=== PATIENT | male | born 1950 | race Caucasian/White ===

== ENCOUNTER 2017-01-17 18:50 | Inpatient (IN) | payer OTHER ==
[~2017-01-17 18:50] MED LIST: AMIO200 PO; ASPI325T PO; LIVA2TAB PO; METO50CR PO; RAMI10CA35 PO; TICA90 PO
[2017-01-17 18:55] VITALS: BP 189/103; PULSE 68; RESP 20; O2SAT 98
[2017-01-17] MEDS ORDERED: BRIL90TA PO (19:10)
[2017-01-17] MEDS ORDERED: METO100T PO (19:10)
[2017-01-17] MEDS ORDERED: RAMI10CA PO (19:10)
[2017-01-17] MEDS ORDERED: LIVA2TAB PO (19:10)
[2017-01-17 19:29] LABS: AUTOMATED NEUTROPHIL # 4.1 TH/MM3 (1.8-7.7); BASOPHIL % 0.5 % (0.0-2.0); EOSINOPHIL # 0.1 TH/MM3 (0-0.4); EOSINOPHIL % 1.9 % (0.0-4.0); HEMATOCRIT 42.4 % (39.0-51.0); HEMO FLAGS DIFF FINAL; LYMPH % 23.9 % (9.0-44.0); LYMPHOCYTE # 1.5 TH/MM3 (1.0-4.8); MEAN CELL VOLUME 81.1 FL (80.0-100.0); MEAN CORPUSCULAR HGB CONC 33.2 % (32.0-36.0); MONO % 8.2 % (0.0-8.0); NEUT % 65.5 % (16.0-70.0); PLATELET COUNT 165 TH/MM3 (150-450); RED BLOOD COUNT 5.23 MIL/MM3 (4.50-5.90); RED CELL DISTRIBUTION WIDTH 13.5 % (11.6-17.2); WHITE BLOOD COUNT 6.2 TH/MM3 (4.0-11.0)
[2017-01-17] MEDS ORDERED: ASPIRIN 81 MG CHEW TAB PO ONE (19:30)
[2017-01-17] MEDS ORDERED: SODIUM CHLORIDE 0.9% FLUSH 10 ML FLUSH IVF PRN (19:30)
[2017-01-17 19:37] LABS: CHLORIDE 107 MEQ/L (98-107); POTASSIUM 3.7 MEQ/L (3.5-5.1); SODIUM (NA) 142 MEQ/L (136-145)
[2017-01-17 19:40] LABS: ANION GAP 10 MEQ/L (5-15); BICARBONATE 25.4 MEQ/L (21.0-32.0)
[2017-01-17 19:41] LABS: BLOOD UREA NITROGEN 19 MG/DL (7-18); MAGNESIUM 2.3 MG/DL (1.5-2.5)
[2017-01-17 19:42] LABS: APTT (PATIENT) 28.9 SEC (24.3-30.1); INTERNATIONAL NORMALIZED RATIO 0.9 RATIO; PROTHROMBIN TIME - PATIENT 10.2 SEC (9.8-11.6)
[2017-01-17 19:44] LABS: ALT (GPT) 40 U/L (12-78); AST (GOT) 20 U/L (15-37); GLOMERULAR FILTRATION RATE 56 ML/MIN (>89)
[2017-01-17 19:45] LABS: TOTAL BILIRUBIN ADULT 0.3 MG/DL (0.2-1.0)
[2017-01-17 19:46] LABS: ALKALINE PHOSPHATASE 65 U/L (45-117)
--- NOTE | 2017-01-17 19:47 | RADHPO ---
EXAM DATE/TIME: 01/17/2017 19:27 [place] COMPARISON: CHEST SINGLE AP, February 22, 2016, 11:11. INDICATIONS : Chest pressure and pain since yesterday. MEDICAL HISTORY : Hypertension. SURGICAL HISTORY : CABG. Coronary artery stent. ENCOUNTER: Initial ACUITY: 2 days PAIN SCORE: 3/10 LOCATION: Left chest FINDINGS: The lungs are symmetrically aerated. There is a 2.5 cm peripherally calcified lesion in the upper la teral right lung which was present on prior chest x-ray in February 2016. The heart is normal in size. M ild tortuosity descending thoracic aorta. Evidence of prior median sternotomy. No evidence of pleur al effusion. CONCLUSION: No infiltrate seen. Stable peripherally calcified 2.5 cm lesion in the upper lateral right lung. Marcello Trujillo MD on January 17, 2017 at 19:44 Board Certified Radiologist. This report was verified electronically.
[2017-01-17 19:52] LABS: CREATINE KINASE 89 U/L (39-308)
[2017-01-17] MEDS ORDERED: NITROGLYCERIN 0.4 MG SL 25 TABS/BTL SL SCH (20:00)
[2017-01-17] MEDS ORDERED: HEPARIN SODIUM - IV 10,000 UNITS/10 ML VIAL IV ONE (20:30)
[2017-01-17] MEDS ORDERED: HEPARIN-D5W INJ 250 ML IV SCH (20:30)
[2017-01-17] MEDS ORDERED: MORPHINE SULFATE 4 MG/ML INJ IV PUSH PRN (21:00)
[2017-01-17] MEDS ORDERED: SODIUM CHLOR 0.9% 1000 ML INJ 1,000 ML IV SCH (21:00)
[2017-01-17] MEDS ORDERED: ONDANSETRON HCL 4 MG/2 ML VIAL IV PUSH PRN (21:00)
--- NOTE | 2017-01-17 21:20 | PD ---
HPI Chief Complaint: Chest Pain Time Seen by Provider: 19:16 Travel History International Travel<30 days: No Contact w/Intl Traveler<30days: No Traveled to known affect area: No History of Present Illness HPI Patient 66-year-old male with an extensive coronary artery disease history presents emergency Department with chest tightness on and off today last chest tightness was approximately 4:00 in the afternoon. Patient has a history of CABG in 2005 with extensive grafting to it appears to be the left coronary artery system. Patient is also been seen by Dr. Hankins in February 2016 and had coronary angiography for a NSTEMI at that time which showed significant disease in the distal right coronary artery posterior lateral branch as well as the mid right coronary artery and had stenting at that time to the distal right coronary artery. 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 Ivan in his home town. Today patient states he was having some chest tightness and sometimes just rating the left shoulder and bilateral neck which lasted for several minutes and then resolved when he relaxed. He states that he had this type of symptom in the past and decided he wanted to come in to check on make sure wasn't anything serious because he does not want to have CABG again. He does endorse some mild shortness of breath denies any nausea vomiting. Was on Xarelto in the past but is not taking that anymore and was on that for paroxysmal atrial fibrillation. He does take Brilinta every day. PFSH Past Medical History Hx Anticoagulant Therapy: Yes (XARELTO) Atrial Fibrillation: Yes Cardiovascular Problems: Yes High Cholesterol: Yes Coronary Artery Disease: Yes Diminished Hearing: No Deep Vein Thrombosis: Yes (CLOT POST KNEE SURGERY) Hypertension: Yes Myocardial Infarction: Yes Tetanus Vaccination: < 5 Years Influenza Vaccination: No ?: Not Past Surgical History Cardiac Surgery: Yes (CABG X 3) Other Surgery: Yes (INGUINAL HERANIA REPAIR RIGHT) Social History Alcohol Use: No Tobacco Use: Yes (QUIT CIGARS JUL 2016) Substance Use: No Allergies-Medications (Allergen,Severity, Reaction): Coded Allergies: Sulfa (Verified Allergy, Severe, HIVES,ITCHING, 02/22/16) Reported Meds & Prescriptions Reported Meds & Active Scripts Active Cordarone 200 Mg Tab (Amiodarone HCl) 200 Mg Tab 200 Mg PO DAILY 30 Days Brilinta 90 Mg Tab (Ticagrelor) 90 Mg Tab 90 Mg PO BID 30 Days Metoprolol Succinate ER 50 mg (Metoprolol Succinate) 50 Mg Tab 100 Mg PO HS 30 Days Reported Metoprolol Tartrate 100 Mg Tab 100 Mg PO BID Livalo (Pitavastatin) 2 Mg Tab 2 Mg PO DAILY Ramipril 10 Mg Cap 10 Mg PO DAILY Brilinta (Ticagrelor) 90 Mg Tab 90 Mg PO BID Livalo (Pitavastatin) 2 Mg Tab 2 Mg PO HS Aspirin 325 mg (Aspirin) 325 Mg Tab 325 Mg PO DAILY Ramipril 10 mg (Ramipril) 10 Mg Cap 1 Cap PO DAILY Review of Systems Except as stated in HPI: all other systems reviewed are Neg Physical Exam Narrative GENERAL: Well-developed well-nourished, appears quite comfortable in no apparent distress. SKIN: Focused skin assessment warm/dry. HEAD: Atraumatic. Normocephalic. EYES: Pupils equal and round. No scleral icterus. No injection or drainage. ENT: No nasal bleeding or discharge. Mucous membranes pink and moist. NECK: Trachea midline. No JVD. CARDIOVASCULAR: Regular rate and rhythm. No murmur appreciated. 2+ bilaterally equal pulses in all 4 extremity's. Well-healed midline sternotomy scar. RESPIRATORY: No accessory muscle use. Clear to auscultation. Breath sounds equal bilaterally. GASTROINTESTINAL: Abdomen soft, non-tender, nondistended. Hepatic and splenic margins not palpable. MUSCULOSKELETAL: No obvious deformities. No clubbing. No cyanosis. No edema. NEUROLOGICAL: Awake and alert. No obvious cranial nerve deficits. Motor grossly within normal limits. Normal speech. PSYCHIATRIC: Appropriate mood and affect; insight and judgment normal. Data Data Last Documented VS Vital Signs Date Time Temp Pulse Resp B/P Pulse Ox O2 Delivery O2 Flow Rate FiO2 01/17/17 19:10 20 01/17/17 18:55 68 189/103 98 Orders Ckmb (Isoenzyme) Profile (01/17/17 19:16) Complete Blood Count With Diff (01/17/17 19:16) Comprehensive Metabolic Panel (01/17/17 19:16) Magnesium (Mg) (01/17/17 19:16) Prothrombin Time / Inr (Pt) (01/17/17 19:16) Act Partial Throm Time (Ptt) (01/17/17 19:16) Troponin I (01/17/17 19:16) Chest, Single Ap (01/17/17 19:16) Ecg Monitoring (01/17/17 19:16) Bilateral Bp Monitoring (01/17/17 19:16) Iv Access Insert/Monitor (01/17/17 19:16) Oximetry (01/17/17 19:16) Oxygen Administration (01/17/17 19:16) Aspirin Chew (Aspirin Chew) (01/17/17 19:30) Sodium Chloride 0.9% Flush (Ns Flush) (01/17/17 19:30) Electrocardiogram (01/17/17 18:51) Nitroglycerin Sl (Nitrostat Sl) (01/17/17 20:00) Heparin Infusion FAY.Q1H (01/17/17 20:19) Heparin Inj (Heparin Inj) (01/17/17 20:30) Heparin Inj (Heparin Inj) (01/18/17 02:30) Heparin Inj (Heparin Inj) (01/18/17 02:30) Heparin-D5w Inj (Heparin-D5w Inj) (01/17/17 20:30) Cbc No Diff, Includes Plts (01/20/17 06:00) Act Partial Throm Time (Ptt) (01/18/17 03:19) Occult Blood (Hemoccult) Stool (01/17/17 20:19) Admit Order (Ed Use Only) (01/17/17 ) Labs Laboratory Tests Test 01/17/17 19:00 White Blood Count 6.2 TH/MM3 Red Blood Count 5.23 MIL/MM3 Hemoglobin 14.1 GM/DL Hematocrit 42.4 % Mean Corpuscular Volume 81.1 FL Mean Corpuscular Hemoglobin 27.0 PG Mean Corpuscular Hemoglobin 33.2 % Concent Red Cell Distribution Width 13.5 % Platelet Count 165 TH/MM3 Mean Platelet Volume 9.3 FL Neutrophils (%) (Auto) 65.5 % Lymphocytes (%) (Auto) 23.9 % Monocytes (%) (Auto) 8.2 % Eosinophils (%) (Auto) 1.9 % Basophils (%) (Auto) 0.5 % Neutrophils # (Auto) 4.1 TH/MM3 Lymphocytes # (Auto) 1.5 TH/MM3 Monocytes # (Auto) 0.5 TH/MM3 Eosinophils # (Auto) 0.1 TH/MM3 Basophils # (Auto) 0.0 TH/MM3 CBC Comment DIFF FINAL Differential Comment Prothrombin Time 10.2 SEC Prothromb Time International 0.9 RATIO Ratio Activated Partial 28.9 SEC Thromboplast Time Sodium Level 142 MEQ/L Potassium Level 3.7 MEQ/L Chloride Level 107 MEQ/L Carbon Dioxide Level 25.4 MEQ/L Anion Gap 10 MEQ/L Blood Urea Nitrogen 19 MG/DL Creatinine 1.30 MG/DL Estimat Glomerular Filtration 56 ML/MIN Rate Random Glucose 91 MG/DL Calcium Level 8.5 MG/DL Magnesium Level 2.3 MG/DL Total Bilirubin 0.3 MG/DL Aspartate Amino Transf 20 U/L (AST/SGOT) Alanine Aminotransferase 40 U/L (ALT/SGPT) Alkaline Phosphatase 65 U/L Total Creatine Kinase 89 U/L Troponin I 0.62 NG/ML Total Protein 7.7 GM/DL Albumin 3.6 GM/DL [facility] Medical Decision Making Medical Screen Exam Complete: Yes Emergency Medical Condition: Yes Interpretation(s) EKG shows normal sinus rhythm left axis deviation, incomplete left bundle branch block with poor R-wave progression. No concerning ST-T changes. Intervals otherwise within normal limits. Is a borderline EKG. Comparison of shows no change. Differential Diagnosis ACS, [place], CAD, NSTEMI, Narrative Course Patient roomed in emergency department, on arrival he is chest pain and chest tightness free. Mildly hypertensive. Without intervention his blood pressure has come down. He was given nitro paste aspirin as well as heparin after his troponin returned positive at 0.6. Patient was discussed with Dr. Estrella who is on -call for Dr. Botello's. Like the patient transferred to the main hospital for possible intervention tomorrow. Patient was discussed with Dr. Ritchie and he is willing to admit the patient. Patient is stable for transportation at this time. Last 24 hours Impressions Chest X-Ray 01/17/171915 Signed Impressions: Service Date/Time: Tuesday, January 17, 2017 19:27 - CONCLUSION: No infiltrate seen. Stable peripherally calcified 2.5 cm lesion in the upper lateral right lung. Marcello Trujillo MD Diagnosis Primary Impression: NSTEMI (non-ST elevated myocardial infarction) Admitting Information Admitting Physician Requests: Admit Condition: Stable Mack Zacarias MD Jan 17, 2017 21:20
[2017-01-17 21:30] VITALS: BP 169/97; PULSE 63; O2SAT 97
[2017-01-17 21:54] VITALS: O2SAT 95
[2017-01-17] MEDS ORDERED: NITROGLYCERIN 2% OINT 1 GM PACKET TOPICAL ONE (22:00)
[2017-01-17 22:41] VITALS: BP 148/82; PULSE 56; O2SAT 94
[2017-01-17 23:51] VITALS: BP 160/92; PULSE 59; RESP 18; TEMP 98; O2SAT 92
[2017-01-18] VITALS (15 sets, daily range): BP systolic 138–178; BP diastolic 80–106; PULSE 51–66; RESP 16–18; TEMP 97.4–98.6; O2SAT 93–99
--- NOTE | 2017-01-18 01:47 | HHI.HP ---
[facility] Service [facility] Primary Care Physician Mariia Chawla MD Admission Diagnosis NSTEMI Diagnoses: (1) NSTEMI (non-ST elevated myocardial infarction) Diagnosis: Principal Chief Complaint: chest tightness Travel History International Travel<30 Days: No Contact w/Intl Traveler <30 Da: No Traveled to Known Affected Are: No History of Present Illness patient is a 66 y/o male with history of CAD- s/p stent placement presented to ER with chest tightness. he says that he started to have chest pain a couple of days ago. pain was described as tightness with some radiation to both jaws. pain was not associated with nausea, vomiting, sob or diaphoresis. there was no specific aggravating or alleviating factors. he was pain free at the time of my evaluation. Review of Systems Constitutional: DENIES: Fever, Weight loss, Chills, Night Sweats Eyes: DENIES: Blurred vision, Diplopia, Vision loss, Double Vision Ears, nose, mouth, throat: DENIES: Tinnitus, Vertigo, Throat pain, Epistaxis Respiratory: DENIES: Apneas, Cough, Snoring, Wheezing, Hemoptysis, Sputum production, Shortness of breath Cardiovascular: COMPLAINS OF: Chest pain, DENIES: Palpitations, Syncope, Dyspnea on Exertion, PND, Lower Extremity Edema, Orthopnea, Claudication Gastrointestinal: DENIES: Abdominal pain, Black stools, Bloody stools, Constipation, Diarrhea, Nausea, Vomiting, Difficulty Swallowing, Anorexia Genitourinary: DENIES: Urinary frequency, Urgency, Hematuria, Dysuria Musculoskeletal: DENIES: Joint pain, Muscle aches, Stiffness, Joint Swelling Integumentary: DENIES: Rash Neurologic: DENIES: Abnormal gait, Headache, Localized weakness, Paresthesias, Seizures, Speech Problems, Tremor, Poor Balance Psychiatric: DENIES: Anxiety, Confusion, Mood changes, Depression, Hallucinations, Agitation, Suicidal Ideation, Homicidal Ideation, Delusions Past Family Social History Past Medical History CAD hypertension dyslipidemia Past Surgical History knee/ shoulder surgery hernia repair Reported Medications Metoprolol Tartrate 100 Mg Tab 100 Mg PO BID Livalo (Pitavastatin) 2 Mg Tab 2 Mg PO DAILY Ramipril 10 Mg Cap 10 Mg PO DAILY Brilinta (Ticagrelor) 90 Mg Tab 90 Mg PO BID Livalo (Pitavastatin) 2 Mg Tab 2 Mg PO HS Aspirin 325 mg (Aspirin) 325 Mg Tab 325 Mg PO DAILY Ramipril 10 mg (Ramipril) 10 Mg Cap 1 Cap PO DAILY Allergies: Coded Allergies: Sulfa (Verified Allergy, Severe, HIVES,ITCHING, 02/22/16) Active Ordered Medications Current Medications Aspirin (Aspirin Chew) 324 mg ONCE ONCE PO Last administered on 01/17/17 19:22 ; Start 01/17/17 at 19:30; Stop 01/17/17 at 19:31; Status DC Sodium Chloride (NS Flush) 2 ml UNSCH PRN IVF FLUSH AFTER USING IV ACCESS; Start 01/17/17 at 19:30 Nitroglycerin (Nitrostat Sl) 0.4 mg Q5M SL ; Start 01/17/17 at 20:00; Stop at 20:11; Status DC Heparin Sodium (Porcine) (Heparin Inj) 5,000 units ONCE ONCE IV Last administered on 01/17/17 20:51; Start 01/17/17 at 20:30; Stop 01/17/17 at 20:41; Status DC Heparin Sodium (Porcine) (Heparin Inj) 5,000 units UNSCH PRN IV APTT LESS THAN 25; Start 01/18/17 at 02:30 Heparin Sodium (Porcine) 2500 units 2,500 units UNSCH PRN IV APTT 25 TO 39; Start 01/18/17 at 02:30 Heparin Sodium/ Dextrose (Heparin-D5W Inj) 250 ml @ 0 mls/hr TITRATE IV Last administered on 01/17/17 20:54; Start 01/17/17 at 20:30 Morphine Sulfate (Morphine Inj) 2 mg Q4HR PRN IV PUSH PAIN SCALE 1 TO 10; Start 01/17/17 at 21:00 Ondansetron HCl 4 mg 4 mg Q8HR PRN IV PUSH NAUSEA; Start 01/17/17 at 21:00 Sodium Chloride (NS 1000 ml Inj) 1,000 ml @ 100 mls/hr Q10H IV Last administered on 01/17/17 21:39; Start 01/17/17 at 21:00 Nitroglycerin (Nitroglycerin 2% Oint) 0.5 inch ONCE ONCE TOPICAL Last administered on 01/17/17t 22:04; Start 01/17/17 at 22:00; Stop 01/17/17 at 22:01; Status DC Family History stroke in father. Social History no smoking or drinking. Physical Exam Vital Signs Vital Signs Date Time Temp Pulse Resp B/P Pulse Ox O2 Delivery O2 Flow Rate FiO2 01/17/17 23:51 98.0 59 18 160/92 92 01/17/17 22:41 56 148/82 94 01/17/17 21:54 95 01/17/17 21:30 63 169/97 97 01/17/17 19:10 20 01/17/17 18:55 68 20 189/103 98 Physical Exam GENERAL: This is a well-nourished, well-developed patient, in no apparent distress. SKIN: No rashes, ecchymoses or lesions. Cool and dry. HEAD: Atraumatic. Normocephalic. No temporal or scalp tenderness. EYES: Pupils equal round and reactive. Extraocular motions intact. No scleral icterus. No injection or drainage. ENT: Nose without bleeding, purulent drainage or septal hematoma. Throat without erythema, tonsillar hypertrophy or exudate. Uvula midline. Airway patent. NECK: Trachea midline. No JVD or lymphadenopathy. Supple, nontender, no meningeal signs. CARDIOVASCULAR: Regular rate and rhythm without murmurs, gallops, or rubs. RESPIRATORY: Clear to auscultation. Breath sounds equal bilaterally. No wheezes , rales, or rhonchi. GASTROINTESTINAL: Abdomen soft, non-tender, nondistended. No hepato-splenomegaly , or palpable masses. No guarding. MUSCULOSKELETAL: Extremities without clubbing, cyanosis, or edema. No joint tenderness, effusion, or edema noted. No calf tenderness. Negative Homans sign bilaterally. NEUROLOGICAL: Awake and alert. Cranial nerves II through XII intact. Motor and sensory grossly within normal limits. Five out of 5 muscle strength in all muscle groups. Normal speech. Laboratory Laboratory Tests Test 01/17/17 19:00 White Blood Count 6.2 Red Blood Count 5.23 Hemoglobin 14.1 Hematocrit 42.4 Mean Corpuscular Volume 81.1 Mean Corpuscular Hemoglobin 27.0 Mean Corpuscular Hemoglobin 33.2 Concent Red Cell Distribution Width 13.5 Platelet Count 165 Mean Platelet Volume 9.3 Neutrophils (%) (Auto) 65.5 Lymphocytes (%) (Auto) 23.9 Monocytes (%) (Auto) 8.2 Eosinophils (%) (Auto) 1.9 Basophils (%) (Auto) 0.5 Neutrophils # (Auto) 4.1 Lymphocytes # (Auto) 1.5 Monocytes # (Auto) 0.5 Eosinophils # (Auto) 0.1 Basophils # (Auto) 0.0 CBC Comment DIFF FINAL Differential Comment Prothrombin Time 10.2 Prothromb Time International 0.9 Ratio Activated Partial 28.9 Thromboplast Time Sodium Level 142 Potassium Level 3.7 Chloride Level 107 Carbon Dioxide Level 25.4 Anion Gap 10 Blood Urea Nitrogen 19 Creatinine 1.30 Estimat Glomerular Filtration 56 Rate Random Glucose 91 Calcium Level 8.5 Magnesium Level 2.3 Total Bilirubin 0.3 Aspartate Amino Transf 20 (AST/SGOT) Alanine Aminotransferase 40 (ALT/SGPT) Alkaline Phosphatase 65 Total Creatine Kinase 89 Troponin I 0.62 Total Protein 7.7 Albumin 3.6 Result Diagram: 01/17/17189901/17/171899 Imaging Last Impressions Chest X-Ray 01/17/171915 Signed Impressions: Service Date/Time: Tuesday, January 17, 2017 19:27 - CONCLUSION: No infiltrate seen. Stable peripherally calcified 2.5 cm lesion in the upper lateral right lung. Marcello Trujillo MD EKG; sinus rhythm with no acute St-T changes Assessment and Plan Assessment and Plan A/P - NSTEMI with history of CAD/ stent placement received Aspirin in ER and started on heparin drip- resume BB- will trend the cardiac enzymes- cardiology consulted. -hypertension/ dyslipidemia; will resume the home meds -DVT prophylaxis; on heparin drip Discussed Condition With ER physician and the patient. Physician Certification 2 Midnight Certification Type: Admission for Inpatient Services Order for Inpatient Services The services are ordered in accordance with Medicare regulations or non- Medicare payer requirements, as applicable. In the case of services not specified as inpatient-only, they are appropriately provided as inpatient services in accordance with the 2-midnight benchmark. Estimated LOS (days): 2 days is the estimated time the patient will need to remain in the hospital, assuming treatment plan goals are met and no additional complications. Post-Hospital Plan: Home Esther Cortez MD Jan 18, 2017 01:47
[2017-01-18] MEDS ORDERED: HEPARIN SODIUM - IV 10,000 UNITS/10 ML VIAL IV PRN ×2 (02:30)
[2017-01-18 05:01] LABS: APTT (PATIENT) 57.8 SEC (24.3-30.1)
--- NOTE | 2017-01-18 08:06 | HHI.PR ---
Addendum to Inpatient Note Addendum Reason: Additional Documentation Additional Information Pt presented w NSTEMI I evaluated the patient and currently he is chest pain free at this time. Hoping to go home soon. Saw Dr. 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 States that he didn't have any chest pain but was experiencing chest tightness on and off and decided to come in to get checked. at this time, no nausea or vomiting, or any diaphoresis or lightheadedness. on Exam CVS RRR w no murmurs, lungs are clear to auscultation, abdomen soft, NT no guarding or rebound. Moves all extremities. Plan: - NSTEMI with history of CAD/ stent placement received Aspirin in ER and started on heparin drip- on BB, continue ASA, supplemental oxygen, nitroglycerin - trop 0.62-->0.55--> pending- cardiology consulted. -hypertension/ dyslipidemia; home meds resumed. monitor and adjust BP meds -DVT prophylaxis; on heparin ip Debora Alexandra MD Jan 18, 2017 08:06
[2017-01-18] MEDS ORDERED: NITROGLYCERIN 2% OINT 1 GM PACKET TOPICAL PRN (08:15)
[2017-01-18 08:20] LABS: HDL CHOLESTEROL 59.6 MG/DL (40.0-60.0)
[2017-01-18] MEDS ORDERED: LIVALO 2 MG PO SCH (09:00)
[2017-01-18] MEDS ORDERED: ASPIRIN 325 MG TAB PO SCH ×2 (09:00→10:30)
--- NOTE | 2017-01-18 09:50 | EKG ---
Date Performed: 01/17/2017 Time Performed: 18:51:06 PTAGE: 66 years EKG: Sinus rhythm . PREVIOUS TRACING : 02/26/2016 08.35 DOCTOR: Claus Wetzel Interpretating Date/Time 01/18/2017 09:49:31
[2017-01-18] MEDS: RAMIPRIL 5 MG CAP PO SCH (10:20)
[2017-01-18] MEDS: METOPROLOL TARTRATE 100 MG TAB PO SCH ×2 (10:20→20:51)
[2017-01-18] MEDS ORDERED: SODIUM CHLOR 0.9% 1000 ML INJ 1,000 ML IV SCH (10:23)
[2017-01-18] MEDS ORDERED: DIAZEPAM 10 MG TAB PO SCH (10:30)
[2017-01-18] MEDS ORDERED: diphenhydrAMINE HCL 50 MG CAP PO SCH (10:30)
--- NOTE | 2017-01-18 11:07 | MB ---
cc: YUNIOR LOPEZ DATE OF CONSULTATION 01/18/2017 DATE OF 1950 REASON FOR CONSULTATION Abnormal cardiac enzymes, unstable angina. HISTORY OF PRESENT ILLNESS The patient is a 66-year-old white male with a history of coronary artery disease, hypertension, hyperlipidemia, paroxysmal atrial fibrillation, mild ischemic cardiomyopathy who was doing well up until a few days ago when he began to experience intermittent episodes of brief substernal chest tightness occasionally associated with shortness of breath. Two nights ago, he experienced the discomfort while lying in bed. Yesterday he had multiple episodes of chest discomfort, so he finally decided to come to the emergency room for further evaluation. He states none of the episodes of chest discomfort lasted more than a few minutes. The symptoms are similar to his previous angina. He denies pleurisy, dizziness, syncope, near-syncope, palpitations, pedal edema, paroxysmal nocturnal dyspnea. He reports compliance with his medications and exercise activities. Cardiac enzymes were checked here in the hospital and found to be slightly abnormal. PAST MEDICAL HISTORY 1. Paroxysmal atrial fibrillation. 2. Mild ischemic cardiomyopathy with ejection fraction of 40-45% by echo 06/22/2016. 3. Hypertension 4. Hyperlipidemia 5. Coronary artery disease status post bypass surgery 2005, status post myocardial infarction and percutaneous coronary intervention in 2010. His last heart catheterization was 02/23/2016 showing minimal left main disease, totally occluded proximal LAD, totally occluded obtuse marginal, 60-70% proximal and 95% mid right coronary artery stenoses, patent distal right coronary stent, 95% distal right coronary lesion, 80% ostial posterior descending artery (small caliber), patent Y-graft to the diagonal and obtuse marginal, patent left internal mammary artery to the LAD. At that time, he underwent stenting of the distal right coronary with a 3.0-mm Resolute and stent of the proximal to mid right coronary with a 3.5 x 34 Resolute. His posterior descending artery ostium was also angioplastied, but was jailed with deployment of the distal right coronary stent. CARDIAC MEDICATIONS AT HOME 1. Amiodarone 200 mg daily 2. Aspirin 81 mg daily 3. Brilinta 90 mg b.i.d. 4. Livalo 2 mg q.h.s. 5. Metoprolol succinate 100 mg daily 6. Ramipril 10 mg daily ALLERGIES SULFA FAMILY HISTORY Noncontributory SOCIAL HISTORY The patient is a former smoker. He denies alcohol abuse. REVIEW OF SYSTEMS As in the history of present illness, otherwise negative or noncontributory. He also denies headache, abdominal pain, melena, dyspepsia, bright red blood per rectum, fevers. PHYSICAL EXAM On physical examination, his blood pressure is 153/83 with a pulse of 59, respirations 18. GENERAL: In general, he is a well-developed, well-nourished white male in no acute distress. HEENT: On examination, jugular venous pressure is normal. Carotid pulses are 2+ bilaterally and without bruits. CHEST: Examination of the chest reveals clear lung riddle. CARDIAC: On cardiac examination, he has a regular rhythm and rate without S3, S4 or murmur. ABDOMEN: On abdominal examination, he has a soft, nontender abdomen. Bowel sounds are present. There is no definite hepatosplenomegaly. EXTREMITIES: Examination of extremities reveals no clubbing, cyanosis or edema. Peripheral pulses are normal throughout. LABORATORY DATA Includes normal CBC, potassium 3.7, BUN 19, creatinine 1.30, troponin 0.62, CK 89, total cholesterol 131, LDL 52, HDL 60, triglycerides 98. IMAGING Chest x-ray shows no acute disease. EKG Shows sinus rhythm, poor R-wave progression, nonspecific T-wave abnormalities. IMPRESSION Unstable angina in this 66-year-old white male with a history of coronary disease, hypertension, hyperlipidemia, paroxysmal atrial fibrillation, ejection fraction 40-45%. The patient's symptoms over the last few days are most consistent with recurrent angina in an overall unstable pattern. He has had episodes of angina at rest. Troponin levels are slightly abnormal. A CK level is negative for myocardial infarction. EKG shows no definite acute diagnostic ST-segment or T-wave changes. I suspect he has restenosed his distal right coronary artery stent. Because of the instability of his symptoms, I have recommended he undergo cardiac catheterization with possible repeat percutaneous coronary intervention the risks of which have been explained to him including, but not limited to , myocardial infarction, stroke, arrhythmia, bleeding, infection, renal failure. He agrees to proceed. RECOMMENDATIONS 1. Cardiac catheterization today. 2. Continue his usual home cardiac medications MandoMD ADRIANNA Perez/MAYTE /10:17 AM /10:46 AM KATHLEEN
[2017-01-18 11:15] LABS: APTT (PATIENT) 43.9 SEC (24.3-30.1)
[2017-01-18] MEDS ORDERED: MIDAZOLAM HCL 2 MG/2 ML VIAL ONE (16:03)
[2017-01-18] MEDS ORDERED: HEPARIN-NS/PF INJ 500 ML ONE (16:03)
[2017-01-18] MEDS ORDERED: TIROFIBAN INFUSION INJ 250 ML IV ONE (16:23)
[2017-01-18] MEDS: TIROFIBAN INFUSION INJ 250 ML IV SCH (16:26)
[2017-01-18] MEDS ORDERED: HEPARIN SODIUM - IV 10,000 UNITS/10 ML VIAL ONE (16:27)
[2017-01-18] MEDS ORDERED: TICAGRELOR 90 MG TAB PO ONE (16:51)
[2017-01-18] MEDS ORDERED: MISC INFORMATION XX ONE (17:15)
[2017-01-18] MEDS ORDERED: SODIUM CHLORIDE 0.9% FLUSH 5 ML FLUSH IVF PRN (17:15)
[2017-01-18] MEDS ORDERED: TEMAZEPAM 15 MG CAP PO PRN (17:15)
[2017-01-18] MEDS: AMIODARONE 200 MG TAB PO SCH ×2 (18:12→18:35)
[2017-01-18] MEDS: SODIUM CHLOR 0.9% 1000 ML INJ 1,000 ML IV SCH (18:13)
[2017-01-18] MEDS ORDERED: hydrALAZINE HCL 10 MG TAB PO PRN (18:30)
[2017-01-18] MEDS ORDERED: ENALAPRILAT 1.25 MG/ML VIAL IV PUSH PRN (18:30)
--- NOTE | 2017-01-18 19:34 | MA ---
cc: KIRK LOPEZ M.D. DATE 01/18/2017 Cc: PROCEDURE Left heart catheterization, selective coronary and graft angiography, left ventriculography, primary stenting of the proximal right coronary artery. PROCEDURE NOTE The patient was brought to the cardiac catheterization laboratory in fasting state after having signed informed consent. The right groin was prepped and draped as per policy and anesthetized with 1% lidocaine. Arterial access was obtained via the right femoral artery and a 6-[place] sheath placed. Coronary arteriography was performed using 6-[place] Maria M left 4.0 and right progressive catheters. The left internal mammary artery graft was engaged with the progress right catheter. The vein graft was engaged with a left coronary bypass catheter. Left ventriculography was done using a standard 6-[place] pigtail. Percutaneous coronary intervention was done as described below. There were no apparent immediate complications. HEMODYNAMIC RESULTS Left ventricle 149 with an end-diastolic pressure of 15. Aorta 143/68 with a mean of 98. There was no significant transvalvular aortic gradient on pullback of the pigtail catheter. CORONARY ARTERIOGRAPHY The left main is a large-caliber vessel with no definite disease. The left anterior descending is diffusely diseased proximally with a 50% lesion followed by total occlusion. The LAD gives rise to a tiny diagonal which has 70% ostial stenosis. The left circumflex is a fairly small vessel giving rise to a small first obtuse marginal which is free of disease. There is likely a totally occluded obtuse marginal arising from the proximal left circumflex. The right coronary artery demonstrates a stent encompassing the proximal to midportion and what appears to be two stents distally. At the most proximal edge of the proximal stent there is 75-80% restenosis. The lesion does appear to extend beyond the edge of the stent. The rest of the stent and the other two stents distally are widely patent. A very small caliber posterior descending artery has diffuse ostial to proximal disease resulting in up to 25% stenosis. The very proximal right coronary has diffuse disease up to 30% stenosis. GRAFT ANGIOGRAPHY The left internal mammary artery to the LAD is widely patent to a relatively small vessel. The Y-graft to the diagonal and obtuse marginal is widely patent. The limb to the obtuse marginal may have 50% at its origin. LEFT VENTRICULOGRAPHY Contrast injection of the left ventricle reveals no definite segmental wall motion abnormalities. Ejection fraction is estimated at 50%. PERCUTANEOUS CORONARY INTERVENTION DESCRIPTION Aggrastat was given as per protocol. Adequate heparin was given during the procedure to achieve an ACT greater than 300 seconds. Using a 6-[place] progressive right guiding catheter the ostium of the right coronary artery was re-engaged. Using a 0.014 [place] guidewire the stenosis in the proximal vessel was crossed without difficulty and the tip of the wire positioned distally. Primary stenting was done using a 3.5 x 12-mm Resolute stent which was deployed at approximately 15 atmospheres for 40 seconds. Final angiography shows overall good results with reduction of the lesion to roughly 0% residual with no definite evidence for dissection or distal embolization. The patient tolerated the procedure well. He was sedated throughout the case. CONCLUSION 1. Severe three-vessel [place] coronary artery disease. 2. Patent left internal mammary artery to the LAD and patent Y-graft to the diagonal and obtuse marginal. 3. Low normal left ventricular systolic function with estimated ejection fraction of 50%. 4. Status post primary stenting of the [place] proximal right coronary artery. MD ADRIANNA Schreiber/KK /4:57 PM /7:11 PM KATHLEEN
[2017-01-18] MEDS: TICAGRELOR 90 MG TAB PO SCH (20:50)
[2017-01-18] MEDS: SODIUM CHLORIDE 0.9% FLUSH 5 ML FLUSH IVF SCH (21:00)
[2017-01-19] VITALS (14 sets, daily range): BP systolic 135–149; BP diastolic 80–91; PULSE 52–70; RESP 16–17; TEMP 98.1–98.7; O2SAT 94–96
[2017-01-19] MEDS: TIROFIBAN INFUSION INJ 250 ML IV SCH (05:16)
[2017-01-19] MEDS: SODIUM CHLOR 0.9% 1000 ML INJ 1,000 ML IV SCH (05:16)
[2017-01-19 06:04] LABS: BASOPHIL # 0.1 TH/MM3 (0-0.2); BASOPHIL % 0.8 % (0.0-2.0); EOSINOPHIL # 0.2 TH/MM3 (0-0.4); EOSINOPHIL % 2.2 % (0.0-4.0); HEMATOCRIT 39.2 % (39.0-51.0); HEMO FLAGS DIFF FINAL; LYMPH % 17.1 % (9.0-44.0); LYMPHOCYTE # 1.2 TH/MM3 (1.0-4.8); MEAN CELL VOLUME 80.4 FL (80.0-100.0); MEAN CORPUSCULAR HEMOGLOBIN 26.6 PG (27.0-34.0); MEAN CORPUSCULAR HGB CONC 33.1 % (32.0-36.0); MONO % 6.6 % (0.0-8.0); NEUT % 73.3 % (16.0-70.0); PLATELET COUNT 130 TH/MM3 (150-450); RED BLOOD COUNT 4.88 MIL/MM3 (4.50-5.90); RED CELL DISTRIBUTION WIDTH 14.1 % (11.6-17.2); WHITE BLOOD COUNT 6.9 TH/MM3 (4.0-11.0)
[2017-01-19 06:16] LABS: APTT (PATIENT) 28.6 SEC (24.3-30.1)
[2017-01-19 07:52] LABS: BICARBONATE 25.3 MEQ/L (21.0-32.0); POTASSIUM 3.8 MEQ/L (3.5-5.1)
[2017-01-19 08:00] LABS: HDL CHOLESTEROL 60.5 MG/DL (40.0-60.0)
--- NOTE | 2017-01-19 08:19 | PD.CARD.PN ---
Subjective Subjective Remarks Denies CP, groin pain, SOB, dizziness. Objective Medications Item Value Date Time Tirofiban/Sodium 250 ml @ 15.48 mls/hr 02/22/16 1300 Chloride CONTINUOUS WT BASED/IV 02/23/16 0539 Aspirin 81 mg 01/19/17 0900 (Aspirin Chew) DAILY/PO Ticagrelor 90 mg 01/18/17 2100 (Brilinta) BID/PO Amiodarone HCl 200 mg 01/18/17 1800 (Cordarone) DAILY@18/PO Tirofiban/Sodium 250 ml @ 15.66 mls/hr 01/18/17 1701 Chloride [id number] 01/19/17 0516 Metoprolol 100 mg 01/18/17 0900 Tartrate BID/PO 01/18/17 2051 (Lopressor) Ramipril 10 mg 01/18/17 0900 (Altace) DAILY/PO 01/18/17 1020 Vital Signs / I&O Vital Signs Date Time Temp Pulse Resp B/P Pulse Ox O2 Delivery O2 Flow Rate FiO2 01/19/17 06:00 52 01/19/17 05:00 54 01/19/17 04:00 56 01/19/17 03:00 58 01/19/17 03:00 98.7 57 16 135/91 96 01/19/17 02:00 52 01/19/17 01:00 60 01/19/17 00:00 52 01/18/17 23:00 58 01/18/17 23:00 98.5 56 16 149/87 97 01/18/17 22:42 97 01/18/17 22:00 66 01/18/17 21:00 62 01/18/17 20:00 62 01/18/17 20:00 64 150/91 01/18/17 19:30 58 150/92 01/18/17 19:00 62 162/80 01/18/17 19:00 62 01/18/17 19:00 98.5 62 16 162/90 97 01/18/17 18:30 178/106 01/18/17 17:10 53 01/18/17 17:08 54 17 158/94 99 01/18/17 15:10 158/94 01/18/17 13:43 51 01/18/17 11:02 97.9 51 17 148/88 96 I/O 01/18/17 01/18/17 01/18/17 01/19/17 01/19/17 01/19/17 07:00 15:00 23:00 07:00 15:00 23:00 Intake Total 1601 ml Output Total 250 ml 1550 ml Balance -250 ml 51 ml Intake Oral 480 ml IV Total 1121 ml Output Urine Total 250 ml 1550 ml Physical Exam GENERAL: Well developed, well nourished. No acute distress. HEENT: Jugular venous pressure is normal. CHEST: Lungs clear to auscultation bilaterally. Unlabored respiratory effort. CARDIAC: Regular rate and rhythm without S3, S4, or murmur. ABDOMEN: Soft, nontender, no hepatosplenomegaly. Bowel sounds present. EXTREMITIES: No clubbing, cyanosis, or edema. Right groin nontender, no hematoma. Laboratory Laboratory Tests Test 01/18/17 01/19/17 10:33 05:50 Activated Partial 43.9 SEC 28.6 SEC Thromboplast Time White Blood Count 6.9 TH/MM3 Red Blood Count 4.88 MIL/MM3 Hemoglobin 13.0 GM/DL Hematocrit 39.2 % Mean Corpuscular Volume 80.4 FL Mean Corpuscular Hemoglobin 26.6 PG Mean Corpuscular Hemoglobin 33.1 % Concent Red Cell Distribution Width 14.1 % Platelet Count 130 TH/MM3 Mean Platelet Volume 8.9 FL Neutrophils (%) (Auto) 73.3 % Lymphocytes (%) (Auto) 17.1 % Monocytes (%) (Auto) 6.6 % Eosinophils (%) (Auto) 2.2 % Basophils (%) (Auto) 0.8 % Neutrophils # (Auto) 5.0 TH/MM3 Lymphocytes # (Auto) 1.2 TH/MM3 Monocytes # (Auto) 0.5 TH/MM3 Eosinophils # (Auto) 0.2 TH/MM3 Basophils # (Auto) 0.1 TH/MM3 CBC Comment DIFF FINAL Differential Comment Sodium Level 141 MEQ/L Potassium Level 3.8 MEQ/L Chloride Level 107 MEQ/L Carbon Dioxide Level 25.3 MEQ/L Anion Gap 9 MEQ/L Blood Urea Nitrogen 14 MG/DL Creatinine 1.12 MG/DL Estimat Glomerular Filtration 66 ML/MIN Rate Random Glucose 79 MG/DL Calcium Level 8.2 MG/DL Total Creatine Kinase 84 U/L Triglycerides Level 97 MG/DL Cholesterol Level 137 MG/DL LDL Cholesterol 57 MG/DL HDL Cholesterol 60.5 MG/DL Cholesterol/HDL Ratio 2.26 RATIO Assessment and Plan Problem List: (1) Coronary artery disease Assessment and Plan: Stable overnight s/p repeat PCI of proximal RCA. Groin stable. OK to discharge today, same home medications, 4 week f/u with me. (2) Hyperlipidemia Assessment and Plan: Good lipid profile here in the hospital. Continue Livalo. (3) Hypertension Assessment and Plan: Elevated BP's in the hospital, usually normal on office f/ u's. Will continue to monitor as outpatient. Also will maintain increased dose of Toprol (he was only on 100 mg qd at home). (4) Paroxysmal atrial fibrillation Assessment and Plan: Stable. No evidence for recurrent significant atrial fib. Thromboembolic risk is low. Rec continue daily aspirin, beta rick. Code Status full code Discussed Condition With patient Problem Qualifiers (1) Coronary artery disease: Qualified Code: I25.110 - Coronary artery disease involving [place] coronary artery of [place] heart with unstable angina pectoris (2) Hyperlipidemia: Qualified Code: E78.2 - Mixed hyperlipidemia (3) Hypertension: Qualified Code: I10 - Essential hypertension Mando Wright MD Jan 19, 2017 08:19
[2017-01-19] MEDS ORDERED: ASPIRIN 81 MG CHEW TAB PO SCH (09:00)
[2017-01-19] MEDS: SODIUM CHLORIDE 0.9% FLUSH 5 ML FLUSH IVF SCH (09:00)
[2017-01-19] MEDS ORDERED: PITAVASTATIN 1 MG PO SCH (09:00)
[2017-01-19] MEDS: METOPROLOL TARTRATE 100 MG TAB PO SCH (09:14)
[2017-01-19] MEDS: RAMIPRIL 5 MG CAP PO SCH (09:14)
[2017-01-19] MEDS: TICAGRELOR 90 MG TAB PO SCH (09:15)
[2017-01-19] MEDS ORDERED: BRIL90TA PO (10:39)
--- NOTE | 2017-01-19 10:39 | HHI.DCPOC ---
Discharge Care Plan Diagnosis: (1) NSTEMI (non-ST elevated myocardial infarction) Goals to Promote Your Health * To prevent worsening of your condition and complications * To maintain your health at the optimal level Directions to Meet Your Goals Take your medications as prescribed Follow your dietary instruction Follow activity as directed Keep your appointments as scheduled Take your immunizations and boosters as scheduled If your symptoms worsen call your PCP, if no PCP go to Urgent Care Center or Emergency Room Smoking is Dangerous to Your Health. Avoid second hand smoke Call the 24-hour hour crisis hotline for domestic abuse at Debora Alexandra MD Jan 19, 2017 10:39
[2017-01-19] MEDS ORDERED: METO100T PO (10:48)
--- NOTE | 2017-01-19 10:52 | HHI.PR ---
Subjective Remarks Pt feels well. denies any CP/SOB/N/V Ready to go home today. Objective Vitals Vital Signs Date Time Temp Pulse Resp B/P Pulse Ox O2 Delivery O2 Flow Rate FiO2 01/19/17 09:42 94 21 01/19/17 07:15 98.1 55 17 149/80 95 01/19/17 06:00 52 01/19/17 05:00 54 01/19/17 04:00 56 01/19/17 03:00 58 01/19/17 03:00 98.7 57 16 135/91 96 01/19/17 02:00 52 01/19/17 01:00 60 01/19/17 00:00 52 01/18/17 23:00 58 01/18/17 23:00 98.5 56 16 149/87 97 01/18/17 22:42 97 01/18/17 22:00 66 01/18/17 21:00 62 01/18/17 20:00 62 01/18/17 20:00 64 150/91 01/18/17 19:30 58 150/92 01/18/17 19:00 62 162/80 01/18/17 19:00 62 01/18/17 19:00 98.5 62 16 162/90 97 01/18/17 18:30 178/106 01/18/17 17:10 53 01/18/17 17:08 54 17 158/94 99 01/18/17 15:10 158/94 01/18/17 13:43 51 01/18/17 11:02 97.9 51 17 148/88 96 I/O 01/18/17 01/18/17 01/18/17 01/19/17 01/19/17 01/19/17 07:00 15:00 23:00 07:00 15:00 23:00 Intake Total 1601 ml Output Total 250 ml 1550 ml Balance -250 ml 51 ml Intake Oral 480 ml IV Total 1121 ml Output Urine Total 250 ml 1550 ml Result Diagram: 01/19/17 0550 01/19/17 0550 Imaging Last Impressions Chest X-Ray 01/17/171915 Signed Impressions: Service Date/Time: Tuesday, January 17, 2017 19:27 - CONCLUSION: No infiltrate seen. Stable peripherally calcified 2.5 cm lesion in the upper lateral right lung. Marcello Trujillo MD Objective Remarks GENERAL: This is a well-nourished, well-developed patient, in no apparent distress. CARDIOVASCULAR: Regular rate and rhythm without murmurs RESPIRATORY: Clear to auscultation. Breath sounds equal bilaterally. No wheezes GASTROINTESTINAL: Abdomen soft, non-tender, nondistended. No guarding. MUSCULOSKELETAL: moves extremities well. NEUROLOGICAL: Awake and alert. Cranial nerves II through XII intact. Normal speech. A/P Problem List: (1) NSTEMI (non-ST elevated myocardial infarction) ICD Code: I21.4 Status: Resolved Plan: Plan: - NSTEMI with history of CAD/ stent placement doing well. s/p repeat PCI of proximal RCA. dose of metoprolol increased to 100mg BID. continue brilinta, home dose of ASA. f/u w cards in 4 weeks. -hypertension/ dyslipidemia; continue home med. Monitor BP as an outpatient. -Hx of atrial fib: ASA and metoprolol Assessment and Plan d/c home today f/u w cards in 4 weeks script in chart activity ad aleyda heart healthy diet Debora Alexandra MD Jan 19, 2017 10:52 Debora Alexandra MD Jan 19, 2017 10:52
[2017-01-19] MEDS ORDERED: IOHEXOL 350 MG/ML 100 ML BTL (for Cath Lab) OTHER ONE (16:18)
== END 2017-01-19 11:47 | disposition home or self-care (01) | DRG 247 ==
LOC: PHED 18:50 → PHEDA 20:58 → NEPHCDU 23:43 → HCIN 01-18 17:15
PROVIDERS: ADMIT Hospitalist; ATTEND Hospitalist
PROC: 4A023N7 Measurement of Cardiac Sampling and Pressure, Left Heart, Percutaneous Approach (ICD-10-PCS; 2017-01-18)
PROC: B2111ZZ Fluoroscopy of Multiple Coronary Arteries using Low Osmolar Contrast (ICD-10-PCS; 2017-01-18)
PROC: B2181ZZ Fluoroscopy of Left Internal Mammary Bypass Graft using Low Osmolar Contrast (ICD-10-PCS; 2017-01-18)
PROC: B2151ZZ Fluoroscopy of Left Heart using Low Osmolar Contrast (ICD-10-PCS; 2017-01-18)
PROC: B2121ZZ Fluoroscopy of Single Coronary Artery Bypass Graft using Low Osmolar Contrast (ICD-10-PCS; 2017-01-18)
PROC: 027034Z Dilation of Coronary Artery, One Artery with Drug-eluting Intraluminal Device, Percutaneous Approach (ICD-10-PCS; principal; 2017-01-18 13:45)
DX: I21.4 Non-ST elevation (NSTEMI) myocardial infarction (principal); T82.855A Stenosis of coronary artery stent, initial encounter; I25.82 Chronic total occlusion of coronary artery; I48.0 Paroxysmal atrial fibrillation; I25.2 Old myocardial infarction; I25.110 Atherosclerotic heart disease of native coronary artery with unstable angina pectoris; I25.5 Ischemic cardiomyopathy; Z87.891 Personal history of nicotine dependence; E78.2 Mixed hyperlipidemia; I10 Essential (primary) hypertension; Y83.1 Surgical operation with implant of artificial internal device as the cause of abnormal reaction of the patient, or of later complication, without mention of misadventure at the time of the procedure
CPT/HCPCS: 71010; 80048; 80053; 80061; 82550; 83735; 84484; 85002; 85025; 85610; 85730; 92928; 93005; 93459; 96374; 96375; C1760; C1769; C1874; C1887; C1893; G0269; J1644; J2250; J3010; J3246; J7030; Q9967

== ENCOUNTER 2017-04-03 03:52 | Inpatient (IN) | payer OTHER ==
[~2017-04-03] VITALS: Ht 177.8 cm; Wt 88.0 kg
[2017-04-03] VITALS (17 sets, daily range): BP systolic 138–194; BP diastolic 77–111; PULSE 46–65; RESP 16–40; TEMP 97.7–98.7; O2SAT 96–100
[~2017-04-03 03:52] MED LIST changes: -AMIO200 PO; +BRIL90TA PO; +METO100T PO; +RAMI10CA PO
[2017-04-03] MEDS ORDERED: SODIUM CHLOR 0.9% 1000 ML INJ 1,000 ML IV SCH (04:00)
[2017-04-03] MEDS ORDERED: SODIUM CHLORIDE 0.9% FLUSH 10 ML FLUSH IVF PRN ×2 (04:00→05:15)
[2017-04-03] MEDS ORDERED: ASPIRIN 81 MG CHEW TAB PO ONE (04:00)
[2017-04-03] MEDS: NITROGLYCERIN 0.4 MG SL 25 TABS/BTL SL SCH ×3 (04:06→04:26)
[2017-04-03 04:19] LABS: CHLORIDE 110 MEQ/L (98-107); POTASSIUM 4.1 MEQ/L (3.5-5.1); SODIUM (NA) 143 MEQ/L (136-145)
--- NOTE | 2017-04-03 04:19 | PD ---
HPI Chief Complaint: Chest Pain Time Seen by Provider: 03:57 Travel History International Travel<30 days: No Contact w/Intl Traveler<30days: No Traveled to known affect area: No History of Present Illness HPI 66-year-old male with history of CAD hypertension and previous CA with CABG October 2005 and subsequent cardiac catheterization as recently as February 2016 and most recently January 2017 presents with retrosternal chest pain radiating into the neck and jaw described as a dull discomfort currently 2/10 in intensity and at worst 5/10 in intensity since 11 PM Monday evening. Patient states one week ago he had similar symptoms but duration was less and intensity was last period throughout Monday he had on-and-off discomfort and then has had steady discomfort since 11 PM. Patient denies any associated sweats nausea vomiting or shortness of breath. Patient is under the care of Dr. Esteban Ivan in [place] and last 2 cardiac catheterization procedures were done by Dr. Wright here at [facility]. Patient did not take as temperature prior to arrival to the emergency department but did take a dose of Brilinta approximately 2 hours prior to arrival to the emergency department. PFSH Past Medical History Hx Anticoagulant Therapy: Yes (XARELTO) Arthritis: Yes (bilateral knees, bilateral shoulders ) Atrial Fibrillation: Yes Blood Disorders: No Heart Rhythm Problems: Yes (controlled A-fib ) Cancer: No Cardiovascular Problems: Yes (CA, CABG x 3, stents x 4, DVT post knee surgery. ) High Cholesterol: Yes Chest Pain: Yes Coronary Artery Disease: Yes Diabetes: No Diminished Hearing: No Deep Vein Thrombosis: Yes (CLOT POST KNEE SURGERY) Endocrine: No Genitourinary: No Hypertension: Yes Immune Disorder: No Musculoskeletal: Yes (bilateral knee repair, right rotator cuff surgery. ) Neurologic: No Psychiatric: No Reproductive: No Respiratory: No Myocardial Infarction: Yes Thyroid Disease: No Past Surgical History Abdominal Surgery: Yes (Hernia repair) Cardiac Surgery: Yes (CABG X 3) Other Surgery: Yes (INGUINAL HERANIA REPAIR RIGHT) Social History Alcohol Use: No Tobacco Use: Yes (QUIT CIGARS JUL 2016) Substance Use: No Allergies-Medications (Allergen,Severity, Reaction): Coded Allergies: Sulfa (Verified Allergy, Severe, HIVES,ITCHING, 04/03/17) Reported Meds & Prescriptions Reported Meds & Active Scripts Active Metoprolol Tartrate 100 Mg Tab 100 Mg PO BID Reported Biotin 1,000 Mcg Tab 1,000 Mg PO DAILY Vitamin C (Ascorbic Acid) 1,000 Mg Tablet.er 2,000 Mg PO DAILY Vitamin B Complex (B-Complex Vitamins) 1 Tab 1 Tab PO DAILY Lead-3 Fish Oil/Vitamin (Fish Oil-Cholecalciferol) 1,000-1,000 Mg Cap 4 Cap PO DAILY Aspirin 325 Mg Tab 325 Mg PO DAILY Livalo (Pitavastatin) 2 Mg Tab 2 Mg PO DAILY Ramipril 10 Mg Cap 10 Mg PO DAILY Brilinta (Ticagrelor) 90 Mg Tab 90 Mg PO BID Physical Exam Narrative GENERAL: Well-developed well-nourished male in no acute distress no respiratory distress SKIN: Warm and dry. HEAD: Normocephalic. EYES: No scleral icterus. No injection or drainage. NECK: Supple, trachea midline. No JVD or lymphadenopathy. CARDIOVASCULAR: Regular rate and rhythm without murmurs, gallops, or rubs. RESPIRATORY: Breath sounds equal bilaterally. No accessory muscle use. GASTROINTESTINAL: Abdomen soft, non-tender, nondistended. MUSCULOSKELETAL: No cyanosis, or edema. Radial and dorsalis pedis pulses 2+ to palpation BACK: Nontender without obvious deformity. No CVA tenderness. Data Data Last Documented VS Vital Signs Date Time Temp Pulse Resp B/P Pulse Ox O2 Delivery O2 Flow Rate FiO2 04/03/17 04:59 99 Nasal Cannula 2.00 04/03/17 04:59 50 16 146/81 04/03/17 03:53 97.8 Orders Electrocardiogram (04/03/17 03:57) Basic Metabolic Panel (Bmp) (04/03/17 03:57) Ckmb (Isoenzyme) Profile (04/03/17 03:57) Complete Blood Count With Diff (04/03/17 03:57) Magnesium (Mg) (04/03/17 03:57) Prothrombin Time / Inr (Pt) (04/03/17 03:57) Act Partial Throm Time (Ptt) (04/03/17 03:57) Troponin I (04/03/17 03:57) Chest, Single Ap (04/03/17 03:57) Ecg Monitoring (04/03/17 03:57) Bilateral Bp Monitoring (04/03/17 03:57) Iv Access Insert/Monitor (04/03/17 03:57) Oximetry (04/03/17 03:57) Oxygen Administration (04/03/17 03:57) Aspirin Chew (Aspirin Chew) (04/03/17 04:00) Sodium Chloride 0.9% Flush (Ns Flush) (04/03/17 04:00) Nitroglycerin Sl (Nitrostat Sl) (04/03/17 04:00) Sodium Chlor 0.9% 1000 Ml Inj (Ns 1000 M (04/03/17 04:00) CKMB (04/03/17 03:58) CKMB% (04/03/17 03:58) Heparin Infusion FAY.Q1H (04/03/17 04:58) Heparin Inj (Heparin Inj) (04/03/17 05:00) Heparin Inj (Heparin Inj) (04/03/17 11:00) Heparin Inj (Heparin Inj) (04/03/17 11:00) Heparin-D5w Inj (Heparin-D5w Inj) (04/03/17 05:00) Cbc No Diff, Includes Plts (04/06/17 06:00) Act Partial Throm Time (Ptt) (04/03/17 11:58) Occult Blood (Hemoccult) Stool (04/03/17 04:58) Nitroglycerin 2% Oint (Nitroglycerin 2% (04/03/17 05:00) Admit Order (Ed Use Only) (04/03/17 ) ^ Saline Lock (04/03/17 05:06) Resp Oxygen Nii C Titrat 1-4 L (04/03/17 ) Notify Dr: Other (04/03/17 05:06) Sodium Chloride 0.9% Flush (Ns Flush) (04/03/17 09:00) Sodium Chloride 0.9% Flush (Ns Flush) (04/03/17 05:15) Consult Cardiology (04/03/17 05:06) Admit To Inpatient (04/03/17 ) Vital Signs (Adult) Q4H (04/03/17 05:05) Activity Oob Ad April (04/03/17 05:05) Dog Warden / Telemetry .CONTINUOUS (04/03/17 05:05) Intake + Output FAY.QSHIFT (04/03/17 05:05) Diet Heart Healthy (04/03/17 Breakfast) Sodium Chlor 0.9% 1000 Ml Inj (Ns 1000 M (04/03/17 05:05) Sodium Chloride 0.9% Flush (Ns Flush) (04/03/17 05:15) Sodium Chloride 0.9% Flush (Ns Flush) (04/03/17 09:00) Ondansetron Inj (Zofran Inj) (04/03/17 05:15) Comprehensive Metabolic Panel (04/04/17 06:00) Complete Blood Count With Diff (04/04/17 06:00) Troponin I (04/03/17 10:00) Troponin I (04/03/17 16:00) Acetaminophen (Tylenol) (04/03/17 05:15) Acetamin-Hydrocod 325-5 Mg ([place] 5-325 (04/03/17 05:15) Morphine Inj (Morphine Inj) (04/03/17 05:15) Docusate Sodium-Senna (Roseann-Colace) (04/03/17 09:00) Magnesium Hydroxide Liq (Milk Of Magnesi (04/03/17 05:15) Sennosides (Senokot) (04/03/17 05:15) Bisacodyl Supp (Dulcolax Supp) (04/03/17 05:15) Lactulose Liq (Lactulose Liq) (04/03/17 05:15) Inpatient Certification (04/03/17 ) Aspirin (Aspirin) (04/03/17 09:00) Metoprolol Tartrate (Lopressor) (04/03/17 09:00) Pravastatin (Pravachol) (04/03/17 09:00) Ramipril (Altace) (04/03/17 09:00) Metoprolol Tartrate (Lopressor) (04/03/17 09:00) Labs Laboratory Tests Test 04/03/17 03:58 White Blood Count 6.8 TH/MM3 Red Blood Count 4.61 MIL/MM3 Hemoglobin 12.8 GM/DL Hematocrit 37.6 % Mean Corpuscular Volume 81.5 FL Mean Corpuscular Hemoglobin 27.8 PG Mean Corpuscular Hemoglobin 34.2 % Concent Red Cell Distribution Width 14.2 % Platelet Count 141 TH/MM3 Mean Platelet Volume 9.3 FL Neutrophils (%) (Auto) 63.7 % Lymphocytes (%) (Auto) 24.6 % Monocytes (%) (Auto) 5.9 % Eosinophils (%) (Auto) 5.3 % Basophils (%) (Auto) 0.5 % Neutrophils # (Auto) 4.3 TH/MM3 Lymphocytes # (Auto) 1.7 TH/MM3 Monocytes # (Auto) 0.4 TH/MM3 Eosinophils # (Auto) 0.4 TH/MM3 Basophils # (Auto) 0.0 TH/MM3 CBC Comment DIFF FINAL Differential Comment Prothrombin Time 9.9 SEC Prothromb Time International 0.9 RATIO Ratio Activated Partial 23.1 SEC Thromboplast Time Sodium Level 143 MEQ/L Potassium Level 4.1 MEQ/L Chloride Level 110 MEQ/L Carbon Dioxide Level 24.5 MEQ/L Anion Gap 9 MEQ/L Blood Urea Nitrogen 18 MG/DL Creatinine 1.30 MG/DL Estimat Glomerular Filtration 56 ML/MIN Rate Random Glucose 96 MG/DL Calcium Level 8.7 MG/DL Magnesium Level 2.4 MG/DL Total Creatine Kinase 107 U/L Creatine Kinase MB 1.4 NG/ML Troponin I 0.60 NG/ML MDM Medical Decision Making Medical Screen Exam Complete: Yes Emergency Medical Condition: Yes Medical Record Reviewed: Yes Interpretation(s) EKG sinus bradycardia rate 58 first-degree AV block no acute ST elevation or acute injury pattern change noted age-indeterminate anterior infarct troponin I: 0.6, elevated CBC & BMP Diagram 04/03/17 03:58 Vital Signs Date Time Temp Pulse Resp B/P Pulse Ox O2 Delivery O2 Flow Rate FiO2 04/03/17 04:59 50 16 146/81 99 Nasal Cannula 2 04/03/17 04:56 99 Nasal Cannula 04/03/17 04:13 54 148/80 140/81 04/03/17 04:05 65 194/103 Nasal Cannula 2 181/111 04/03/17 04:05 55 181/111 99 Nasal Cannula 2 04/03/17 03:55 63 18 192/107 98 Nasal Cannula 2 Differential Diagnosis Chest pain, ACS, myocardial infarction, aortic dissection, PE, esophageal spasm Narrative Course Patient placed on school lunch monitor EKG performed showing sinus bradycardia rate of 58 with first-degree AV block no acute ST elevation or injury pattern noted however age-indeterminate anterior infarct changes and noted; patient administered aspirin 162 mg by mouth and sublingual nitroglycerin ordered; specimens collected and sent for resulting. After one sublingual nitroglycerin 0.4 mg patient is pain-free 0/10 intensity discomfort Review of medical records indicates patient underwent left heart cardiac catheterization which identified severe 3 vessel [place] coronary artery disease patent left internal mammary artery to the LAD and patent right graft to the diagonal and obtuse marginal low normal left ventricular systolic function with EF of 50% and primary stenting of [place] proximal right coronary artery after receipt of Aggrastat heparinization a 3.5 x 12 mm resolute stent was deployed with a prolonged good results and reduction of lesion to roughly 0 % residual (which had been 75-80% restenosis) without evidence of dissection or distal embolization. After SL NTG 0.4mg x 1 BP decreased to 152/88; pain 0/10. Patient remains chest pain-free at 5 AM however first troponin I is elevated at 0.6 concerning for high-risk CA versus non-STEMI patient will be started on heparin infusion, Nitropaste 1 inch to the chest wall, call placed to Dr. Wright or coverage Patient's case discussed with on-call lap machine tender Dr. Moss who agrees patient needs to be transferred from [facility] to [facility] admitted to [facility] to have his service with cardiology consult this morning agrees with heparin infusion and ongoing nitroglycerin and recommends patient be continued on his metoprolol. Critical Care Narrative Aggregate critical care time was 35 minutes. Time to perform other separately billable procedures was not included in the critical care time. My time did not include minutes spent treating any other patients simultaneously or on activities that did not directly contribute to the patient's treatment. The services I provided to this patient were to treat and/or prevent clinically significant deterioration that could result in: Arrhythmia, cardiogenic shock, I provided critical care services requiring my management, as noted below: Chart data review, documentation time, medication orders and management, vital sign assessments/reviewing monitor data, ordering and reviewing lab tests, ordering and interpreting/reviewing x-rays and diagnostic studies, care of the patient and discussion of the patient with the admitting physicians. Physician Communication Physician Communication discussed with Dr Moss; discussed with [facility] Diagnosis Primary Impression: NSTEMI (non-ST elevated myocardial infarction) Additional Impression: Chest pain Qualified Code: R07.2 - Precordial pain Admitting Information Admitting Physician Requests: Admit Vicky Killian MD Apr 03, 2017 04:18
[2017-04-03 04:22] LABS: ANION GAP 9 MEQ/L (5-15); BICARBONATE 24.5 MEQ/L (21.0-32.0); BLOOD UREA NITROGEN 18 MG/DL (7-18); MAGNESIUM 2.4 MG/DL (1.5-2.5)
[2017-04-03 04:23] LABS: APTT (PATIENT) 23.1 SEC (24.3-30.1); INTERNATIONAL NORMALIZED RATIO 0.9 RATIO; PROTHROMBIN TIME - PATIENT 9.9 SEC (9.8-11.6)
[2017-04-03] MEDS ORDERED: ASPI325T PO (04:23)
[2017-04-03 04:26] LABS: GLOMERULAR FILTRATION RATE 56 ML/MIN (>89)
[2017-04-03] MEDS ORDERED: OMEGCAP PO (04:26)
[2017-04-03] MEDS ORDERED: VITATAB11 PO (04:26)
[2017-04-03] MEDS ORDERED: ASCO100016 PO (04:26)
[2017-04-03] MEDS ORDERED: BIOT1000 PO (04:26)
[2017-04-03 04:29] LABS: CREATINE KINASE 107 U/L (39-308)
[2017-04-03 04:34] LABS: AUTOMATED NEUTROPHIL # 4.3 TH/MM3 (1.8-7.7); BASOPHIL % 0.5 % (0.0-2.0); EOSINOPHIL # 0.4 TH/MM3 (0-0.4); EOSINOPHIL % 5.3 % (0.0-4.0); HEMATOCRIT 37.6 % (39.0-51.0); HEMO FLAGS DIFF FINAL; LYMPH % 24.6 % (9.0-44.0); LYMPHOCYTE # 1.7 TH/MM3 (1.0-4.8); MEAN CELL VOLUME 81.5 FL (80.0-100.0); MEAN CORPUSCULAR HEMOGLOBIN 27.8 PG (27.0-34.0); MEAN CORPUSCULAR HGB CONC 34.2 % (32.0-36.0); MONO % 5.9 % (0.0-8.0); NEUT % 63.7 % (16.0-70.0); PLATELET COUNT 141 TH/MM3 (150-450); RED BLOOD COUNT 4.61 MIL/MM3 (4.50-5.90); RED CELL DISTRIBUTION WIDTH 14.2 % (11.6-17.2); WHITE BLOOD COUNT 6.8 TH/MM3 (4.0-11.0)
[2017-04-03 04:41] LABS: CKMB 1.4 NG/ML (0.5-3.6)
[2017-04-03] MEDS ORDERED: NITROGLYCERIN 2% OINT 1 GM PACKET TOPICAL ONE (05:00)
[2017-04-03] MEDS ORDERED: HEPARIN SODIUM - IV 10,000 UNITS/10 ML VIAL IV ONE (05:00)
[2017-04-03] MEDS: SODIUM CHLOR 0.9% 1000 ML INJ 1,000 ML IV SCH ×2 (05:05→19:49)
--- NOTE | 2017-04-03 05:12 | RADHPO ---
EXAM DATE/TIME: 04/03/2017 04:12 [facility] COMPARISON: CHEST SINGLE AP, February 22, 2016, 11:11. CHEST SINGLE AP, January 17, 2017, 19:27. INDICATIONS : Chest pressure and pain since yesterday. MEDICAL HISTORY : Hypertension. SURGICAL HISTORY : CABG. Coronary artery stent. ENCOUNTER: Initial ACUITY: 1 day PAIN SCORE: 2/10 LOCATION: Bilateral chest FINDINGS: A single view of the chest demonstrates the lungs to be symmetrically aerated without evidence of mas s, infiltrate or effusion. The cardiomediastinal contours are unremarkable. Osseous structures are intact. Median sternotomy changes are again noted. Chronic pleural calcification again seen laterally on the right. CONCLUSION: No evidence of acute cardiopulmonary disease. Ari Gonzales MD on April 03, 2017 at 5:10 Board Certified Radiologist. This report was verified electronically.
[2017-04-03] MEDS ORDERED: SENNOSIDES 8.6 MG TAB PO PRN (05:15)
[2017-04-03] MEDS ORDERED: SODIUM CHLORIDE 0.9% FLUSH 10 ML FLUSH IV FLUSH PRN (05:15)
[2017-04-03] MEDS ORDERED: MORPHINE SULFATE 4 MG/ML INJ IV PRN (05:15)
[2017-04-03] MEDS ORDERED: MAGNESIUM HYDROXIDE SUSP 30 ML CUP PO PRN (05:15)
[2017-04-03] MEDS ORDERED: ACETAMINOPHEN/HYDROcodone 325 MG/5 MG TAB PO PRN (05:15)
[2017-04-03] MEDS ORDERED: LACTULOSE SYRUP 20 GM/30 ML CUP PO PRN (05:15)
[2017-04-03] MEDS ORDERED: ACETAMINOPHEN 325 MG TAB PO PRN (05:15)
[2017-04-03] MEDS ORDERED: ONDANSETRON HCL 4 MG/2 ML VIAL IVP PRN (05:15)
[2017-04-03] MEDS ORDERED: BISACODYL 10 MG SUPP RECTAL PRN (05:15)
[2017-04-03] MEDS: HEPARIN-D5W INJ 250 ML IV SCH ×2 (05:25→19:50)
--- NOTE | 2017-04-03 08:35 | HHI.HP ---
[facility] Primary Care Physician Mariia Chawla MD Admission Diagnosis chest pain, nstemi Diagnoses: (1) Chest pain Diagnosis: Principal Chief Complaint: chest pain Travel History International Travel<30 Days: No Contact w/Intl Traveler <30 Da: No Traveled to Known Affected Are: No History of Present Illness patient is a 66 y/o male with history of CAD- s/p CABG and stent, presented to ER with chest pain. it was described as chest ' pressure' with some radiation to the jaws. pain started last night when he was going to bed. pain was not associated with nausea, vomiting, sob or diaphoresis. he was pain free at the time of my evaluation. his last cardiac cath was two months ago. Review of Systems Constitutional: DENIES: Fever, Weight loss, Chills, Night Sweats Eyes: DENIES: Blurred vision, Diplopia, Vision loss, Double Vision Ears, nose, mouth, throat: DENIES: Tinnitus, Vertigo, Throat pain, Epistaxis Respiratory: DENIES: Apneas, Cough, Snoring, Wheezing, Hemoptysis, Sputum production, Shortness of breath Cardiovascular: COMPLAINS OF: Chest pain, DENIES: Palpitations, Syncope, Dyspnea on Exertion, PND, Lower Extremity Edema, Orthopnea, Claudication Gastrointestinal: DENIES: Abdominal pain, Black stools, Bloody stools, Constipation, Diarrhea, Nausea, Vomiting, Difficulty Swallowing, Anorexia Genitourinary: DENIES: Urinary frequency, Urgency, Hematuria, Dysuria Musculoskeletal: DENIES: Joint pain, Muscle aches, Stiffness, Joint Swelling Integumentary: DENIES: Rash Neurologic: DENIES: Abnormal gait, Headache, Localized weakness, Paresthesias, Seizures, Speech Problems, Tremor, Poor Balance Psychiatric: DENIES: Anxiety, Confusion, Mood changes, Depression, Hallucinations, Agitation, Suicidal Ideation, Homicidal Ideation, Delusions Past Family Social History Past Medical History CAD hypertension Past Surgical History CABG cardiac stent placement Reported Medications Biotin 1,000 Mcg Tab 1,000 Mg PO DAILY Vitamin C (Ascorbic Acid) 1,000 Mg Tablet.er 2,000 Mg PO DAILY Vitamin B Complex (B-Complex Vitamins) 1 Tab 1 Tab PO DAILY [place]-3 Fish Oil/Vitamin (Fish Oil-Cholecalciferol) 1,000-1,000 Mg Cap 4 Cap PO DAILY Aspirin 325 Mg Tab 325 Mg PO DAILY Livalo (Pitavastatin) 2 Mg Tab 2 Mg PO DAILY Ramipril 10 Mg Cap 10 Mg PO DAILY Brilinta (Ticagrelor) 90 Mg Tab 90 Mg PO BID Allergies: Coded Allergies: Sulfa (Verified Allergy, Severe, HIVES,ITCHING, 04/03/17) Active Ordered Medications Current Medications Aspirin (Aspirin Chew) 162 mg ONCE ONCE PO Last administered on 04/03/17 04: 04; Start 04/03/17 at 04:00; Stop 04/03/17 at 04:01; Status DC Sodium Chloride (NS Flush) 2 ml UNSCH PRN IVF FLUSH AFTER USING IV ACCESS; Start 04/03/17 at 04:00; Stop 04/03/17 at 05:27; Status DC Nitroglycerin 0.4 mg 0.4 mg Q5M SL Last administered on 04/03/17 04:06; Start 04/03/17 at 04:00; Stop 04/03/17 at 04:11; Status DC Sodium Chloride (NS 1000 ml Inj) 1,000 ml @ 100 mls/hr Q10H IV Last administered on 04/03/17 04:06; Start 04/03/17 at 04:00; Stop 04/03/17 at 05:28 ; Status DC Heparin Sodium (Porcine) (Heparin Inj) 4,000 units ONCE ONCE IV Last administered on 04/03/17 05:26; Start 04/03/17 at 05:00; Stop 04/03/17 at 05:03 ; Status DC Heparin Sodium (Porcine) (Heparin Inj) 5,000 units UNSCH PRN IV APTT LESS THAN 25; Start 04/03/17 at 11:00 Heparin Sodium (Porcine) 2500 units 2,500 units UNSCH PRN IV APTT 25 TO 39; Start 04/03/17 at 11:00 Heparin Sodium/ Dextrose (Heparin-D5W Inj) 250 ml @ 0 mls/hr TITRATE IV Last administered on 04/03/17 05:25; Start 04/03/17 at 05:00 Nitroglycerin (Nitroglycerin 2% Oint) 1 inch ONCE ONCE TOPICAL Last administered on 04/03/17t 05:27; Start 04/03/17 at 05:00; Stop 04/03/17 at 05:03 ; Status DC Sodium Chloride (NS Flush) 2 ml BID IV FLUSH ; Start 04/03/17 at 09:00; Stop at 09:00; Status DC Sodium Chloride 2 ml 2 ml UNSCH PRN IVF FLUSH AFTER USING IV ACCESS; Start at 05:15; Stop 04/03/17 at 05:27; Status DC Sodium Chloride (NS 1000 ml Inj) 1,000 ml @ 100 mls/hr Q10H IV ; Start at 05:05 Sodium Chloride (NS Flush) 2 ml UNSCH PRN IV FLUSH FLUSH AFTER USING IV ACCESS ; Start 04/03/17 at 05:15; Stop 04/03/17 at 05:27; Status DC Sodium Chloride (NS Flush) 2 ml BID IV FLUSH ; Start 04/03/17 at 09:00 Ondansetron HCl (Zofran Inj) 4 mg Q6H PRN IVP NAUSEA OR VOMITING; Start at 05:15 Acetaminophen (Tylenol) 650 mg Q6H PRN PO FEVER/PAIN SCALE 1 TO 2; Start at 05:15 Acetaminophen/ Hydrocodone Bitart ([place] 5-325 Mg) 1 tab Q4H PRN PO PAIN SCALE 3 TO 5; Start 04/03/17 at 05:15 Morphine Sulfate (Morphine Inj) 2 mg Q3H PRN IV Pain 6-10; Start 04/03/17 at 05 :15 Senna/Docusate Sodium (Roseann-Colace) 1 tab BID PO ; Start 04/03/17 at 09:00 Magnesium Hydroxide (Milk Of Magnesia Liq) 30 ml Q12H PRN PO MILD - MODERATE CONSTIPATION; Start 04/03/17 at 05:15 Sennosides (Senokot) 17.2 mg Q12H PRN PO MODERATE - SEVERE CONSTIPATION; Start 04/03/17 at 05:15 Bisacodyl (Dulcolax Supp) 10 mg DAILY PRN RECTAL SEVERE CONSITIPATION; Start at 05:15 Lactulose (Lactulose Liq) 30 ml DAILY PRN PO SEVERE CONSITIPATION; Start at 05:15 Aspirin (Aspirin) 325 mg DAILY PO ; Start 04/03/17 at 09:00; Stop 04/03/17 at 09 :00; Status DC Metoprolol Tartrate (Lopressor) 100 mg BID PO ; Start 04/03/17 at 09:00; Stop at 09:00; Status DC Pravastatin Sodium (Pravachol) 40 mg DAILY PO ; Start 04/03/17 at 09:00 Ramipril (Altace) 10 mg DAILY PO ; Start 04/03/17 at 09:00 Metoprolol Tartrate (Lopressor) 50 mg BID PO ; Start 04/03/17 at 09:00 Family History not significant for CAD. Social History no smoking or drinking. Physical Exam Vital Signs Vital Signs Date Time Temp Pulse Resp B/P Pulse Ox O2 Delivery O2 Flow Rate FiO2 04/03/17 06:15 46 152/81 98 Nasal Cannula 2 04/03/17 05:45 46 16 138/84 98 Nasal Cannula 2 04/03/17 04:59 99 Nasal Cannula 2.00 04/03/17 04:59 50 16 146/81 99 Nasal Cannula 2 04/03/17 04:56 99 Nasal Cannula 04/03/17 04:13 54 148/80 140/81 04/03/17 04:05 65 194/103 Nasal Cannula 2 181/111 04/03/17 04:05 55 181/111 99 Nasal Cannula 2 04/03/17 03:55 63 18 192/107 98 Nasal Cannula 2 04/03/17 03:53 97.8 Physical Exam GENERAL: This is a well-nourished, well-developed patient, in no apparent distress. SKIN: No rashes, ecchymoses or lesions. Cool and dry. HEAD: Atraumatic. Normocephalic. No temporal or scalp tenderness. EYES: Pupils equal round and reactive. Extraocular motions intact. No scleral icterus. No injection or drainage. ENT: Nose without bleeding, purulent drainage or septal hematoma. Throat without erythema, tonsillar hypertrophy or exudate. Uvula midline. Airway patent. NECK: Trachea midline. No JVD or lymphadenopathy. Supple, nontender, no meningeal signs. CARDIOVASCULAR: Regular rate and rhythm without murmurs, gallops, or rubs. RESPIRATORY: Clear to auscultation. Breath sounds equal bilaterally. No wheezes , rales, or rhonchi. GASTROINTESTINAL: Abdomen soft, non-tender, nondistended. No hepato-splenomegaly , or palpable masses. No guarding. MUSCULOSKELETAL: Extremities without clubbing, cyanosis, or edema. No joint tenderness, effusion, or edema noted. No calf tenderness. Negative Homans sign bilaterally. NEUROLOGICAL: Awake and alert. Cranial nerves II through XII intact. Motor and sensory grossly within normal limits. Five out of 5 muscle strength in all muscle groups. Normal speech. Laboratory Laboratory Tests Test 04/03/17 03:58 White Blood Count 6.8 Red Blood Count 4.61 Hemoglobin 12.8 Hematocrit 37.6 Mean Corpuscular Volume 81.5 Mean Corpuscular Hemoglobin 27.8 Mean Corpuscular Hemoglobin 34.2 Concent Red Cell Distribution Width 14.2 Platelet Count 141 Mean Platelet Volume 9.3 Neutrophils (%) (Auto) 63.7 Lymphocytes (%) (Auto) 24.6 Monocytes (%) (Auto) 5.9 Eosinophils (%) (Auto) 5.3 Basophils (%) (Auto) 0.5 Neutrophils # (Auto) 4.3 Lymphocytes # (Auto) 1.7 Monocytes # (Auto) 0.4 Eosinophils # (Auto) 0.4 Basophils # (Auto) 0.0 CBC Comment DIFF FINAL Differential Comment Prothrombin Time 9.9 Prothromb Time International 0.9 Ratio Activated Partial 23.1 Thromboplast Time Sodium Level 143 Potassium Level 4.1 Chloride Level 110 Carbon Dioxide Level 24.5 Anion Gap 9 Blood Urea Nitrogen 18 Creatinine 1.30 Estimat Glomerular Filtration 56 Rate Random Glucose 96 Calcium Level 8.7 Magnesium Level 2.4 Total Creatine Kinase 107 Creatine Kinase MB 1.4 Troponin I 0.60 Result Diagram: 04/03/1735704/03/17357 Imaging Last Impressions Chest X-Ray 04/03/17356 Signed Impressions: Service Date/Time: Monday, April 03, 2017 04:12 - CONCLUSION: No evidence of acute cardiopulmonary disease. Ari Gonzales MD EKG; sinus bradycardia with first-degree AV block. Assessment and Plan Assessment and Plan A/P - chest pain with history of CAD- s/p CABG and stent placement started on heparin drip and received a dose of aspirin earlier- continue with BB and statin- will trend the cardiac enzymes and awaiting cardiology evaluation. -hypertension; on ramipril and metoprolol- will monitor and adjust the regimen as needed. -DVT prophylaxis ; on heparin drip Discussed Condition With the patient and RN. Physician Certification 2 Midnight Certification Type: Admission for Inpatient Services Order for Inpatient Services The services are ordered in accordance with Medicare regulations or non- Medicare payer requirements, as applicable. In the case of services not specified as inpatient-only, they are appropriately provided as inpatient services in accordance with the 2-midnight benchmark. Estimated LOS (days): 2 days is the estimated time the patient will need to remain in the hospital, assuming treatment plan goals are met and no additional complications. Post-Hospital Plan: Home Problem Qualifiers (1) Chest pain: Qualified Code: R07.2 - Precordial pain Esther Cortez MD Apr 03, 2017 08:35
[2017-04-03] MEDS: METOPROLOL TARTRATE 50 MG TAB PO SCH ×2 (09:00→19:48)
[2017-04-03] MEDS: SODIUM CHLORIDE 0.9% FLUSH 10 ML FLUSH IV FLUSH SCH ×2 (09:00→19:48)
[2017-04-03] MEDS: RAMIPRIL 5 MG CAP PO SCH (09:00)
[2017-04-03] MEDS ORDERED: SODIUM CHLORIDE 0.9% FLUSH 10 ML FLUSH IV FLUSH SCH (09:00)
[2017-04-03] MEDS ORDERED: METOPROLOL TARTRATE 100 MG TAB PO SCH (09:00)
[2017-04-03] MEDS: DOCUSATE SODIUM 50 MG/SENNA 8.6 MG TAB PO SCH ×3 (09:00→19:54)
[2017-04-03] MEDS ORDERED: ASPIRIN 325 MG TAB PO SCH (09:00)
[2017-04-03] MEDS: PRAVASTATIN SOD 40 MG TAB PO SCH (09:00)
[2017-04-03] MEDS ORDERED: HEPARIN SODIUM - IV 10,000 UNITS/10 ML VIAL IV PRN ×2 (11:00)
[2017-04-03 12:58] LABS: APTT (PATIENT) 49.7 SEC (24.3-30.1)
[2017-04-03] MEDS ORDERED: DIAZEPAM 10 MG TAB PO SCH (15:15)
--- NOTE | 2017-04-03 15:25 | MB ---
cc: KIRK LOPEZ M.D. DATE OF CONSULTATION: 04/03/2017 REASON FOR CONSULTATION Chest pain, abnormal troponin levels. HISTORY OF PRESENT ILLNESS The patient is a 66-year-old white male with a history of coronary artery disease, hypertension, hyperlipidemia, paroxysmal atrial fibrillation, ischemic cardiomyopathy, who was doing fairly well up until about a week ago when he began to experience intermittent episodes of bilateral neck discomfort associated with slight substernal chest pressure. When it started a week ago he was walking at work and it lasted a few minutes without associated shortness of breath, nausea or diaphoresis. Last night he awoke in the middle of the night and upon returning to his bed he once again experienced the bilateral neck discomfort as well as substernal chest pressure, again lasting a few minutes. He denies pleurisy, dizziness, syncope, near-syncope, palpitations, pedal edema, leg pain. The patient gets "heartburn" on a daily basis for which he takes Tums with prompt relief. PAST MEDICAL HISTORY 1. Coronary artery disease status post bypass surgery 2005, myocardial infarction and percutaneous coronary intervention 2010, stent of the distal right coronary artery with a 3.0 mm Resolute and stent of the proximal to mid right coronary artery with a 3.5 mm Resolute, angioplasty of the posterior descending artery 02/23/2016. His last heart catheterization was 01/18/2017 showing patent Y-graft to the diagonal and obtuse marginal, patent left internal mammary artery to the LAD, 80% re-stenosis of the proximal edge of the proximal right coronary stent, which was re-stented with a 3.5 mm Resolute. 2. Hypertension. 3. Hyperlipidemia. 4. Paroxysmal atrial fibrillation. 5. Ischemic cardiomyopathy with ejection fraction of 35-40% by echo 02/24/2016, although his ejection fraction had improved to 50% by his cardiac catheterization 01/18/2017. MEDICATIONS Cardiac medications: 1. Aspirin 325 mg q. daily. 2. Livalo 2 mg q. daily. 3. Brilinta 90 mg b.i.d. 4. Ramipril 10 mg q. daily. 5. Metoprolol 100 mg b.i.d. ALLERGIES SULFA. FAMILY HISTORY Noncontributory. SOCIAL HISTORY The patient quit smoking in 2015. He denies alcohol abuse. REVIEW OF SYSTEMS As in the history of present illness, otherwise negative or noncontributory. He also denies headache, abdominal pain, melena, bright red blood per rectum, fevers, cough, pleurisy, hemoptysis. PHYSICAL EXAMINATION VITAL SIGNS: On physical examination his blood pressure is 145/77 with a pulse of 53, respirations 20. GENERAL: In general he is a well-developed, well-nourished white male in no acute distress. HEENT/NECK: Jugular venous pressure is normal. Carotid pulses are 2+ bilaterally and without bruits. CHEST: Examination of the chest reveals clear lung riddle. CARDIAC: On cardiac examination he has a regular rhythm and rate without S3, S4, or murmur. ABDOMEN: On abdominal examination he has a soft, nontender abdomen. Bowel sounds are present. There is no definite hepatosplenomegaly. EXTREMITIES: Examination of the extremities reveals no clubbing, cyanosis or edema. Peripheral pulses are normal throughout. LABORATORY DATA Laboratory data includes potassium 4.1, BUN 18, creatinine 1.30, troponin 0.63, hemoglobin 12.8, WBC 6.8, platelets 141. IMAGING DATA Chest x-ray shows no acute disease. EKG DATA EKG shows sinus rhythm, possible inferior infarct age undetermined, borderline poor R-wave progression, nonspecific ST abnormalities. IMPRESSION Abnormal troponin levels, possible recurrent angina in this 66-year-old white male with a history of coronary artery disease status post bypass surgery in 2005, status post a number of percutaneous coronary interventions on the right coronary artery, the last time about 2 months ago, history of paroxysmal atrial fibrillation, hypertension, hyperlipidemia, mild ischemic cardiomyopathy. No definite acute ST-segment or T-wave changes are seen on EKG. His CK level is negative for myocardial infarction. Overall it would be unlikely that he has restenosed his most recently placed right coronary stent. The patient reports compliance with his medications. Clinically there is no definite evidence for pulmonary embolism or congestive heart failure. RECOMMENDATIONS 1. In light of his abnormal troponin levels and his recent symptomatology, I have overall recommended repeat cardiac catheterization tomorrow. 2. Continue his usual home cardiac medications. MD ADRIANNA Schreiber/TUSHAR /3:04 PM /3:21 PM [facility]ENTER[facility]
--- NOTE | 2017-04-03 15:56 | EKG ---
Date Performed: 04/03/2017 Time Performed: 03:58:11 PTAGE: 66 years EKG: SINUS BRADYCARDIA WITH FIRST DEGREE AV BLOCK POSSIBLE ANTERIOR MYOCARDIAL INFARCTION When c ompared to previous tracing, sinus rate is slower. ABNORMAL ECG PREVIOUS TRACING : 01/17/2017 18.51 DOCTOR: Ramakrishna Norman Interpretating Date/Time 04/03/2017 15:55:16
[2017-04-03] MEDS ORDERED: diphenhydrAMINE HCL 50 MG CAP PO SCH (16:00)
[2017-04-03] MEDS ORDERED: CHLORHEXIDINE GLUCONATE 2 % 1 PACK (2 CLOTHS)(extra cloths) TOPICAL PRN (18:15)
[2017-04-03] MEDS ORDERED: CALCIUM CARBONATE 500 MG CHEWABLE TAB CHEW PRN (22:00)
[2017-04-04] VITALS (24 sets, daily range): BP systolic 115–190; BP diastolic 57–100; PULSE 49–68; RESP 18–41; TEMP 97.5–98.4; O2SAT 92–98
[2017-04-04] MEDS: SODIUM CHLOR 0.9% 1000 ML INJ 1,000 ML IV SCH ×2 (01:05→01:06)
[2017-04-04] MEDS: CHLORHEXIDINE GLUCONATE 2 % 1 PACK (2 CLOTHS)(taper/protocol) TOPICAL SCH (04:00)
[2017-04-04 05:43] LABS: AUTOMATED NEUTROPHIL # 4.1 TH/MM3 (1.8-7.7); BASOPHIL % 0.4 % (0.0-2.0); EOSINOPHIL # 0.3 TH/MM3 (0-0.4); EOSINOPHIL % 4.7 % (0.0-4.0); HEMATOCRIT 36.2 % (39.0-51.0); HEMO FLAGS DIFF FINAL; LYMPH % 25.7 % (9.0-44.0); LYMPHOCYTE # 1.7 TH/MM3 (1.0-4.8); MEAN CORPUSCULAR HEMOGLOBIN 26.7 PG (27.0-34.0); MEAN CORPUSCULAR HGB CONC 32.5 % (32.0-36.0); MONO % 6.9 % (0.0-8.0); NEUT % 62.3 % (16.0-70.0); PLATELET COUNT 123 TH/MM3 (150-450); RED BLOOD COUNT 4.42 MIL/MM3 (4.50-5.90); RED CELL DISTRIBUTION WIDTH 14.9 % (11.6-17.2); WHITE BLOOD COUNT 6.6 TH/MM3 (4.0-11.0)
[2017-04-04 06:09] LABS: ALT (GPT) 27 U/L (12-78); ANION GAP 8 MEQ/L (5-15); AST (GOT) 20 U/L (15-37); BLOOD UREA NITROGEN 14 MG/DL (7-18); CHLORIDE 111 MEQ/L (98-107); GLOMERULAR FILTRATION RATE 70 ML/MIN (>89); SODIUM (NA) 145 MEQ/L (136-145)
[2017-04-04 06:11] LABS: ALKALINE PHOSPHATASE 53 U/L (45-117); TOTAL BILIRUBIN ADULT 0.4 MG/DL (0.2-1.0)
[2017-04-04 07:57] LABS: APTT (PATIENT) 53.7 SEC (24.3-30.1)
--- NOTE | 2017-04-04 08:16 | HHI.PR ---
Subjective Remarks resting comfortably with no distress. no chest pain or sob. no new complaints over night. Objective Vitals Vital Signs Date Time Temp Pulse Resp B/P Pulse Ox O2 Delivery O2 Flow Rate FiO2 04/04/17 06:00 67 04/04/17 04:00 98.1 55 20 170/91 96 04/04/17 04:00 68 04/04/17 02:00 49 04/04/17 00:00 97.9 53 18 145/69 98 04/04/17 00:00 53 04/03/17 22:00 56 04/03/17 20:00 97.7 58 34 98 04/03/17 20:00 55 04/03/17 19:08 98 Nasal Cannula 2.00 04/03/17 10:01 53 21 145/77 99 04/03/17 10:00 51 21 100 04/03/17 09:30 53 25 166/77 99 04/03/17 09:01 49 40 144/82 98 04/03/17 09:00 49 33 96 04/03/17 08:30 98.7 52 35 154/86 99 I/O 04/03/17 04/03/17 04/03/17 04/04/17 04/04/17 04/04/17 07:00 15:00 23:00 07:00 15:00 23:00 Intake Total 1200 ml 2136 ml 829 ml Output Total 150 ml 700 ml 700 ml 1100 ml Balance -150 ml 500 ml 1436 ml -271 ml Intake Oral 750 ml 720 ml IV Total 1416 ml 829 ml TPN/PPN 450 ml Output Urine Total 150 ml 700 ml 700 ml 1100 ml # Voids 1 3 # Bowel Movements 1 1 Result Diagram: 04/04/17 0512 04/04/17 0512 Imaging Last Impressions Chest X-Ray 04/03/17 0357 Signed Impressions: Service Date/Time: Monday, April 03, 2017 04:12 - CONCLUSION: No evidence of acute cardiopulmonary disease. Ari Gonzales MD Objective Remarks GENERAL: This is a well-nourished, well-developed patient, in no apparent distress. CARDIOVASCULAR: Regular rate and regular rhythm without murmurs, gallops, or rubs. RESPIRATORY: Clear to auscultation. Breath sounds equal bilaterally. No wheezes , rales, or rhonchi. GASTROINTESTINAL: Abdomen soft, non-tender, nondistended. Normal, active bowel sounds MUSCULOSKELETAL: Extremities without clubbing, cyanosis, or edema. NEURO: Alert & Oriented x4 to person, place, time, situation. Moves all ext x4 Medications and IVs Current Medications Aspirin (Aspirin Chew) 162 mg ONCE ONCE PO Last administered on 04/03/17 04: 04; Start 04/03/17 at 04:00; Stop 04/03/17 at 04:01; Status DC Sodium Chloride (NS Flush) 2 ml UNSCH PRN IVF FLUSH AFTER USING IV ACCESS; Start 04/03/17 at 04:00; Stop 04/03/17 at 05:27; Status DC Nitroglycerin 0.4 mg 0.4 mg Q5M SL Last administered on 04/03/17 04:06; Start 04/03/17 at 04:00; Stop 04/03/17 at 04:11; Status DC Sodium Chloride (NS 1000 ml Inj) 1,000 ml @ 100 mls/hr Q10H IV Last administered on 04/03/17 04:06; Start 04/03/17 at 04:00; Stop 04/03/17 at 05:28 ; Status DC Heparin Sodium (Porcine) (Heparin Inj) 4,000 units ONCE ONCE IV Last administered on 04/03/17 05:26; Start 04/03/17 at 05:00; Stop 04/03/17 at 05:03 ; Status DC Heparin Sodium (Porcine) (Heparin Inj) 5,000 units UNSCH PRN IV APTT LESS THAN 25; Start 04/03/17 at 11:00 Heparin Sodium (Porcine) 2500 units 2,500 units UNSCH PRN IV APTT 25 TO 39; Start 04/03/17 at 11:00 Heparin Sodium/ Dextrose (Heparin-D5W Inj) 250 ml @ 0 mls/hr TITRATE IV Last administered on 04/03/17 19:50; Start 04/03/17 at 05:00 Nitroglycerin (Nitroglycerin 2% Oint) 1 inch ONCE ONCE TOPICAL Last administered on 04/03/17 05:27; Start 04/03/17 at 05:00; Stop 04/03/17 at 05:03 ; Status DC Sodium Chloride (NS Flush) 2 ml BID IV FLUSH ; Start 04/03/17 at 09:00; Stop at 09:00; Status DC Sodium Chloride 2 ml 2 ml UNSCH PRN IVF FLUSH AFTER USING IV ACCESS; Start at 05:15; Stop 04/03/17 at 05:27; Status DC Sodium Chloride (NS 1000 ml Inj) 1,000 ml @ 100 mls/hr Q10H IV ; Start at 05:05 Sodium Chloride (NS Flush) 2 ml UNSCH PRN IV FLUSH FLUSH AFTER USING IV ACCESS ; Start 04/03/17 at 05:15; Stop 04/03/17 at 05:27; Status DC Sodium Chloride (NS Flush) 2 ml BID IV FLUSH Last administered on 04/03/17 19: 48; Start 04/03/17 at 09:00 Ondansetron HCl (Zofran Inj) 4 mg Q6H PRN IVP NAUSEA OR VOMITING; Start at 05:15 Acetaminophen (Tylenol) 650 mg Q6H PRN PO FEVER/PAIN SCALE 1 TO 2 Last administered on 04/03/17 22:48; Start 04/03/17 at 05:15 Acetaminophen/ Hydrocodone Bitart ([place] 5-325 Mg) 1 tab Q4H PRN PO PAIN SCALE 3 TO 5; Start 04/03/17 at 05:15 Morphine Sulfate (Morphine Inj) 2 mg Q3H PRN IV Pain 6-10; Start 04/03/17 at 05 :15 Senna/Docusate Sodium ([place]ann-Colace) 1 tab BID PO ; Start 04/03/17 at 09:00 Magnesium Hydroxide (Milk Of Magnesia Liq) 30 ml Q12H PRN PO MILD - MODERATE CONSTIPATION; Start 04/03/17 at 05:15 Sennosides (Senokot) 17.2 mg Q12H PRN PO MODERATE - SEVERE CONSTIPATION; Start 04/03/17 at 05:15 Bisacodyl (Dulcolax Supp) 10 mg DAILY PRN RECTAL SEVERE CONSITIPATION; Start at 05:15 Lactulose (Lactulose Liq) 30 ml DAILY PRN PO SEVERE CONSITIPATION; Start at 05:15 Aspirin (Aspirin) 325 mg DAILY PO ; Start 04/03/17 at 09:00; Stop 04/03/17 at 09 :00; Status DC Metoprolol Tartrate (Lopressor) 100 mg BID PO ; Start 04/03/17 at 09:00; Stop at 09:00; Status DC Pravastatin Sodium (Pravachol) 40 mg DAILY PO ; Start 04/03/17 at 09:00 Ramipril (Altace) 10 mg DAILY PO ; Start 04/03/17 at 09:00 Metoprolol Tartrate 50 mg 50 mg BID PO Last administered on 04/03/17 19:48; Start 04/03/17 at 09:00 Sodium Chloride (NS 1000 ml Inj) 1,000 ml @ 100 mls/hr Q10H IV Last administered on 04/04/17 01:06; Start 04/03/17 at 15:06; Stop 04/08/17 at 15:05 Diphenhydramine HCl (Benadryl) 50 mg APPLICATION ARCHITECT MANAGER PO ; Start 04/03/17 at 16:00; Stop 04/07/17 at 15:59 Diazepam (Valium) 10 mg APPLICATION ARCHITECT MANAGER PO ; Start 04/03/17 at 15:15; Stop 04/07/17 at 15:14 Miscellaneous Information Patient in critical care unit? Ass... [id number] .[id number] ; Start 04/03/17 at 18:15 Chlorhexidine Gluconate (Chlorhexidine 2% Cloth) 3 pack DAILY@04 TOPICAL Last administered on 04/04/17 04:00; Start 04/04/17 at 04:00; Stop 04/08/17 at 04:01 Chlorhexidine Gluconate (Chlorhexidine 2% Cloth) 3 pack UNSCH PRN TOPICAL HYGIENIC CARE; Start 04/03/17 at 18:15; Stop 04/08/17 at 18:02 Calcium Carbonate (Tums Chew) 1,000 mg Q4H PRN CHEW HEARTBURN Last administered on 04/03/17 22:47; Start 04/03/17 at 22:00 A/P Assessment and Plan A/P - chest pain with history of CAD- s/p CABG and stent placement; possible recurrent angina started on heparin drip - continue with BB and statin- w cardiology evaluation appreciated and plan for cardiac cath later today. -hypertension; on ramipril and metoprolol- will monitor and adjust the regimen as needed. -DVT prophylaxis ; on heparin drip Discharge Planning when cleared by cardiology. Esther Cortez MD Apr 04, 2017 08:16
[2017-04-04] MEDS: DOCUSATE SODIUM 50 MG/SENNA 8.6 MG TAB PO SCH ×2 (09:00→20:27)
[2017-04-04] MEDS: SODIUM CHLORIDE 0.9% FLUSH 10 ML FLUSH IV FLUSH SCH ×2 (09:00→20:28)
[2017-04-04] MEDS: PRAVASTATIN SOD 40 MG TAB PO SCH (09:00)
[2017-04-04] MEDS: METOPROLOL TARTRATE 50 MG TAB PO SCH (09:00)
[2017-04-04] MEDS: RAMIPRIL 5 MG CAP PO SCH (09:00)
[2017-04-04 15:04] LABS: APTT (PATIENT) 46.9 SEC (24.3-30.1)
[2017-04-04] MEDS ORDERED: IOHEXOL 350 MG/ML 100 ML BTL (for Cath Lab) OTHER ONE (15:06)
[2017-04-04] MEDS ORDERED: HEPARIN-NS/PF INJ 500 ML ONE (15:07)
[2017-04-04] MEDS ORDERED: MIDAZOLAM HCL 5 MG/5 ML VIAL ONE (15:07)
[2017-04-04] MEDS ORDERED: HEPARIN SODIUM - IV 10,000 UNITS/10 ML VIAL ONE (15:48)
[2017-04-04] MEDS ORDERED: ADENOSINE STRESS TEST INJ 90 MG/30 ML VIAL ONE (15:50)
[2017-04-04] MEDS ORDERED: SODIUM CHLOR 0.9% 1000 ML INJ 1,000 ML IV SCH (16:30)
[2017-04-04] MEDS ORDERED: MISC INFORMATION XX ONE (16:30)
[2017-04-04] MEDS ORDERED: ATROPINE SULFATE 1 MG/ML VIAL IV PRN (16:30)
[2017-04-04] MEDS ORDERED: SODIUM CHLOR 0.9% 250 ML INJ 250 ML IV PRN (16:30)
--- NOTE | 2017-04-04 16:34 | CATHPROC ---
[employer] HIS Report Study Information Study Number Admission Scheduled Start Study Start [id number] Apr 03 2017 5:26AM 04/04/2017 Apr 04 2017 3:03PM [place] [facility] Cardiac Catheterization Admit Source Facility Department Other [facility] - [facility] Physician and Clinical Staff Initial Mando Ocampo Abrasive Mixer Helper Jojo Montes De Oca,KERMIT Recorder Jayson Andrea RCIS(BS) Scrub Teri Doyle RCIS TECH2 Procedures Performed Procedure Location (Site) Vessel Name Angiogram LV LV Ventricle Coronary Angiograms LCA Left Coronary Coronary Angiograms RCA Right Coronary Coronary Angiograms SVG-OM CIRC L Heart Cath Wire insertion Fem Art (right) Femoral Art Equipment Time Wood Science Professor Description Size Mfg Part Number Used/Scraped [id number] 16:06 [employer] WIRE, ASACircuitLab PROWATER 180CM 180CM Used *[id number] TRANSDUCER, TRUWAVE [id number] 15:33 Wellbe LEUNG * Used W/STOCKCOCK *[id number] 16:18 [employer] MEDICAL VASCADE, FR6 CLOSURE SYSTEM FR 6\7 Used *[id number] [id number] *[id number] *[id number] 534-620T *[id number] 534-672T *[id number] 534-650S *[id number] 15:33 [employer] INDUSTRIES PACK, CCL CUSTOM * Used *[id number] 15:33 [employer] PACER PEN, SKIN DUAL W/ RULER * Used *[id number] 16:20 Telisma 30 MICAH INDEFLATOR Used *[id number] 15:33 [employer]isma SHEATH, FR6.5 PRELUDE 11CM FR 6.5 038ACT Used *[id number] 15:33 [employer]isma WIRE, 3MMJ .035 180CM 180CM Used *[id number] 15:33 NAMIC MANIFOLD, 4 PORT * Used *[id number] 15:33 [employer]COMED OMNIPAQUE, 350 MG, 150ML 150ML [id number] Used [id number] 15:33 dianboom MEDICAL BLANKET,WARM AIR CCL * Used *[id number] 15:53 [employer] PRIME WIRE, VERRATA 185CM 185CM [id number] *[id number] Used Equipment Model, Serial, Lot Number and Expiration Data Description Model Number Serial Number Lot Number Expiration Date GIANNA LEAL [id number] 02-13-2020 History: Current Medications Medication Dosage/Unit Route Frequency Last Date/Time Taken Beta Sharon Statins (any) History: Allergies Allergy Reaction Sulfa HIVES,ITCHING History: Risk Factors Family History of Hypertension Dyslipidemia Previous AR Previous Heart Failure Premature CAD Yes Yes No Yes No Prior Valve Prior PCI Prior PCIDate Prior CABG Prior CABGDate Surgery No Yes 10/16/2010 Yes 10/16/2005 Cerebrovascular Peripheral Artery Chronic Lung On Dialysis Diabetes Disease Disease Disease No No No No No History: Symptoms/Diagnosis Selection Items Chest pain History: Stress Tests Stress or Imaging Studies Performed No History: Other Current Smoker Method Quit Packs a Day Years Used Pack Years Yes Cigars 1 Years Ago 3 10 30 Labs Hgb (g/dl) Hct (%) WBC (l/cumm) Platelets (thousands) 12.00-18.00 37.00-55.00 4.80-10.80 140.00-450.00 11.8 36.2 6.6 123 Glucose (mg/dl) BUN (mg/dl) Creatinine (mg/dl) BUN:Creatinine (1:x) 60.00-110.00 8.00-20.00 0.10-9.00 10.00-20.00 81 14 1.0 14 Na (meq/l) K (meq/l) 138.00-146.00 3.80-5.10 145 4 INR (PTT:PT) 0.50-2.00 0.9 Troponin I (ng/ml) CPK-MB (ng/ML) 0.40-2.30 0.00-7.00 0.68 Not Drawn Medication Medication Total Dose (Bolus/Oral) Medication Total Dosage/Unit 1% XYLOCAINE 20 mL HEPARIN 5400 units VERSED 1 mg Medications (Bolus/Oral) Medication Time Given Dosage/Unit Administered By Reason 1% XYLOCAINE 04/04/2017 3:39:00 PM 20 mL Mando Wright 20 mL 1% XYLOCAINE given in lab by Mando Wright in Right Groin via Subcutaneous. Ordered by Prince Wrightn. VERSED 04/04/2017 3:39:29 PM 1 mg Jojo Montes De Oca 1 mg VERSED given in lab by Jojo Montes De Oca RN in Right Antecubital via Peripheral IV. Ordered by Mando Dunham. HEPARIN 04/04/2017 3:51:27 PM 5400 units Jojo Montes De Oca 5400 units HEPARIN given in lab by Jojo Montes De Oca, KERMIT in Right Antecubital via Peripheral IV. Ordere d by Mando Wright. Medication (Drip) Medication Time Given Dosage/Unit Concentration/Unit Diluent (ml) Solution ADENOSINE DRIP 04/04/2017 4:09:00 PM 140 mcg/kg/min 90 mg 90 NaCl .9 140 mcg/kg/min ADENOSINE DRIP given in lab by Jojo Montes De Oca, KERMIT in Right Antecubital via Peripheral IV. Pump/Drip Flow = 743.4 ml/hr using NaCl .9 with a concentration of 90 mg in 90 ml. Ordered by Madno Wright. ADENOSINE DRIP 04/04/2017 4:13:13 PM 0 units/hr 0 STOPPED 0 units/hr ADENOSINE DRIP STOPPED given in lab by Jojo Montes De Oca RN. Pump/Drip Flow = 0 ml/hr using [Solution Name]. Ordered by Mando Wright. IV Solutions 04/04/2017 3:08:25 PM 0 mL (IV) 500 NaCl .9 Patient arrived on IV Solutions in Right Antecubital via Peripheral IV. Pump/Drip Flow = 20 ml/hr usi ng NaCl .9. Ordered by Mando Wright. Initial Case Assessment Cardiovascular HR Rhythm NIBP Chest Pain 54 AFIB 162/88 0 Edema Present Skin color Skin None Normal Warm Dry Circulatory - Right Pulses Dorsalis Pedis Femoral 3 2 Scale (0,1,2,3,4,d) Circulatory - Left Pulses Dorsalis Pedis Femoral 3 3 Scale (0,1,2,3,4,d) Circulatory - Lower Extremities Color Lower Right Color Lower Left Normal Normal Neurological State Oriented to time-place- Alert Moves all extremities person Respiration - General Respiration Rate SpO2 (%) (B/min) 20 96 Final Case Assessment Cardiovascular HR Rhythm NIBP Chest Pain 54 AFIB 162/88 0 Edema Present Skin color Skin None Normal Warm Dry Circulatory - Right Pulses Dorsalis Pedis Femoral 3 2 Scale (0,1,2,3,4,d) Circulatory - Left Pulses Dorsalis Pedis Femoral 3 3 Scale (0,1,2,3,4,d) Circulatory - Lower Extremities Color Lower Right Color Lower Left Normal Normal Neurological State Oriented to time-place- Alert Moves all extremities person Respiration - General Respiration Rate SpO2 (%) (B/min) 20 96 Chronological Log Time Study Chronological Log 15:06:30 Patient arrived via Bed. 15:06:31 Patient Name, D.O.B, / Armband Verified By R.N. 15:06:32 Consent signed by the physician and the patient and verified by the [facility] staff. 15:06:34 Pre-op and post- op instructions given; patient acknowledges understanding of instructions. 15:06:35 Verbal Stimulation=2 Physical Stimulation=2 Airway=2 Respiration=2 TOTAL=8. (0=absent, 1=li mited, 2=present) 15:08:18 Patient has been NPO for Less than 6Hrs. 15:08:20 Skin Breakdown- 15:08:21 Patient Warmer Placed on the Table. 15:08:24 A # 20 IV was noted in the Antecubital (right). Grade = 0 Patient arrived on IV Solutions in Right Antecubital via Peripheral IV. Pump/Drip Flow = 20 ml/ hr using NaCl .9. Ordered 15:08:25 by Mando Wright. 15:08:25 History and physical on the chart or being dictated. Assessment: Initial Case, HR=54 BPM, Rhythm=AFIB, BGZZ=626/88 mmhg, Chest Pain=0, Edema=None, Color=Normal, Skin = Warm, Dry Right Pulses: Jesse Ped=3, Femoral=2 Left Pulses: Jesse Ped=3, Femoral=3 15:08:26 Lower Right Extremities: Color=Normal Lower Left Extremities: Color=Normal Neurological: State=Alert, Ox3, SANDRA Respiration: Resp=20 B/min, SpO2=96 % Vitals capture started with the following parameters, Patient=Adult, Interval=5 min, Initial Pr akewps=195 mmHg, 15:13:42 Deflation Rate=5 mmHg 15:14:10 HR=59 bpm, QXMX=646/80 mmhg, SpO2=95.0 %, Resp=19 B/min, Pain=0, Yohan=10, Jeffery=2 15:20:18 HR=67 bpm, SGHC=141/103 mmhg, SpO2=97.0 %, Resp=20 B/min, Pain=0, Yohan=10, Jeffery=2 15:20:45 Pressure channel 1 zeroed. 15:24:26 HR=61 bpm, BBDM=731/91 mmhg, SpO2=98.0 %, Resp=20 B/min, Pain=0, Yohan=10, Jeffery=2 15:26:00 Bilateral groins prepped with 2% chlorhexidine, and with a 3 min. waiting time. 15:29:29 HR=57 bpm, OSGS=351/88 mmhg, SpO2=99.0 %, Resp=20 B/min, Pain=0, Yohan=10, Jeffery=2 15:31:52 Reference ECG taken 15:31:57 MD paged 15:33:00 MD arrived. 15:34:55 HR=99 bpm, ZKYL=895/99 mmhg, SpO2=96.0 %, Resp=26 B/min, Pain=0, Yohan=10, Jeffery=2 Time Out. Correct patient, correct procedure,correct physician, power injector loaded with cont rast with surgical team 15:36:36 present. Time Out Concurred by MD, individual staff and in procedure 15:39:00 20 mL 1% XYLOCAINE given in lab by Mando Wright in Right Groin via Subcutaneous. Ordered by Mando Wright. 15:39:06 Case Start 15:39:29 1 mg VERSED given in lab by Jojo Montes De Oca, KERMIT in Right Antecubital via Peripheral IV. Ord ered by Mando Wright. 15:39:55 Access site was Right Femoral Artery. 15:39:59 A SHEATH, FR6.5 PRELUDE 11CM FR 6.5 was advanced into the Fem Art (right) using the Percuta neous technique. 15:40:06 HR=59 bpm, SVHR=688/87 mmhg, SpO2=95.0 %, Resp=22 B/min, Pain=0, Yohan=10, Jeffery=2 Recorded Pressure: Ao, HR=59, Condition=Condition 1 15:40:47 (Aorta) Ao 168/81/114 A JL 4.0 INFINITI CATHETER FR 6 was advanced over a wire. OMNIPAQUE, 350 MG, 150ML 150ML was us ed for 15:41:13 injections. 15:41:28 The LCA was injected and visualized at various angles. OMNIPAQUE, 350 MG, 150ML 150ML used . After removing the current catheter a 3DRC INFINITI CATHETER FR 6 was advanced over a WIRE, 3MM J .035 180CM 15:43:00 180CM. 15:43:07 The RCA was injected and visualized at various angles. OMNIPAQUE, 350 MG, 150ML 150ML used . 15:43:45 The SVG-OM was injected and visualized at various angles. OMNIPAQUE, 350 MG, 150ML 150ML us ed. 15:44:26 HR=66 bpm, CESD=611/109 mmhg, SpO2=95.0 %, Resp=19 B/min, Pain=0, Yohan=10, Jeffery=2 After removing the current catheter a LCB INFINITI CATHETER FR 6 was advanced over a WIRE, 3MMJ .035 180CM 15:46:27 180CM. After removing the current catheter a AL 1 GUIDE CATHETER FR 6 was advanced over a WIRE, 3MMJ . 035 180CM 15:47:42 180CM. 15:49:30 HR=56 bpm, CDJG=831/86 mmhg, SpO2=96.0 %, Resp=19 B/min, Pain=0, Yohan=10, Jeffery=2 5400 units HEPARIN given in lab by Jojo Montes De Oca RN in Right Antecubital via Peripheral IV. Ordered by Kyle, 15:51:27 Mando. 15:55:06 HR=64 bpm, OFZM=837/94 mmhg, SpO2=97.0 %, Resp=19 B/min, Pain=0, Yohan=10, Jeffery=2 15:56:33 Pressure channel 1 zeroed. 15:57:00 Activated Clotting Time Drawn 15:57:48 A PRIME WIRE, VERRATA 185CM 185CM was inserted via Fem Art (right). 15:59:24 HR=56 bpm, TPWW=737/80 mmhg, SpO2=97.0 %, Resp=18 B/min, Pain=0, Yohan=10, Jeffery=2 15:59:47 Flow Wire was was placed in the SVG-OM. The FFR measures 0.99 percent. The IFR measures 1.0 3 Percent. 16:00:55 ACT (Normal Range 90-180) = 269 Recorded Pressure: Ao, HR=60, Condition=Condition 1 16:02:03 (Aorta) Ao 174/82/115 16:04:23 HR=58 bpm, RNHG=902/90 mmhg, SpO2=98.0 %, Resp=20 B/min, Pain=0, Yohan=10, Jeffery=2 140 mcg/kg/min ADENOSINE DRIP given in lab by Jojo Montes De Oca, RN in Right Antecubital via Roseann pheral IV. 16:09:00 Pump/Drip Flow = 743.4 ml/hr using NaCl .9 with a concentration of 90 mg in 90 ml. Ordered by Mando Yepez. 16:09:28 HR=66 bpm, UJQN=819/99 mmhg, SpO2=97.0 %, Resp=20 B/min, Pain=0, Yohan=10, Jeffery=2 0 units/hr ADENOSINE DRIP STOPPED given in lab by Jojo Montes De Oca, KERMIT. Pump/Drip Flow = 0 ml/hr using [Solution 16:13:13 Name]. Ordered by Mando Wright. 16:14:26 The PRIME WIRE, VERRATA 185CM 185CM was removed. 16:14:29 HR=83 bpm, GLEB=455/92 mmhg, SpO2=98.0 %, Resp=21 B/min, Pain=0, Yohan=10, Jeffery=2 16:14:37 Catheter was removed A PIGTAIL STR INFINITI CATHETER FR 6 was advanced over a wire. OMNIPAQUE, 350 MG, 150ML 150ML w as used for 16:14:46 injections. Recorded Pressure: LV, HR=71, Condition=Condition 1 16:14:51 (Left Ventricle) LV 169/13/24 16:16:08 The LV was injected at 12 cc/sec for a total of 42. OMNIPAQUE, 350 MG, 150ML 150ML used. Recorded Pressure: LV, Ao, HR=71, Condition=Condition 1 16:16:22 (Left Ventricle) LV 165/-8/23, (Aorta) Ao 171/78/117 16:16:50 Catheter was removed 16:17:06 An injection in the Fem Art (right) was made through the SHEATH, FR6.5 PRELUDE 11CM FR 6.5. 16:17:49 VASCADE, FR6 CLOSURE SYSTEM FR 6\7 placement in the Fem Art (right) 16:18:32 Case End Assessment: Final Case, HR=54 BPM, Rhythm=AFIB, DWQR=305/88 mmhg, Chest Pain=0, Edema=None, Color=Normal, Skin = Warm, Dry Right Pulses: Jesse Ped=3, Femoral=2 Left Pulses: Jesse Ped=3, Femoral=3 16:18:49 Lower Right Extremities: Color=Normal Lower Left Extremities: Color=Normal Neurological: State=Alert, Ox3, SANDRA Respiration: Resp=20 B/min, SpO2=96 % 16:20:11 HR=68 bpm, ZOYH=002/99 mmhg, SpO2=92.0 %, Resp=18 B/min, Pain=0, Yohan=10, Jeffery=2 16:20:35 Sterile dressing applied to site 16:20:36 No case complications noted. 16:20:37 Cine recording checked. 16:20:41 Bedside Report will be given. 16:20:43 Contrast Scanned 16:20:48 A Left Heart Cath was performed. 16:26:03 HR=71 bpm, PEUV=937/121 mmhg, Resp=18 B/min, Pain=0, Yohan=10, Jeffery=2 16:26:24 NIBP STAT measurement started. 16:27:17 HR=68 bpm, PPRJ=232/94 mmhg, Resp=20 B/min, Pain=0, Yohan=10, Jeffery=2 16:29:20 Vitals capture stopped. 16:31:20 [facility] Study - Contrast Media Used In Study Contrast Total Opened (mL) Total Used (mL) Total Wasted (mL) Omnipaque 100 100 0 End Study - Maximum Contrast Load Max Contrast Load (mL) 442.5 End Study - Radiation Exposure Fluoro Time (minutes) 10.3 End Study - Patient Disposition Complications Transferred To Telemetry Bed
[2017-04-04] MEDS ORDERED: cloNIDine HCL 0.1 MG TAB PO PRN (16:45)
--- NOTE | 2017-04-04 18:10 | MA ---
cc: KIRK LOPEZ M.D. Corrected Copy: 04/05/17 DATE: 04/04/2017 PROCEDURE Left heart catheterization, selective coronary and graft angiography, left ventriculography, instant flow reserve and fractional flow reserve measurement of the vein graft to the obtuse marginal. PROCEDURE NOTE The patient was brought to the cardiac catheterization laboratory in fasting state after having signed informed consent. The right groin was prepped and draped as per policy and anesthetized with 1% lidocaine. Arterial access was obtained via the right femoral artery and a 6-[place] sheath placed. Coronary arteriography was performed using 6-[place] Maria M left 4.0 and right progressive catheters. The Y-graft was engaged best with a left coronary bypass catheter as well as an Amplatz left 1.0 guiding catheter. Left ventriculography was done using a standard 6-[place] pigtail. IFR and FFR measurements were taken as described below. There were no apparent immediate complications. His arteriotomy site was closed with VASCADE with the achievement of good hemostasis. HEMODYNAMIC RESULTS Left ventricle 165 with an end-diastolic pressure of 23. Aorta 171/78 with a mean of 117. There was no significant transvalvular aortic gradient on pullback of the pigtail catheter. CORONARY ARTERIOGRAPHY The left main is a very large caliber vessel which has mild distal tapering resulting in up to 25% stenosis. The left anterior descending is totally occluded proximally. The left circumflex is a fairly small caliber vessel giving rise to a small first obtuse marginal and small second obtuse marginal. The second obtuse marginal may be totally occluded in its midportion. The left circumflex has diffuse luminal irregularities resulting in up to 10-20% stenosis proximally. The right coronary artery is a fairly large dominant vessel which is also diffusely diseased. There are a number of stents encompassing the proximal to distal right coronary. In the very proximal right coronary there is up to 40% stenosis. The most recently placed stent (2 months ago) in the proximal right coronary is widely patent. The rest of the stents appear to have minimal to mild diffuse luminal irregularities. The posterior descending artery is a small caliber vessel with overall mild diffuse disease, particularly proximally. GRAFT ANGIOGRAPHY The Y-graft to the diagonal and obtuse marginal appears to be widely patent. At the origin of the limb to the obtuse marginal there is eccentric 50-65% stenosis. The mid to distal diagonal has minimal luminal irregularities. The patient has a left internal mammary artery to the LAD which was shown to be patent on cardiac catheterization about 8 weeks ago and not engaged on the present study. LEFT VENTRICULOGRAPHY Contrast injection of the left ventricle reveals global hypokinesis. Ejection fraction is roughly estimated at 45%. IN STENT FLOW RESERVE AND FRACTIONAL FLOW RESERVE MEASUREMENT In light of the patient's recent symptoms and borderline nature of the stenosis in the limb of the Y-graft to the obtuse marginal, it was decided to perform additional hemodynamic measurements. Adequate heparin was given to achieve an ACT greater than 250 seconds. Using a 6-[place] Amplatz left 1.0 guiding catheter the ostium of the vein graft was re-engaged. A [employer] wire was introduced, normalized, and then positioned distal to the lesion. The IFR measurement was 1.03. Adenosine 140 mcg/kg per minute was infused over 3 minutes. The FFR measurement was 0.99. CONCLUSION 1. Severe two-vessel coronary artery disease. 2. Right dominant system. 3. Widely patent cahto right coronary artery stents encompassing the proximal to distal vessel. 4. Patent Y-graft to the diagonal and obtuse marginal. Known patent left internal mammary artery to the LAD. 5. Status post instant flow reserve and fractional flow reserve measurements of the vein graft to the obtuse marginal confirming the absence of hemodynamically significant disease in this vessel. 6. Mildly reduced left ventricular systolic function with ejection fraction estimated at 45% due to relatively global hypokinesis. MD ADRIANNA Schreiber/CATHY /4:29 PM /10:08 AM KATHLEEN
[2017-04-04] MEDS: METOPROLOL TARTRATE 100 MG TAB PO SCH (20:27)
[2017-04-05] VITALS (11 sets, daily range): BP systolic 126–137; BP diastolic 67–77; PULSE 46–62; RESP 17–20; TEMP 98.2–98.7; O2SAT 93–96
[2017-04-05] MEDS: CHLORHEXIDINE GLUCONATE 2 % 1 PACK (2 CLOTHS)(taper/protocol) TOPICAL SCH (03:48)
[2017-04-05 06:03] LABS: BICARBONATE 25.2 MEQ/L (21.0-32.0); POTASSIUM 3.9 MEQ/L (3.5-5.1)
--- NOTE | 2017-04-05 08:34 | PD.CARD.PN ---
Subjective Subjective Remarks No neck pain, CP, groin pain, dyspnea, dizziness. Objective Medications Item Value Date Time Aspirin 81 mg 01/19/17 0900 (Aspirin Chew) DAILY/PO Ticagrelor 90 mg 01/18/17 2100 (Brilinta) BID/PO Patient Own PT OWN MED: LIVALO 1 M... 01/19/17 0900 Medication DAILY/PO Metoprolol 100 mg 04/04/17 2100 Tartrate BID/PO 04/04/172026 (Lopressor) Amlodipine 10 mg 04/04/17 1630 Besylate DAILY/PO 04/04/171653 (Norvasc) Pravastatin Sodium 40 mg 04/03/17 0900 (Pravachol) DAILY/PO 04/04/17 0900 Ramipril 10 mg 04/03/17 0900 (Altace) DAILY/PO 04/04/17 0900 Vital Signs / I&O Vital Signs Date Time Temp Pulse Resp B/P Pulse Ox O2 Delivery O2 Flow Rate FiO2 04/05/17 07:15 98.7 51 17 137/77 93 04/05/17 07:15 51 04/05/17 05:00 56 04/05/17 04:00 52 04/05/17 03:15 98.2 52 20 126/67 96 04/05/17 03:00 47 04/05/17 02:00 52 04/05/17 01:00 46 04/05/17 00:00 52 04/04/17 23:15 98.2 52 21 115/57 95 04/04/17 23:00 51 04/04/17 22:00 56 04/04/17 21:00 56 04/04/17 20:02 98.2 57 21 130/72 95 04/04/17 20:00 56 04/04/17 19:00 49 04/04/17 18:00 55 04/04/17 17:00 56 04/04/17 16:40 97.5 59 21 177/100 92 04/04/17 13:01 61 26 167/90 94 04/04/17 13:00 62 29 94 04/04/17 12:01 56 31 190/95 94 04/04/17 12:00 67 04/04/17 12:00 98.4 60 26 94 04/04/17 11:00 53 20 162/85 96 04/04/17 10:00 65 04/04/17 10:00 54 28 153/89 96 04/04/17 09:01 56 33 159/85 97 04/04/17 09:00 52 24 96 I/O 04/04/17 04/04/17 04/04/17 04/05/17 04/05/17 04/05/17 07:00 15:00 23:00 07:00 15:00 23:00 Intake Total 829 ml 1400 ml 720 ml Output Total 1100 ml 1500 ml 550 ml 1100 ml Balance -271 ml -100 ml -550 ml -380 ml Intake Oral 0 ml 720 ml IV Total 829 ml 1400 ml Output Urine Total 1100 ml 1500 ml 550 ml 1100 ml # Bowel Movements 0 Physical Exam GENERAL: Well developed, well nourished. No acute distress. HEENT: Jugular venous pressure is normal. CHEST: Lungs clear to auscultation bilaterally. Unlabored respiratory effort. CARDIAC: Regular rate and rhythm without S3, S4. II/ MINERVA along left sternal border. ABDOMEN: Soft, nontender, no hepatosplenomegaly. Bowel sounds present. EXTREMITIES: No clubbing, cyanosis, or edema. Right groin nontender, no hematoma. Laboratory Laboratory Tests Test 04/04/17 04/05/17 14:29 05:02 Activated Partial 46.9 SEC Thromboplast Time Sodium Level 141 MEQ/L Potassium Level 3.9 MEQ/L Chloride Level 107 MEQ/L Carbon Dioxide Level 25.2 MEQ/L Anion Gap 9 MEQ/L Blood Urea Nitrogen 13 MG/DL Creatinine 1.07 MG/DL Estimat Glomerular Filtration 70 ML/MIN Rate Random Glucose 76 MG/DL Calcium Level 7.9 MG/DL Assessment and Plan Problem List: (1) Coronary artery disease Assessment and Plan: Stable overnight. No further neck pain. Favorable findings on cath yesterday. Etiology of slight troponin rise not entirely clear. Rec continue medical therapy. OK to discharge today on same home medications plus amlodipine 10 mg qd. Will electronically send script for amlodipine to his pharmacy today. (2) Paroxysmal atrial fibrillation Assessment and Plan: Stable. No recurrent atrial fib. Cont daily aspirin. CHADS VASc 1. (3) Hypertension Assessment and Plan: Normotensive on current regimen. Continue same. (4) Hyperlipidemia Assessment and Plan: Patient followed regularly as outpatient. Cont statin therapy. Code Status full code Discussed Condition With patient Problem Qualifiers (1) Coronary artery disease: Qualified Code: I25.110 - Coronary artery disease involving [place] coronary artery of [place] heart with unstable angina pectoris (2) Hypertension: Qualified Code: I10 - Essential hypertension (3) Hyperlipidemia: Qualified Code: E78.2 - Mixed hyperlipidemia Mando Wright MD Apr 05, 2017 08:34
[2017-04-05] MEDS: SODIUM CHLORIDE 0.9% FLUSH 10 ML FLUSH IV FLUSH SCH (09:00)
[2017-04-05] MEDS: RAMIPRIL 5 MG CAP PO SCH (09:01)
[2017-04-05] MEDS: DOCUSATE SODIUM 50 MG/SENNA 8.6 MG TAB PO SCH (09:01)
[2017-04-05] MEDS: PRAVASTATIN SOD 40 MG TAB PO SCH (09:01)
[2017-04-05] MEDS: METOPROLOL TARTRATE 100 MG TAB PO SCH (09:03)
--- NOTE | 2017-04-05 09:12 | HHI.DCPOC ---
Discharge Care Plan Diagnosis: (1) Coronary artery disease (2) Chest pain Your Health Problems Are: Chest Pain Goals to Promote Your Health * To prevent worsening of your condition and complications * To maintain your health at the optimal level Directions to Meet Your Goals Take your medications as prescribed Follow your dietary instruction Follow activity as directed Keep your appointments as scheduled Take your immunizations and boosters as scheduled If your symptoms worsen call your PCP, if no PCP go to Urgent Care Center or Emergency Room Smoking is Dangerous to Your Health. Avoid second hand smoke Call the 24-hour hour crisis hotline for domestic abuse at Esther Cortez MD Apr 05, 2017 09:12
--- NOTE | 2017-04-05 09:12 | HHI.PR ---
Subjective Remarks resting comfortably with no distress. no chest pain or sob. wants to go home today. Objective Vitals Vital Signs Date Time Temp Pulse Resp B/P Pulse Ox O2 Delivery O2 Flow Rate FiO2 04/05/17 07:15 98.7 51 17 137/77 93 04/05/17 07:15 51 04/05/17 05:00 56 04/05/17 04:00 52 04/05/17 03:15 98.2 52 20 126/67 96 04/05/17 03:00 47 04/05/17 02:00 52 04/05/17 01:00 46 04/05/17 00:00 52 04/04/17 23:15 98.2 52 21 115/57 95 04/04/17 23:00 51 04/04/17 22:00 56 04/04/17 21:00 56 04/04/17 20:02 98.2 57 21 130/72 95 04/04/17 20:00 56 04/04/17 19:00 49 04/04/17 18:00 55 04/04/17 17:00 56 04/04/17 16:40 97.5 59 21 177/100 92 04/04/17 13:01 61 26 167/90 94 04/04/17 13:00 62 29 94 04/04/17 12:01 56 31 190/95 94 04/04/17 12:00 67 04/04/17 12:00 98.4 60 26 94 04/04/17 11:00 53 20 162/85 96 04/04/17 10:00 65 04/04/17 10:00 54 28 153/89 96 I/O 04/04/17 04/04/17 04/04/17 04/05/17 04/05/17 04/05/17 07:00 15:00 23:00 07:00 15:00 23:00 Intake Total 829 ml 1400 ml 720 ml Output Total 1100 ml 1500 ml 550 ml 1100 ml Balance -271 ml -100 ml -550 ml -380 ml Intake Oral 0 ml 720 ml IV Total 829 ml 1400 ml Output Urine Total 1100 ml 1500 ml 550 ml 1100 ml # Bowel Movements 0 Result Diagram: 04/04/17 0504/05/17 050 Imaging Last Impressions Chest X-Ray 04/03/17 2193 Signed Impressions: Service Date/Time: Monday, April 03, 2017 04:12 - CONCLUSION: No evidence of acute cardiopulmonary disease. Ari Gonzales MD Objective Remarks GENERAL: This is a well-nourished, well-developed patient, in no apparent distress. CARDIOVASCULAR: Regular rate and regular rhythm without murmurs, gallops, or rubs. RESPIRATORY: Clear to auscultation. Breath sounds equal bilaterally. No wheezes , rales, or rhonchi. GASTROINTESTINAL: Abdomen soft, non-tender, nondistended. Normal, active bowel sounds MUSCULOSKELETAL: Extremities without clubbing, cyanosis, or edema. NEURO: Alert & Oriented x4 to person, place, time, situation. Moves all ext x4 Procedures cardiac cath. Medications and IVs Current Medications Aspirin (Aspirin Chew) 162 mg ONCE ONCE PO Last administered on 04/03/17 04: 04; Start 04/03/17 at 04:00; Stop 04/03/17 at 04:01; Status DC Sodium Chloride (NS Flush) 2 ml UNSCH PRN IVF FLUSH AFTER USING IV ACCESS; Start 04/03/17 at 04:00; Stop 04/03/17 at 05:27; Status DC Nitroglycerin 0.4 mg 0.4 mg Q5M SL Last administered on 04/03/17 04:06; Start 04/03/17 at 04:00; Stop 04/03/17 at 04:11; Status DC Sodium Chloride (NS 1000 ml Inj) 1,000 ml @ 100 mls/hr Q10H IV Last administered on 04/03/17 04:06; Start 04/03/17 at 04:00; Stop 04/03/17 at 05:28 ; Status DC Heparin Sodium (Porcine) (Heparin Inj) 4,000 units ONCE ONCE IV Last administered on 04/03/17 05:26; Start 04/03/17 at 05:00; Stop 04/03/17 at 05:03 ; Status DC Heparin Sodium (Porcine) (Heparin Inj) 5,000 units UNSCH PRN IV APTT LESS THAN 25; Start 04/03/17 at 11:00; Stop 04/04/17 at 16:41; Status DC Heparin Sodium (Porcine) 2500 units 2,500 units UNSCH PRN IV APTT 25 TO 39; Start 04/03/17 at 11:00; Stop 04/04/17 at 16:41; Status DC Heparin Sodium/ Dextrose (Heparin-D5W Inj) 250 ml @ 0 mls/hr TITRATE IV Last administered on 04/03/17 19:50; Start 04/03/17 at 05:00; Stop 04/04/17 at 16:41 ; Status DC Nitroglycerin (Nitroglycerin 2% Oint) 1 inch ONCE ONCE TOPICAL Last administered on 04/03/17 05:27; Start 04/03/17 at 05:00; Stop 04/03/17 at 05:03 ; Status DC Sodium Chloride (NS Flush) 2 ml BID IV FLUSH ; Start 04/03/17 at 09:00; Stop at 09:00; Status DC Sodium Chloride 2 ml 2 ml UNSCH PRN IVF FLUSH AFTER USING IV ACCESS; Start at 05:15; Stop 04/03/17 at 05:27; Status DC Sodium Chloride (NS 1000 ml Inj) 1,000 ml @ 100 mls/hr Q10H IV ; Start at 05:05; Stop 04/04/17 at 16:39; Status DC Sodium Chloride (NS Flush) 2 ml UNSCH PRN IV FLUSH FLUSH AFTER USING IV ACCESS ; Start 04/03/17 at 05:15; Stop 04/03/17 at 05:27; Status DC Sodium Chloride (NS Flush) 2 ml BID IV FLUSH Last administered on 04/05/17 09: 00; Start 04/03/17 at 09:00 Ondansetron HCl (Zofran Inj) 4 mg Q6H PRN IVP NAUSEA OR VOMITING; Start at 05:15 Acetaminophen (Tylenol) 650 mg Q6H PRN PO FEVER/PAIN SCALE 1 TO 2 Last administered on 04/03/17 22:48; Start 04/03/17 at 05:15 Acetaminophen/ Hydrocodone Bitart ([place] 5-325 Mg) 1 tab Q4H PRN PO PAIN SCALE 3 TO 5; Start 04/03/17 at 05:15 Morphine Sulfate (Morphine Inj) 2 mg Q3H PRN IV Pain 6-10; Start 04/03/17 at 05 :15 Senna/Docusate Sodium ([place]-Colace) 1 tab BID PO Last administered on 09:01; Start 04/03/17 at 09:00 Magnesium Hydroxide (Milk Of Magnesia Liq) 30 ml Q12H PRN PO MILD - MODERATE CONSTIPATION; Start 04/03/17 at 05:15 Sennosides (Senokot) 17.2 mg Q12H PRN PO MODERATE - SEVERE CONSTIPATION; Start 04/03/17 at 05:15 Bisacodyl (Dulcolax Supp) 10 mg DAILY PRN RECTAL SEVERE CONSITIPATION; Start at 05:15 Lactulose (Lactulose Liq) 30 ml DAILY PRN PO SEVERE CONSITIPATION; Start at 05:15 Aspirin (Aspirin) 325 mg DAILY PO ; Start 04/03/17 at 09:00; Stop 04/03/17 at 09 :00; Status DC Metoprolol Tartrate (Lopressor) 100 mg BID PO ; Start 04/03/17 at 09:00; Stop at 09:00; Status DC Pravastatin Sodium (Pravachol) 40 mg DAILY PO Last administered on 04/05/17 09 :01; Start 04/03/17 at 09:00 Ramipril (Altace) 10 mg DAILY PO Last administered on 04/05/17 09:01; Start at 09:00 Metoprolol Tartrate 50 mg 50 mg BID PO Last administered on 04/04/17 09:00; Start 04/03/17 at 09:00; Stop 04/04/17 at 16:32; Status DC Sodium Chloride (NS 1000 ml Inj) 1,000 ml @ 100 mls/hr Q10H IV Last administered on 04/04/17 01:06; Start 04/03/17 at 15:06; Stop 04/04/17 at 16:39 ; Status DC Diphenhydramine HCl (Benadryl) 50 mg CONSUMER LOAN UNDERWRITER PO Last administered on 14:11; Start 04/03/17 at 16:00; Stop 04/07/17 at 15:59 Diazepam (Valium) 10 mg CONSUMER LOAN UNDERWRITER PO Last administered on 04/04/17 14:11; Start 04/03/17 at 15:15; Stop 04/07/17 at 15:14 Miscellaneous Information Patient in critical care unit? Ass... [id number] .XX ; Start 04/03/17 at 18:15 Chlorhexidine Gluconate (Chlorhexidine 2% Cloth) 3 pack DAILY@04 TOPICAL Last administered on 04/04/17 04:00; Start 04/04/17 at 04:00; Stop 04/08/17 at 04:01 Chlorhexidine Gluconate (Chlorhexidine 2% Cloth) 3 pack UNSCH PRN TOPICAL HYGIENIC CARE; Start 04/03/17 at 18:15; Stop 04/08/17 at 18:02 Calcium Carbonate 1000 mg 1,000 mg Q4H PRN CHEW HEARTBURN Last administered on 04/03/17 22:47; Start 04/03/17 at 22:00 Heparin Sodium/ Sodium Chloride (Heparin-NS/Pf Inj) 500 ml @ As Directed STK- MED ONCE .ROUTE Last administered on 04/04/17 15:07; Start 04/04/17 at 15:07; Stop 04/04/17 at 15:08; Status DC Midazolam HCl (Versed Inj) 5 mg STK-MED ONCE .ROUTE Last administered on 15:39; Start 04/04/17 at 15:07; Stop 04/04/17 at 15:08; Status DC Heparin Sodium (Porcine) (Heparin Inj) 10,000 units STK-MED ONCE .ROUTE Last administered on 04/04/17 15:51; Start 04/04/17 at 15:48; Stop 04/04/17 at 15:49 ; Status DC Adenosine (Adenoscan Inj) 90 mg STK-MED ONCE .ROUTE Last administered on 16:09; Start 04/04/17 at 15:50; Stop 04/04/17 at 15:51; Status DC Metoprolol Tartrate 100 mg 100 mg BID PO Last administered on 04/05/17 09:03; Start 04/04/17 at 21:00 Sodium Chloride (NS 1000 ml Inj) 1,000 ml @ 125 mls/hr Q8H IV Last administered on 04/04/17 16:54; Start 04/04/17 at 16:30; Stop 04/04/17 at 22:29 ; Status DC Miscellaneous Information 1 ONCE ONCE XX ; Start 04/04/17 at 16:30; Stop at 16:41; Status DC Atropine Sulfate 0.5 mg 0.5 mg UNSCH PRN IV VAGAL REPONSE; Start 04/04/17 at 16 :30 Sodium Chloride (NS 250 ml Inj) 250 ml @ 0 mls/hr UNSCH X1 PRN IV VAGAL REPONSE ; Start 04/04/17 at 16:30; Stop 04/11/17 at 16:29 Amlodipine Besylate (Norvasc) 10 mg DAILY PO Last administered on 04/05/17 09: 01; Start 04/04/17 at 16:30 Clonidine (Catapres) 0.1 mg Q6H PRN PO SBP>160, DBP>90 Last administered on 16:54; Start 04/04/17 at 16:45 A/P Assessment and Plan A/P - chest pain with history of CAD- s/p CABG and stent placement; possible recurrent angina s/p cardiac cath with: 1. Severe two-vessel coronary artery disease. 2. Right dominant system. 3. Widely patent [place] right coronary artery stents encompassing the proximal to distal vessel. 4. Patent Y-graft to the LAD and obtuse marginal. 5. Status post instant flow reserve and fractional flow reserve measurements of the vein graft to the obtuse marginal confirming the absence of hemodynamically significant disease in this vessel. 6. Mildly reduced left ventricular systolic function with ejection fraction estimated at 45% due to relatively global hypokinesis. cleared by cardiology for discharge- amlodipine will be added to his regimen. f/u as outpatient. -hypertension; on ramipril and metoprolol-amlodipine will be added as noted above. Discharge Planning dc home with f/u by pcp and cardiology. see med list. d/w the patient. Esther Cortez MD Apr 05, 2017 09:12
--- NOTE | 2017-04-05 09:13 | HHI.DS ---
Discharge Summary Admission Date Apr 03, 2017 at 05:26 Discharge Date: Apr 05, 2017 Admitting Diagnosis chest pain, nstemi (1) Chest pain ICD Code: R07.9 Diagnosis: Principal Procedures cardiac cath. Brief History - From Admission patient is a 66 y/o male with history of CAD- s/p CABG and stent, presented to ER with chest pain. it was described as chest ' pressure' with some radiation to the jaws. pain started last night when he was going to bed. pain was not associated with nausea, vomiting, sob or diaphoresis. he was pain free at the time of my evaluation. his last cardiac cath was two months ago. CBC/BMP: 04/04/17 0512 04/05/17 0502 Significant Findings Laboratory Tests Test 04/03/17 04/03/17 04/03/17 04/04/17 03:58 12:33 21:05 05:12 Hemoglobin 12.8 GM/DL 11.8 GM/DL (13.0-17.0) (13.0-17.0) Hematocrit 37.6 % 36.2 % (39.0-51.0) (39.0-51.0) Platelet Count 141 TH/MM3 123 TH/MM3 (150-450) (150-450) Eosinophils (%) (Auto) 5.3 % (0.0-4.0) 4.7 % (0.0-4.0) Activated Partial 23.1 SEC 49.7 SEC 40.0 SEC Thromboplast Time (24.3-30.1) (24.3-30.1) (24.3-30.1) Chloride Level 110 MEQ/L 111 MEQ/L (98-107) (98-107) Estimat Glomerular Filtration 56 ML/MIN (>89) 70 ML/MIN (>89) Rate Troponin I 0.60 NG/ML 0.63 NG/ML 0.68 NG/ML (0.02-0.05) (0.02-0.05) (0.02-0.05) Red Blood Count 4.42 MIL/MM3 (4.50-5.90) Mean Corpuscular Hemoglobin 26.7 PG (27.0-34.0) Calcium Level 8.2 MG/DL (8.5-10.1) Albumin 2.9 GM/DL (3.4-5.0) Test 04/04/17 04/04/17 04/05/17 07:19 14:29 05:02 Activated Partial 53.7 SEC 46.9 SEC Thromboplast Time (24.3-30.1) (24.3-30.1) Estimat Glomerular Filtration 70 ML/MIN (>89) Rate Calcium Level 7.9 MG/DL (8.5-10.1) Imaging Last Impressions Chest X-Ray 04/03/17 5920 Signed Impressions: Service Date/Time: Monday, April 03, 2017 04:12 - CONCLUSION: No evidence of acute cardiopulmonary disease. Ari Gonzales MD PE at Discharge GENERAL: This is a well-nourished, well-developed patient, in no apparent distress. CARDIOVASCULAR: Regular rate and regular rhythm without murmurs, gallops, or rubs. RESPIRATORY: Clear to auscultation. Breath sounds equal bilaterally. No wheezes , rales, or rhonchi. GASTROINTESTINAL: Abdomen soft, non-tender, nondistended. Normal, active bowel sounds MUSCULOSKELETAL: Extremities without clubbing, cyanosis, or edema. NEURO: Alert & Oriented x4 to person, place, time, situation. Moves all ext x4 Hospital Course - chest pain with history of CAD- s/p CABG and stent placement; possible recurrent angina s/p cardiac cath with: 1. Severe two-vessel coronary artery disease. 2. Right dominant system. 3. Widely patent [place] right coronary artery stents encompassing the proximal to distal vessel. 4. Patent Y-graft to the LAD and obtuse marginal. 5. Status post instant flow reserve and fractional flow reserve measurements of the vein graft to the obtuse marginal confirming the absence of hemodynamically significant disease in this vessel. 6. Mildly reduced left ventricular systolic function with ejection fraction estimated at 45% due to relatively global hypokinesis. cleared by cardiology for discharge- amlodipine will be added to his regimen. f/u as outpatient. -hypertension; on ramipril and metoprolol-amlodipine will be added as noted above. Pt Condition on Discharge: Good Discharge Disposition: Discharge Home Discharge Time: <= 30 minutes Discharge Instructions DIET: Follow Instructions for: Heart Healthy Diet Activities you can perform: Regular-No Restrictions Follow up Referrals: Cardiology PCP Follow-up New Medications: Amlodipine (Norvasc) 10 Mg Tab 10 MG PO DAILY hypertension Days 30 Ref 0 TAB Continued Medications: Ascorbic Acid (Vitamin C) 1,000 Mg Tablet.er 2000 MG PO DAILY Aspirin (Aspirin) 325 Mg Tab 325 MG PO DAILY #30 Ref 0 TAB B-Complex Vitamins (Vitamin B Complex) 1 Tab 1 TAB PO DAILY Biotin (Biotin) 1,000 Mcg Tab 1000 MG PO DAILY #1 BOTTLE Fish Oil-Cholecalciferol (Bly-3 Fish Oil/Vitamin) 1,000-1,000 Mg Cap 4 CAP PO DAILY Nutritional Supplement Ref 0 CAP Metoprolol Tartrate (Metoprolol Tartrate) 100 Mg Tab 100 MG PO BID #60 Ref 0 TAB Pitavastatin (Livalo) 2 Mg Tab 2 MG PO DAILY Cholesterol Management #30 Ref 0 TAB Ramipril (Ramipril) 10 Mg Cap 10 MG PO DAILY #30 Ref 0 CAP Ticagrelor (Brilinta) 90 Mg Tab 90 MG PO BID Blood Clot Prevention #60 Ref 0 TAB Esther Cortez MD Apr 05, 2017 09:12
[2017-04-05] MEDS ORDERED: AMLO10 PO (09:14)
== END 2017-04-05 10:48 | disposition home or self-care (01) | DRG 287 ==
LOC: PHED 03:52 → PHEDA 05:26 → HIMN 07:35 → HCIS 04-04 16:33
PROVIDERS: ADMIT Internal Medicine; ATTEND Internal Medicine
PROC: B2111ZZ Fluoroscopy of Multiple Coronary Arteries using Low Osmolar Contrast (ICD-10-PCS; 2017-04-04)
PROC: B2151ZZ Fluoroscopy of Left Heart using Low Osmolar Contrast (ICD-10-PCS; 2017-04-04)
PROC: 4A033BC Measurement of Arterial Pressure, Coronary, Percutaneous Approach (ICD-10-PCS; 2017-04-04)
PROC: 4A023N7 Measurement of Cardiac Sampling and Pressure, Left Heart, Percutaneous Approach (ICD-10-PCS; principal; 2017-04-04 15:15)
DX: I25.110 Atherosclerotic heart disease of native coronary artery with unstable angina pectoris (principal); I10 Essential (primary) hypertension; I48.0 Paroxysmal atrial fibrillation; I25.2 Old myocardial infarction; M19.012 Primary osteoarthritis, left shoulder; M19.011 Primary osteoarthritis, right shoulder; M17.0 Bilateral primary osteoarthritis of knee; Z88.2 Allergy status to sulfonamides; I44.0 Atrioventricular block, first degree; I25.5 Ischemic cardiomyopathy; E78.2 Mixed hyperlipidemia; Z95.1 Presence of aortocoronary bypass graft; Z87.891 Personal history of nicotine dependence; Z86.718 Personal history of other venous thrombosis and embolism; Z95.5 Presence of coronary angioplasty implant and graft; Z79.02 Long term (current) use of antithrombotics/antiplatelets
CPT/HCPCS: 71010; 80048; 80053; 82550; 82552; 83735; 84484; 85002; 85025; 85610; 85730; 87641; 93005; 93459; 93571; C1760; C1769; C1887; C1893; G0269; J0153; J1644; J2250; J7030; Q0163; Q9967

== ENCOUNTER 2018-02-26 08:53 | Inpatient (IN) | payer MEDICARE, OTHER ==
[2018-02-26] VITALS (16 sets, daily range): BP systolic 115–178; BP diastolic 67–108; PULSE 64–142; RESP 12–18; TEMP 97.6–98.2; O2SAT 93–98
[~2018-02-26] VITALS: Ht 177.8 cm; Wt 83.1 kg
[~2018-02-26 08:53] MED LIST changes: +AMLO10 PO; +ASCO100029 PO; +ASPI-183 PO; -ASPI325T PO; +BIOT1000 PO; -METO50CR PO; +OMEGCAP PO; -RAMI10CA35 PO; -TICA90 PO; +VITATAB11 PO
[2018-02-26] MEDS ORDERED: METO100T PO (09:02)
[2018-02-26] MEDS ORDERED: SIMV5TAB3 PO (09:02)
[2018-02-26 09:08] LABS: AUTOMATED NEUTROPHIL # 4.7 TH/MM3 (1.8-7.7); BASOPHIL # 0.3 TH/MM3 (0-0.2); BASOPHIL % 4.4 % (0.0-2.0); EOSINOPHIL # 0.2 TH/MM3 (0-0.4); EOSINOPHIL % 3.4 % (0.0-4.0); HEMATOCRIT 44.1 % (39.0-51.0); HEMOGLOBIN 15.1 GM/DL (13.0-17.0); LYMPH % 18.8 % (9.0-44.0); LYMPHOCYTE # 1.3 TH/MM3 (1.0-4.8); MEAN CELL VOLUME 81.5 FL (80.0-100.0); MEAN CORPUSCULAR HGB CONC 34.4 % (32.0-36.0); MONO % 6.2 % (0.0-8.0); MONOCYTE # 0.4 TH/MM3 (0-0.9); NEUT % 67.2 % (16.0-70.0); PLATELET COUNT 155 TH/MM3 (150-450); WHITE BLOOD COUNT 6.9 TH/MM3 (4.0-11.0)
--- NOTE | 2018-02-26 09:15 | PD ---
HPI Chief Complaint: Chest Pain Time Seen by Provider: 09:06 Travel History International Travel<30 days: No Contact w/Intl Traveler<30days: No Traveled to known affect area: No History of Present Illness HPI 67yo M with PMH of CAD s/p CABG and cardiac stent, paroxysmal afib on aspirin, HTN, HLD presents to the ED with c/o chest discomfort for 1.5 weeks. Said it is midsternal, radiates up neck and bilateral proximal shoulders. Chest pain is dull, intermittent and mild in severity about 1-2 out of 10. Chest discomfort is worst with standing but not walking and better with sitting. Occasional sob. Denies any fever, diaphoresis, n/v, abdominal pain, focal weakness or numbness. Pt follows with Dr. Wright and said he has not had a stress test for a while but is due for 1 next month. Pt last had cardiac cath that showed severe 2 vessel disease with LV ejection 45% and global hypokinesis. Pt took his aspirin today. PFSH Past Medical History Hx Anticoagulant Therapy: Yes Arthritis: Yes (bilateral knees, bilateral shoulders ) Asthma: No Atrial Fibrillation: Yes (2013) Autoimmune Disease: No Blood Disorders: No Anxiety: No Depression: No Heart Rhythm Problems: Yes (controlled A-fib ) Cancer: No Cardiac Catheterization: Yes (X3 TOTAL (LAST ONE: JANUARY 22, 2017)) Cardiovascular Problems: Yes ([place], CABG x 3, stents x 4, DVT post knee surgery. ) High Cholesterol: Yes Chemotherapy: No Chest Pain: Yes COPD: No Coronary Artery Disease: Yes Diabetes: No Diminished Hearing: No Deep Vein Thrombosis: Yes (CLOT RIGHT KNEE POST-OP KNEE SURGERY) Endocrine: No GERD: Yes Genitourinary: No Hiatal Hernia: No Hypertension: Yes Immune Disorder: No Musculoskeletal: Yes (bilateral knee repair, right rotator cuff surgery. ) Neurologic: No Psychiatric: No Reproductive: No Respiratory: No Migraines: No Myocardial Infarction: Yes Radiation Therapy: No Seizures: No Sickle Cell Disease: No Sleep Apnea: No Thyroid Disease: No Ulcer: No Tetanus Vaccination: < 5 Years Influenza Vaccination: Yes Past Surgical History Abdominal Surgery: Yes (RIGHT INGUINAL Hernia repair: 2012) AICD: No Arteriovenous Shunt: No Cardiac Surgery: Yes (CABG X 3) Coronary Artery Bypass Graft: Yes (3 VESSEL: OCT 18, 2005) Coronary Stent: Yes (X4 TOTAL) Ear Surgery: No Endocrine Surgery: No Eye Surgery: No Genitourinary Surgery: No Insulin Pump: No Joint Replacement: Yes Oral Surgery: No Pacemaker: No Other Surgery: Yes (Right hernia repair, bilateral knee repair, right rotator cuff repair ) Social History Alcohol Use: No Tobacco Use: No Substance Use: No Allergies-Medications (Allergen,Severity, Reaction): Coded Allergies: Sulfa (Sulfonamide Antibiotics) (Verified Allergy, Intermediate, Hives, itching , 02/26/18) Reported Meds & Prescriptions Reported Meds & Active Scripts Active Reported Aspirin 325 Mg Tab 325 Mg PO DAILY Simvastatin 5 Mg Tab 5 Mg PO DAILY Metoprolol Tartrate 100 Mg Tab 100 Mg PO DAILY Ramipril 10 Mg Cap 10 Mg PO BID Brilinta (Ticagrelor) 90 Mg Tab 90 Mg PO BID Review of Systems Except as stated in HPI: all other systems reviewed are Neg Physical Exam Narrative GENERAL: 67yo M in mild distress. SKIN: Focused skin assessment warm/dry. HEAD: Atraumatic. Normocephalic. EYES: Pupils equal and round. No scleral icterus. No injection or drainage. ENT: No nasal bleeding or discharge. Mucous membranes pink and moist. NECK: Trachea midline. No JVD. CARDIOVASCULAR: Regular rate and rhythm. No murmur appreciated. RESPIRATORY: No accessory muscle use. Clear to auscultation. Breath sounds equal bilaterally. GASTROINTESTINAL: Abdomen soft, non-tender, nondistended. MUSCULOSKELETAL: No obvious deformities. No clubbing. No cyanosis. Trace bilateral lower edema. NEUROLOGICAL: Awake and alert. No obvious cranial nerve deficits. Motor grossly within normal limits. Normal speech. PSYCHIATRIC: Appropriate mood and affect; insight and judgment normal. Data Data Last Documented VS Vital Signs Date Time Temp Pulse Resp B/P (MAP) Pulse Ox O2 Delivery O2 Flow Rate FiO2 02/26/18 11:00 69 12 149/94 (112) 97 Room Air 02/26/18 09:00 97.8 Orders Orders Electrocardiogram (02/26/18 08:57) Complete Blood Count With Diff (02/26/18 08:57) Basic Metabolic Panel (Bmp) (02/26/18 08:57) Ckmb (Isoenzyme) Profile (02/26/18 08:57) Troponin I (02/26/18 08:57) Chest, Single Ap (02/26/18 08:57) Iv Access Insert/Monitor (02/26/18 08:57) Ecg Monitoring (02/26/18 08:57) Oxygen Administration (02/26/18 08:57) Oximetry (02/26/18 08:57) Prothrombin Time / Inr (Pt) (02/26/18 08:57) Act Partial Throm Time (Ptt) (02/26/18 08:57) Nitroglycerin Sl (Nitrostat Sl) (02/26/18 09:15) CKMB (02/26/18 09:00) CKMB% (02/26/18 09:00) Sodium Chloride 0.9% Flush (Ns Flush) (02/26/18 21:00) Sodium Chloride 0.9% Flush (Ns Flush) (02/26/18 10:30) Financial Service Professional / Telemetry FAY.Q8H (02/26/18 10:23) Heparin Inj (Heparin Inj) (02/26/18 16:30) Heparin Inj (Heparin Inj) (02/26/18 16:30) Heparin-D5w 25,000 U/250 Ml (Heparin-D5w (02/26/18 10:30) Cbc No Diff, Includes Plts (03/01/18 06:00) Act Partial Throm Time (Ptt) (02/26/18 17:00) Admit Order (Ed Use Only) (02/26/18 11:12) Consult Cardiology (02/26/18 ) Labs Laboratory Tests Test 02/26/18 09:00 White Blood Count 6.9 TH/MM3 Red Blood Count 5.40 MIL/MM3 Hemoglobin 15.1 GM/DL Hematocrit 44.1 % Mean Corpuscular Volume 81.5 FL Mean Corpuscular Hemoglobin 28.0 PG Mean Corpuscular Hemoglobin Concent 34.4 % Red Cell Distribution Width 14.0 % Platelet Count 155 TH/MM3 Mean Platelet Volume 9.0 FL Neutrophils (%) (Auto) 67.2 % Lymphocytes (%) (Auto) 18.8 % Monocytes (%) (Auto) 6.2 % Eosinophils (%) (Auto) 3.4 % Basophils (%) (Auto) 4.4 % Neutrophils # (Auto) 4.7 TH/MM3 Lymphocytes # (Auto) 1.3 TH/MM3 Monocytes # (Auto) 0.4 TH/MM3 Eosinophils # (Auto) 0.2 TH/MM3 Basophils # (Auto) 0.3 TH/MM3 CBC Comment DIFF FINAL Differential Comment Prothrombin Time 10.2 SEC Prothromb Time International Ratio 1.0 RATIO Activated Partial Thromboplast Time 28.5 SEC Blood Urea Nitrogen 21 MG/DL Creatinine 1.40 MG/DL Random Glucose 94 MG/DL Calcium Level 9.2 MG/DL Sodium Level 141 MEQ/L Potassium Level 4.1 MEQ/L Chloride Level 110 MEQ/L Carbon Dioxide Level 22.4 MEQ/L Anion Gap 9 MEQ/L Estimat Glomerular Filtration Rate 51 ML/MIN Total Creatine Kinase 131 U/L Creatine Kinase MB 3.3 NG/ML Creatine Kinase MB % 2.5 % Troponin I 2.13 NG/ML [facility] Medical Decision Making Medical Screen Exam Complete: Yes Emergency Medical Condition: Yes Differential Diagnosis EKG: Atrial flutter at 63bpm. LAD. 1mm ST elevation V2, V3. No reciprocal changes. Narrative Course 67yo M with significant cardiac history here with chest discomfort for 1.5 weeks. It is very mild and pt is also mildly hypertensive. Said he took his blood pressure medications. Pt already took aspirin so will give sublingual nitro. Will obtain cardiac enzymes and CXR. Labs reviewed, no leukocytosis. Troponin elevated at 2.13. Pt's chest pain improved after nitro but still feel about 1 out of 10 pain more radiating from upper chest to his neck. BP improve after nitro. Pt denies any blood in stool or black stool. Denies bleeding. Pt started on heparin drip for NSTEMI. I discussed case with pt's residential installer Dr. Wright and he agrees with plan and to transfer pt to [facility] for cardiac cath. Discussed with hospitalist Dr. Gunderson and accepted to her service. Critical Care Narrative Aggregate critical care was 50 minutes. Time to perform other separately billable procedures was not included in the critical care time. My time did not include minutes spent treating any other patients simultaneously or on activities that did not directly contribute to the patient's treatment. The services I provided to this patient were to treat and/or prevent clinically significant deterioration that could result in: Cardiovascular collapse or . I provided critical care services requiring my management, as noted below: Chart data review, documentation time, medication orders and management, vital sign assessments/reviewing monitor data, ordering and reviewing lab tests, ordering and interpreting/reviewing x- rays and diagnostic studies, care of the patient and discussion of the patient with the admitting physicians. Diagnosis Primary Impression: NSTEMI (non-ST elevated myocardial infarction) Admitting Information Admitting Physician Requests: Caitie Pascual DO February 26, 2018 09:15
[2018-02-26] MEDS: NITROGLYCERIN 0.4 MG SL 25 TABS/BTL SL PRN ×3 (09:21→10:10)
--- NOTE | 2018-02-26 09:25 | RADRPT ---
EXAM DATE/TIME: 02/26/2018 09:02 [facility] COMPARISON: CHEST SINGLE AP, February 22, 2016, 11:11. CHEST SINGLE AP, April 03, 2017, 4:12. INDICATIONS : Chest pain. MEDICAL HISTORY : Hypertension. SURGICAL HISTORY : CABG. Coronary artery stent. ENCOUNTER: Initial ACUITY: 1 week PAIN SCORE: 2/10 LOCATION: Bilateral chest FINDINGS: The heart is mildly enlarged. The patient is post median sternotomy. The mediastinal contours are wit hin normal limits. The pulmonary parenchyma demonstrates a partially calcified mass in the lateral ma rgin of the right upper lung field measuring 2.8 x 2.6 cm. This has been stable compared back to a pr evious chest x-ray dated 02/22/16. The left lung is clear. The visualized bony structures are intact. CONCLUSION: 1. 2.8 x 2.6 cm partially calcified mass in the lateral margin of the right lung stable compared to p revious dated 02/22/16. Randolph Mascorro MD on February 26, 2018 at 9:20 Board Certified Radiologist. This report was verified electronically.
[2018-02-26 09:56] LABS: CALCIUM 9.2 MG/DL (8.5-10.1)
[2018-02-26 09:57] LABS: BICARBONATE 22.4 MEQ/L (21.0-32.0)
[2018-02-26 10:00] LABS: CREATININE 1.4 MG/DL (0.60-1.30)
[2018-02-26 10:15] LABS: PROTHROMBIN TIME - PATIENT 10.2 SEC (9.8-11.6)
[2018-02-26 10:22] LABS: TROPONIN I 2.13 NG/ML (0.02-0.05)
[2018-02-26] MEDS ORDERED: SODIUM CHLORIDE 0.9% FLUSH 10 ML FLUSH IV FLUSH PRN ×2 (10:30→11:30)
[2018-02-26] MEDS: HEPARIN-D5W 25,000 U/250 ML 250 ML IV SCH (10:55)
[2018-02-26] MEDS ORDERED: NITROGLYCERIN 0.4 MG SL 25 TABS/BTL SL PRN (11:30)
[2018-02-26] MEDS ORDERED: MORPHINE SULFATE 4 MG/ML INJ IV PUSH PRN ×2 (11:30→18:00)
[2018-02-26] MEDS ORDERED: CLOPIDOGREL 75 MG TAB PO SCH (12:00)
[2018-02-26] MEDS ORDERED: CARVEDILOL 3.125 MG TAB PO SCH (12:00)
[2018-02-26] MEDS ORDERED: ASPI-183 PO (12:09)
[2018-02-26] MEDS ORDERED: hydrALAZINE HCL 20 MG/ML VIAL IV PUSH ONE (13:15)
--- NOTE | 2018-02-26 13:22 | HHI.HP ---
[facility] Leopoldo Jiménez MD Admission Diagnosis NSTEMI Diagnoses: Chief Complaint: Chest discomfort Travel History International Travel<30 Days: No Contact w/Intl Traveler <30 Da: No Traveled to Known Affected Are: No History of Present Illness This patient is a very pleasant 67-year-old gentleman who is still working daily and is quite active who comes in with 2 weeks of intermittent chest discomfort and tightness worse with cardiovascular exercise and improved with rest. Patient does have paroxysmal atrial fibrillation and noted increased palpitations. He has not had dizziness but notes that the chest discomfort radiates into the neck and into his shoulders. He described is mild and dull. He was quite concerned given his history of a cardiac bypass and atrial fibrillation. He came to the hospital and was found to have a elevation in the cardiac enzymes and his troponin is 2.13. On my review his EKG does show some minimal evidence of a flutter but no yossi ST elevation. He will admitted to the hospital for further evaluation of a non-ST elevation GA Review of Systems Constitutional: DENIES: Diaphoretic episodes, Fatigue, Fever, Weight gain, Weight loss, Chills, Dizziness, Change in appetite, Night Sweats Endocrine: DENIES: Heat/cold intolerance, Polydipsia, Polyuria, Polyphagia Eyes: DENIES: Blurred vision, Diplopia, Eye inflammation, Eye pain, Vision loss , Photosensitivity, Double Vision Ears, nose, mouth, throat: DENIES: Tinnitus, Hearing loss, Vertigo, Nasal discharge, Oral lesions, Throat pain, Hoarseness, Ear Pain, Running Nose, Epistaxis, Sinus Pain, Toothache, Odynophagia Respiratory: DENIES: Apneas, Cough, Snoring, Wheezing, Hemoptysis, Sputum production, Shortness of breath Cardiovascular: COMPLAINS OF: Chest pain, Palpitations, DENIES: Syncope, Dyspnea on Exertion, PND, Lower Extremity Edema, Orthopnea, Claudication Gastrointestinal: DENIES: Abdominal pain, Black stools, Bloody stools, Constipation, Diarrhea, Nausea, Vomiting, Difficulty Swallowing, Anorexia Genitourinary: DENIES: Sexual dysfunction, Urinary frequency, Urinary incontinence, Urgency, Hematuria, Dysuria, Nocturia, Penile Discharge, Testicular Pain, Testicular Swelling Musculoskeletal: DENIES: Joint pain, Muscle aches, Stiffness, Joint Swelling, Back pain, Neck pain Integumentary: DENIES: Abnormal pigmentation, Nail changes, Pruritus, Rash Immunologic/allergic: DENIES: Eczema, Urticaria Neurologic: DENIES: Abnormal gait, Headache, Localized weakness, Paresthesias, Seizures, Speech Problems, Tremor, Poor Balance Psychiatric: DENIES: Anxiety, Confusion, Mood changes, Depression, Hallucinations, Agitation, Suicidal Ideation, Homicidal Ideation, Delusions Except as stated in HPI: all other systems reviewed are Neg Past Family Social History Past Medical History Coronary artery disease Arthritis Past Surgical History Right knee, left knee, right rotator cuff Cardiac bypass, cardiac stenting Right hernial repair Reported Medications Reviewed in the EMR, nothing new Allergies: Coded Allergies: Sulfa (Sulfonamide Antibiotics) (Verified Allergy, Intermediate, Hives, itching , 02/26/18) Active Ordered Medications Reviewed in the EMR Family History Hypertension and coronary disease Social History No tobacco or alcohol dependency, works out daily, is working daily Physical Exam Vital Signs Vital Signs Date Time Temp Pulse Resp B/P (MAP) Pulse Ox O2 Delivery O2 Flow Rate FiO2 02/26/18 12:00 68 14 171/96 (121) 98 Room Air 02/26/18 11:00 69 12 149/94 (112) 97 Room Air 02/26/18 11:00 68 02/26/18 10:10 68 14 146/95 (112) 94 Room Air 02/26/18 09:45 68 14 144/94 (111) 95 Room Air 02/26/18 09:00 95 Room Air 02/26/18 09:00 82 02/26/18 09:00 95 Room Air 02/26/18 09:00 97.8 82 18 166/105 (125) 95 Physical Exam GENERAL: This is a well-nourished, well-developed patient, in no apparent distress. SKIN: No rashes, ecchymoses or lesions. Cool and dry. HEAD: Atraumatic. Normocephalic. No temporal or scalp tenderness. EYES: Pupils equal round and reactive. Extraocular motions intact. No scleral icterus. No injection or drainage. ENT: Nose without bleeding, purulent drainage or septal hematoma. Throat without erythema, tonsillar hypertrophy or exudate. Uvula midline. Airway patent. NECK: Trachea midline. No JVD or lymphadenopathy. Supple, nontender, no meningeal signs. CARDIOVASCULAR: Regular rate and rhythm without murmurs, gallops, or rubs. RESPIRATORY: Clear to auscultation. Breath sounds equal bilaterally. No wheezes , rales, or rhonchi. GASTROINTESTINAL: Abdomen soft, non-tender, nondistended. No hepato-splenomegaly , or palpable masses. No guarding. MUSCULOSKELETAL: Extremities without clubbing, cyanosis, or edema. No joint tenderness, effusion, or edema noted. No calf tenderness. Negative Homans sign bilaterally. NEUROLOGICAL: Awake and alert. Cranial nerves II through XII intact. Motor and sensory grossly within normal limits. Five out of 5 muscle strength in all muscle groups. Normal speech. Laboratory Laboratory Tests Test 02/26/18 09:00 White Blood Count 6.9 Red Blood Count 5.40 Hemoglobin 15.1 Hematocrit 44.1 Mean Corpuscular Volume 81.5 Mean Corpuscular Hemoglobin 28.0 Mean Corpuscular Hemoglobin Concent 34.4 Red Cell Distribution Width 14.0 Platelet Count 155 Mean Platelet Volume 9.0 Neutrophils (%) (Auto) 67.2 Lymphocytes (%) (Auto) 18.8 Monocytes (%) (Auto) 6.2 Eosinophils (%) (Auto) 3.4 Basophils (%) (Auto) 4.4 Neutrophils # (Auto) 4.7 Lymphocytes # (Auto) 1.3 Monocytes # (Auto) 0.4 Eosinophils # (Auto) 0.2 Basophils # (Auto) 0.3 CBC Comment DIFF FINAL Differential Comment Prothrombin Time 10.2 Prothromb Time International Ratio 1.0 Activated Partial Thromboplast Time 28.5 Blood Urea Nitrogen 21 Creatinine 1.40 Random Glucose 94 Calcium Level 9.2 Sodium Level 141 Potassium Level 4.1 Chloride Level 110 Carbon Dioxide Level 22.4 Anion Gap 9 Estimat Glomerular Filtration Rate 51 Total Creatine Kinase 131 Creatine Kinase MB 3.3 Creatine Kinase MB % 2.5 Troponin I 2.13 Result Diagram: 02/26/18 0900 02/26/18 09 Imaging Last Impressions Chest X-Ray 02/26/18 08 Signed Impressions: Service Date/Time: Monday, February 26, 2018 09:02 - CONCLUSION: 1. 2.8 x 2.6 cm partially calcified mass in the lateral margin of the right lung stable compared to previous dated 02/22/16. Randolph Mascorro MD Septic Shock Reassessment Septic shock perfusion: reassessment completed Caprini VTE Risk Assessment Caprini VTE Risk Assessment: Mod/High Risk (score >= 2) Caprini Risk Assessment Model Point Value = 1 Point Value = 2 Point Value = 3 Point Value = 5 Age 41-60 Minor surgery BMI > 25 kg/m2 Swollen legs Varicose veins or History of unexplained or recurrent spontaneous Oral contraceptives or hormone replacement Sepsis (< 1 month) Serious lung disease, including pneumonia (< 1 month) Abnormal pulmonary function Acute myocardial infarction Congestive heart failure (< 1 month) History of inflammatory bowel disease Medical patient at bed rest Age 61-74 Arthroscopic surgery Major open surgery (> 45 min) Laparoscopic surgery (> 45 min) Malignancy Confined to bed (> 72 hours) Immobilizing plaster cast Central venous access Age >= 75 History of VTE Family history of VTE Factor V Leiden Prothrombin [id number] Lupus anticoagulant Anticardiolipin antibodies Elevated serum homocysteine Heparin-induced thrombocytopenia Other congenital or acquired thrombophilia Stroke (< 1 month) Elective arthroplasty Hip, pelvis, or leg fracture Acute spinal cord injury (< 1 month) Prophylaxis Regimen Total Risk Factor Score Risk Level Prophylaxis Regimen 0-1 Low Early ambulation 2 Moderate Order ONE of the following: *Sequential Compression Device (SCD) *Heparin 5000 units SQ BID 3-4 Higher Order ONE of the following medications: *Heparin 5000 units SQ TID *Enoxaparin/Lovenox 40 mg SQ daily (WT < 150 kg, CrCl > 30 mL/min) *Enoxaparin/Lovenox 30 mg SQ daily (WT < 150 kg, CrCl > 10-29 mL/min) *Enoxaparin/Lovenox 30 mg SQ BID (WT < 150 kg, CrCl > 30 mL/min) AND/OR *Sequential Compression Device (SCD) 5 or more Highest Order ONE of the following medications: *Heparin 5000 units SQ TID (Preferred with Epidurals) *Enoxaparin/Lovenox 40 mg SQ daily (WT < 150 kg, CrCl > 30 mL/min) *Enoxaparin/Lovenox 30 mg SQ daily (WT < 150 kg, CrCl > 10-29 mL/min) *Enoxaparin/Lovenox 30 mg SQ BID (WT < 150 kg, CrCl > 30 mL/min) AND *Sequential Compression Device (SCD) Assessment and Plan Problem List: (1) Calcified nodule ICD Code: R22.9 - Localized swelling, mass and lump, unspecified Plan: \patient will be admitted Continue with medical management of morphine, oxygen, nitro, aspirin, Plavix Patient does take Brilinta, metoprolol, simvastatin and ramipril which we will continue as tolerated Blood pressure has been elevated and hydralazine IV has been added (2) NSTEMI (non-ST elevated myocardial infarction) ICD Code: I21.4 - Non-ST elevation (NSTEMI) myocardial infarction Status: Resolved Plan: This appears to coincide with the right sided scapular nodule the patient has had since the 1960s. Patient is aware of these findings and periodically has them on x-ray and it does not appear to be an acute pulmonary issue. Patient will continue to follow with his primary care provider Physician Certification 2 Midnight Certification Type: Admission for Inpatient Services Order for Inpatient Services The services are ordered in accordance with Medicare regulations or non- Medicare payer requirements, as applicable. In the case of services not specified as inpatient-only, they are appropriately provided as inpatient services in accordance with the 2-midnight benchmark. Estimated LOS (days): 3 3 days is the estimated time the patient will need to remain in the hospital, assuming treatment plan goals are met and no additional complications. Post-Hospital Plan: Home Karina Gunderson MD February 26, 2018 13:22
[2018-02-26] MEDS ORDERED: MIDAZOLAM HCL 2 MG/2 ML VIAL IV PUSH SCH (14:15)
[2018-02-26] MEDS ORDERED: DIAZEPAM 10 MG TAB PO SCH (14:15)
[2018-02-26] MEDS ORDERED: diphenhydrAMINE HCL 50 MG CAP PO SCH (14:15)
[2018-02-26] MEDS ORDERED: HEPARIN SODIUM - IV 10,000 UNITS/10 ML VIAL IV PUSH PRN ×2 (16:30)
[2018-02-26 16:38] LABS: TROPONIN I 2.29 NG/ML (0.02-0.05)
--- NOTE | 2018-02-26 18:31 | EKG ---
Date Performed: 02/26/2018 Time Performed: 09:00:00 PTAGE: 67 years EKG: ATRIAL FLUTTER/TACHYCARDIA BORDERLINE LEFT AXIS DEVIATION MODERATE INTRAVENTRICULAR CONDUCT ION DELAY PROLONGED QT INTERVAL ABNORMAL ECG Since the PREVIOUS TRACING , no significant change noted PREVIOUS TRACIN04/03/2017 03.58 DOCTOR: Alli Heard Interpretating Date/Time 02/26/2018 18:31:11
--- NOTE | 2018-02-26 18:43 | MB ---
cc: Mando Wright MD DATE: 02/26/2018 REASON FOR CONSULTATION: Abnormal cardiac enzymes, chest pain. HISTORY OF PRESENT ILLNESS: The patient is a 67-year-old white male with a history of coronary artery disease, hypertension, hyperlipidemia, mild ischemic cardiomyopathy, paroxysmal atrial fibrillation, who presented to the hospital in [place] with an approximately one week history of intermittent midline upper chest discomfort described as "pressure" often radiating to his neck bilaterally without associated shortness of breath, nausea or diaphoresis. Initially, the chest discomforts were mild and lasted only a few minutes. However, 3 days ago, he had chest discomfort most of the day in a constant fashion. This morning he awoke with the chest discomfort, so he finally came to the Emergency Department for further evaluation and treatment. At the present time, he is resting comfortably, denying any chest pain, shortness of breath, dizziness, syncope, near syncope, palpitations, pedal edema, paroxysmal nocturnal dyspnea. He reports compliance with his medications. PAST MEDICAL HISTORY: 1. Coronary artery disease status post bypass surgery in 2005, status post stent of the distal right coronary in 2010, status post stent of the distal right coronary with a 3.0 mm Resolute on 02/23/2016 at which time he also underwent stent of the proximal to mid right coronary with a 3.5 mm x 34 mm Resolute. On 01/18/2017, he had discrete restenosis of the proximal edge of the proximal right coronary stent and he underwent repeat stenting of this region with a 3.5 mm Resolute. His last heart catheterization was 04/04/2017 showing widely patent stent sites in the right coronary, patent Y-graft to the diagonal and obtuse marginal, patent left internal mammary artery to the LAD. At that time, he did undergo fractional flow reserve measurement of the vein graft to the obtuse marginal due to a 50-65% lesion near the origin of this graft, confirming the absence of hemodynamically significant disease in this vessel. 2. Hyperlipidemia. 3. Hypertension. 4. Mild ischemic cardiomyopathy with ejection fraction of approximately 45% by cardiac catheterization on 04/04/2017. 5. Paroxysmal atrial fibrillation. CARDIAC MEDICATIONS AT HOME: 1. Brilinta 90 mg b.i.d. 1. Ramipril 10 mg b.i.d. 2. Metoprolol tartrate 100 mg daily. 3. Simvastatin 5 mg at bedtime. ALLERGIES: SULFA. FAMILY HISTORY: Noncontributory. SOCIAL HISTORY: The patient is a former smoker. There is no history of alcohol abuse. REVIEW OF SYSTEMS: As in History Of Present Illness, otherwise negative or noncontributory. He also denies headache, abdominal pain, melena, bright red blood per rectum, flu symptoms. He does have occasional "heartburn" for which he uses antacids with prompt relief. PHYSICAL EXAMINATION: VITAL SIGNS: Blood pressure 124/67 with a pulse of 76, respirations 12. GENERAL: He is a well-developed, well-nourished white male, in no acute distress. HEENT/NECK: Jugular venous pressure is normal. Carotid pulses are 2+ bilaterally and without bruits. LUNGS: Examination of the chest reveals clear lung riddle. HEART: He has a regular rhythm and rate with a grade 1/6 systolic murmur heard at the left upper sternal border. There may also be a separate grade 1/6 systolic murmur heard at the apex. No gallop is audible. ABDOMEN: On abdominal examination, he has a soft, nontender abdomen. Bowel sounds are present. There is no definite hepatosplenomegaly. EXTREMITIES: Reveals no clubbing, cyanosis or edema. Peripheral pulses are normal throughout. EKG shows atrial fibrillation/flutter, nonspecific intraventricular conduction delay. LABORATORY DATA: Includes normal CBC. Potassium 4.1, BUN 21, creatinine 1.40. Troponin 2.29. CK 131. Chest x-ray shows no acute disease. IMPRESSION: Non-ST elevation myocardial infarction, unstable angina symptoms in this 67-year-old white male with a history of coronary artery disease, hyperlipidemia, hypertension, ejection fraction 45%, paroxysmal atrial fibrillation/flutter. At this time, he is angina-free. Troponin levels are suggestive of infarct, possibly sustained 3 days ago when he had prolonged chest discomfort lasting most of the day. EKGs show no acute ST segment or T-wave changes. There is no definite evidence for congestive heart failure. With respect to his atrial fibrillation/flutter, his thromboembolic risk is overall low. As I recall, he was in atrial fibrillation/flutter on his last office visit a few months ago. RECOMMENDATIONS: 1. Cardiac catheterization tomorrow. 2. Continue his usual home cardiac medications. 3. Agree with heparin drip. MD ADRIANNA Schreiber/CHRISTOPHER , 05:50 PM , 06:42 PM [facility]
[2018-02-26] MEDS: NITROGLYCERIN 2% OINT 1 GM PACKET TOPICAL SCH ×2 (19:38→23:29)
[2018-02-26] MEDS: TICAGRELOR 90 MG TAB PO SCH (20:57)
[2018-02-26] MEDS: RAMIPRIL 5 MG CAP PO SCH (20:57)
[2018-02-26] MEDS: SODIUM CHLORIDE 0.9% FLUSH 10 ML FLUSH IV FLUSH SCH (20:58)
[2018-02-26] MEDS ORDERED: SODIUM CHLORIDE 0.9% FLUSH 10 ML FLUSH IV FLUSH SCH (21:00)
[2018-02-26] MEDS ORDERED: CALCIUM CARBONATE 500 MG CHEWABLE TAB CHEW ONE (21:15)
[2018-02-27] VITALS (31 sets, daily range): BP systolic 108–163; BP diastolic 60–97; PULSE 72–154; RESP 18–26; TEMP 97.2–98.7; O2SAT 92–99
[2018-02-27 01:03] LABS: TROPONIN I 2.17 NG/ML (0.02-0.05)
[2018-02-27] MEDS ORDERED: METOPROLOL TARTRATE 5 MG/5 ML VIAL IV PUSH ONE ×2 (03:00→22:16)
[2018-02-27] MEDS: NITROGLYCERIN 2% OINT 1 GM PACKET TOPICAL SCH ×3 (07:07→18:43)
[2018-02-27] MEDS: SODIUM CHLORIDE 0.9% FLUSH 10 ML FLUSH IV FLUSH SCH ×2 (07:27→21:00)
[2018-02-27] MEDS: SODIUM CHLOR 0.9% 1000 ML INJ 1,000 ML IV SCH ×5 (07:27→23:53)
[2018-02-27] MEDS: RAMIPRIL 5 MG CAP PO SCH (08:53)
[2018-02-27] MEDS: TICAGRELOR 90 MG TAB PO SCH (08:54)
[2018-02-27] MEDS: HEPARIN-D5W 25,000 U/250 ML 250 ML IV SCH (08:59)
[2018-02-27] MEDS ORDERED: ASPIRIN EC 325 MG TABEC PO SCH (09:00)
[2018-02-27] MEDS ORDERED: METOPROLOL SUCCINATE 50 MG EXTENDED RELEASE TAB PO SCH (09:00)
[2018-02-27] MEDS ORDERED: ATORVASTATIN 40 MG TAB PO ONE (09:15)
--- NOTE | 2018-02-27 09:16 | HHI.PR ---
Subjective Remarks Nursing reports that the patient did have tachycardia beyond the 150s over 2 occasions since last night that responded to medication. Patient himself says his chest pain/discomfort is largely unchanged since admission. Objective Vital Signs Date Time Temp Pulse Resp B/P (MAP) Pulse Ox O2 Delivery O2 Flow Rate FiO2 02/27/18 07:35 97.9 129 18 119/75 (90) 92 02/27/18 06:00 72 02/27/18 05:00 100 02/27/18 04:00 88 02/27/18 03:30 94 108/67 (81) 02/27/18 03:25 122 124/76 (92) 02/27/18 03:20 133 131/61 (84) 02/27/18 03:15 98.4 133 18 127/66 (86) 96 02/27/18 03:00 98 02/27/18 02:00 126 116/60 (78) 02/27/18 02:00 150 02/27/18 01:00 83 02/27/18 00:00 75 02/26/18 23:30 98.2 74 16 115/67 (83) 93 02/26/18 23:00 116 02/26/18 22:00 80 02/26/18 21:00 108 02/26/18 20:00 142 02/26/18 20:00 97.6 91 16 146/77 (100) 96 02/26/18 19:00 82 02/26/18 17:30 98.0 75 18 157/84 (108) 97 02/26/18 16:15 02/26/18 16:00 76 12 124/67 (86) 96 Room Air 02/26/18 15:00 72 02/26/18 15:00 94 14 135/84 (101) 97 Room Air 02/26/18 14:00 74 12 148/81 (103) 97 Room Air 02/26/18 13:00 64 14 178/108 (131) 97 Room Air 02/26/18 13:00 68 02/26/18 12:00 68 14 171/96 (121) 98 Room Air 02/26/18 11:00 69 12 149/94 (112) 97 Room Air 02/26/18 11:00 68 02/26/18 10:10 68 14 146/95 (112) 94 Room Air 02/26/18 09:45 68 14 144/94 (111) 95 Room Air I/O 02/26/18 02/26/18 02/26/18 02/27/18 02/27/18 02/27/18 07:00 15:00 23:00 07:00 15:00 23:00 Intake Total 480 ml Output Total 350 ml 700 ml Balance -350 ml -220 ml Intake Oral 480 ml Output Urine Total 350 ml 700 ml # Bowel Movements 0 Result Diagram: 02/26/18 0902/26/18 0900 A/P Assessment and Plan NSTEMI (non-ST elevated myocardial infarction) -On heparin drip, aspirin, -continue home Brilinta,, metoprolol, ramipril.Will switch simvastatin to Lipitor -Blood pressure has been elevated and hydralazine IV has been added -Cath planned today per cards chronic afib/flutter - cards managing, on metoprolol and heparin drip JEREMIAS - IVFs, bmp repeat this AM pending chronic calcified nodule - This appears to coincide with the right sided scapular nodule the patient has had since the 1960s. Patient is aware of these findings and periodically has them on x-ray and it does not appear to be an acute pulmonary issue. Patient will continue to follow with his primary care provider Christofer Varghese MD February 27, 2018 09:16
--- NOTE | 2018-02-27 09:38 | EKG ---
Date Performed: 02/26/2018 Time Performed: 16:07:49 PTAGE: 67 years EKG: ECTOPIC ATRIAL RHYTHM WITH FREQUENT VENTRICULAR PREMATURE COMPLEXES POSSIBLE LEFT ATRIAL EN LARGEMENT BORDERLINE LEFT AXIS DEVIATION MODERATE T-WAVE ABNORMALITY, CONSIDER ANTERIOR ISCHEMIA ABNO RMAL ECG Since the PREVIOUS TRACING , no significant change noted PREVIOUS TRACING DOCTOR: Marian Moss Interpretating Date/Time 02/27/2018 09:37:51
[2018-02-27] MEDS ORDERED: PNEUMOCOCCAL POLYVALENT INJ 25 MCG/0.5 ML SYR IM ONE (10:00)
[2018-02-27 11:40] LABS: BICARBONATE 24.1 MEQ/L (21.0-32.0); CALCIUM 8.3 MG/DL (8.5-10.1); CREATININE 1.33 MG/DL (0.60-1.30)
[2018-02-27] MEDS ORDERED: HEPARIN-NS/PF FLUSH BAG 2,000 ML IV FLUSH ONE (12:52)
[2018-02-27] MEDS ORDERED: MIDAZOLAM HCL 2 MG/2 ML VIAL ONE ×2 (13:23→14:25)
[2018-02-27] MEDS ORDERED: TIROFIBAN INFUSION INJ 250 ML IV ONE (14:02)
[2018-02-27] MEDS ORDERED: HEPARIN SODIUM - IV 10,000 UNITS/10 ML VIAL ONE (14:05)
--- NOTE | 2018-02-27 14:55 | PD.CARD.PN ---
Subjective Subjective Remarks No further CP. No dyspnea, palpitations, dizziness. Objective Medications Item Value Date Time Tirofiban/Sodium 250 ml @ 15.48 mls/hr 02/22/16 1300 Chloride CONTINUOUS WT BASED/IV 02/23/16 0539 Amiodarone HCl 200 mg 01/18/17 1800 (Cordarone) DAILY@18/PO Tirofiban/Sodium 250 ml @ 15.66 mls/hr 01/18/17 1701 Chloride [id number] 01/19/17 0516 Metoprolol 100 mg 01/18/17 0900 Tartrate BID/PO 01/18/17 2051 (Lopressor) Ramipril 10 mg 01/18/17 0900 (Altace) DAILY/PO 01/18/17 1020 Atorvastatin 40 mg 02/28/18 2100 Calcium HS/PO (Lipitor) Aspirin 325 mg 02/27/18 0900 (Ecotrin Ec) DAILY/PO 02/27/18 0853 Metoprolol 100 mg 02/27/18 0900 Succinate DAILY/PO 02/27/18 0724 (Toprol Xl) Ticagrelor 90 mg 02/26/18 2100 (Brilinta) BID/PO 02/27/18 0854 Ramipril 10 mg 02/26/18 2100 (Altace) BID/PO 02/27/18 0853 Nitroglycerin 1 inch 02/26/18 1800 (Nitroglycerin Q6HR/TOPICAL 02/27/18 0707 2% Oint) Current Medications Medications (Trade) Dose Ordered Sig/Ananda Route Start Time Stop Time Status Last Admin (Heparin Inj) 5,000 units UNSCH PRN IV PUSH 02/26/18 16:30 (Heparin Inj) 2,500 units UNSCH PRN IV PUSH 02/26/18 16:30 Heparin Sodium/ Dextrose 250 ml @ 10 mls/hr TITRATE IV 02/26/18 10:30 02/27/18 08:59 (NS Flush) 2 ml BID IV FLUSH 02/26/18 21:00 02/27/18 07:27 (NS Flush) 2 ml UNSCH PRN IV FLUSH 02/26/18 11:30 (Ecotrin Ec) 325 mg DAILY PO 02/27/18 09:00 02/27/18 08:53 (Nitrostat Sl) 0.4 mg Q5M PRN SL 02/26/18 11:30 (Morphine Inj) 2 mg Q30M PRN IV PUSH 02/26/18 11:30 (Apresoline Inj) 10 mg Q4H PRN IV PUSH 02/26/18 13:15 (Brilinta) 90 mg BID PO 02/26/18 21:00 02/27/18 08:54 Sodium Chloride 1,000 ml @ 100 mls/hr Q10H IV 02/26/18 14:13 03/03/18 14:12 02/27/18 07:27 (Benadryl) 50 mg UNIVERSITY MANAGER PO 02/26/18 14:15 03/02/18 14:14 (Valium) 10 mg UNIVERSITY MANAGER PO 02/26/18 14:15 03/02/18 14:14 (Versed Inj) 1 mg UNIVERSITY MANAGER IV PUSH 02/26/18 14:15 03/02/18 14:14 (Toprol Xl) 100 mg DAILY PO 02/27/18 09:00 02/27/18 07:24 (Altace) 10 mg BID PO 02/26/18 21:00 02/27/18 08:53 (Nitroglycerin 2% Oint) 1 inch Q6HR TOPICAL 02/26/18 18:00 02/27/18 07:07 (Morphine Inj) 4 mg Q3H PRN IV PUSH 02/26/18 18:00 (Lipitor) 40 mg HS PO 02/28/18 21:00 Vital Signs / I&O Vital Signs Date Time Temp Pulse Resp B/P (MAP) Pulse Ox O2 Delivery O2 Flow Rate FiO2 02/27/18 11:39 98.2 80 18 117/73 (88) 02/27/18 07:35 97.9 129 18 119/75 (90) 92 02/27/18 06:00 72 02/27/18 05:00 100 02/27/18 04:00 88 02/27/18 03:30 94 108/67 (81) 02/27/18 03:25 122 124/76 (92) 02/27/18 03:20 133 131/61 (84) 02/27/18 03:15 98.4 133 18 127/66 (86) 96 02/27/18 03:00 98 02/27/18 02:00 126 116/60 (78) 02/27/18 02:00 150 02/27/18 01:00 83 02/27/18 00:00 75 02/26/18 23:30 98.2 74 16 115/67 (83) 93 02/26/18 23:00 116 02/26/18 22:00 80 02/26/18 21:00 108 02/26/18 20:00 142 02/26/18 20:00 97.6 91 16 146/77 (100) 96 02/26/18 19:00 82 02/26/18 17:30 98.0 75 18 157/84 (108) 97 02/26/18 16:15 02/26/18 16:00 76 12 124/67 (86) 96 Room Air 02/26/18 15:00 72 02/26/18 15:00 94 14 135/84 (101) 97 Room Air I/O 02/26/18 02/26/18 02/26/18 02/27/18 02/27/18 02/27/18 07:00 15:00 23:00 07:00 15:00 23:00 Intake Total 480 ml 0 ml Output Total 350 ml 700 ml 600 ml Balance -350 ml -220 ml -600 ml Intake Oral 480 ml 0 ml Output Urine Total 350 ml 700 ml 600 ml # Bowel Movements 0 Physical Exam GENERAL: Well developed, well nourished. No acute distress. HEENT: Jugular venous pressure is normal. CHEST: Lungs clear to auscultation anteriorly. CARDIAC: Regular rate and rhythm without S3, S4. II/ MINERVA LUSB. ABDOMEN: Soft, nontender, no hepatosplenomegaly. Bowel sounds present. EXTREMITIES: No clubbing, cyanosis, or edema. Laboratory Laboratory Tests Test 02/26/18 16:00 02/26/18 20:43 02/27/18 00:22 02/27/18 02:42 Total Creatine Kinase 109 U/L 91 U/L Creatine Kinase MB 2.8 NG/ML Troponin I 2.29 NG/ML 2.17 NG/ML Activated Partial Thromboplast Time 42.5 SEC 45.9 SEC Test 02/27/18 10:25 Blood Urea Nitrogen 16 MG/DL Creatinine 1.33 MG/DL Random Glucose 86 MG/DL Calcium Level 8.3 MG/DL Sodium Level 140 MEQ/L Potassium Level 3.9 MEQ/L Chloride Level 108 MEQ/L Carbon Dioxide Level 24.1 MEQ/L Anion Gap 8 MEQ/L Estimat Glomerular Filtration Rate 54 ML/MIN Assessment and Plan Problem List: (1) Coronary artery disease ICD Codes: I25.10 - Atherosclerotic heart disease of [place] coronary artery without angina pectoris Status: Chronic Plan: Stable overnight. No further angina. Cath shows widely patent multiple stent sites in [place] RCA, patent GAFFNEY to LAD, new severe disease (90%) in limb of Y graft to diagonal/obtuse marginal going to OM. This region stented today. REC check echo overnight observation (2) Paroxysmal atrial fibrillation ICD Codes: I48.0 - Paroxysmal atrial fibrillation Status: Chronic Plan: Remains in an atrial fib/flutter. Has been largely chronic past few months. Thromboembolic risk overall low. Rec continue daily aspirin. (3) Hyperlipidemia ICD Codes: E78.5 - Hyperlipidemia, unspecified Status: Chronic Plan: Continue statin therapy. Followed as outpatient. (4) Hypertension ICD Codes: I10 - Essential (primary) hypertension Status: Chronic Plan: Stable. Normotensive. Code Status full code Discussed Condition With patient Problem Qualifiers (1) Coronary artery disease: Qualified Codes: I25.110 - Atherosclerotic heart disease of [place] coronary artery with unstable angina pectoris (2) Hyperlipidemia: Qualified Codes: E78.2 - Mixed hyperlipidemia (3) Hypertension: Qualified Codes: I10 - Essential (primary) hypertension Mando Wright MD February 27, 2018 14:55
[2018-02-27] MEDS ORDERED: TEMAZEPAM 15 MG CAP PO PRN (15:00)
--- NOTE | 2018-02-27 15:03 | CATHPROC ---
[email or web address] HIS Report Study Information Study Number Admission Scheduled Start Study Start [id number] Feb 26 2018 11:14AM 02/26/2018 Feb 27 2018 1:23PM [place] [facility] Cardiac Catheterization Admit Source Facility Department Other [facility] - Data Analyst Physician and Clinical Staff Initial Mando Ocampo Proposal Director [place] RN, Danilo Recorder Aminta Gamboa ,RT(R) ScrTeri Martin,INSURANCE SALESPERSON TECH2 Procedures Performed Procedure Location (Site) Vessel Name Coronary Angiograms LCA Left Coronary Coronary Angiograms RCA Right Coronary Coronary Angiograms GAFFNEY-LAD Left Coronary Drug Eluting Inflatio SVG-OM CIRC L Heart Cath PTCA SVG-OM CIRC Wire insertion Fem Art (right) Femoral Art Equipment 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 150CM Used ANGLED GLIDE *[id number] 13:33 MEDLINE INDUSTRIES PACK, CCL CUSTOM * Used *[id number] 13:33 MEDLINE PACER PEN, SKIN DUAL W/ RULER * Used *[id number] BALLOON, 2.25 X 10MM [id number] 14:14 MEDTRONIC 10MM Used EUPHORA *[id number] BALLOON, 2.25 X 12MM NC [id number] 14:21 MEDTRONIC 12MM Used EUPHORA *[id number] 14:30 MEDTRONIC STENT, 2.25 22MM KIMBERLEE 2.25 22MM [id number] Used [id number] 14:16 [employer] 30 MICAH INDEFLATOR Used *[id number] 13:33 [employer] MEDICAL SHEATH, FR6.5 PRELUDE 11CM FR 6.5 038ACT Used *[id number] 13:33 [employer] MEDICAL WIRE, 3MMJ .035 180CM 180CM Used *[id number] 13:53 [employer] MEDICAL WIRE, EXCHANGE 260CM 3MMJ 260CM Used *[id number] 13:33 NAMIC MANIFOLD, 4 PORT * Used *[id number] 13:33 NYCOMED OMNIPAQUE, 350 MG, 150ML 150ML [id number] Used [id number] 13:33 [employer] BLANKET,WARM AIR CCL * Used *[id number] Equipment Model, Serial, Lot Number and Expiration Data Description Model Number Serial Number Lot Number Expiration Date STENT, 2.25 22MM KIMBERLEE [id number] 09-13-2019 WIRE, HYDROSTEER 150CM [id number] 05-15-2020 ANGLED GLIDE History: Current Medications Medication Dosage/Unit Route Frequency Last Date/Time Taken Beta Sharon Statins (any) History: Allergies Allergy Reaction Sulfa HIVES,ITCHING Sulfa (Sulfonamide Antibiotics) Hives, itching History: Risk Factors Family History of Hypertension Dyslipidemia Previous [place] Previous Heart Failure Premature CAD Yes Yes No Yes No Prior Valve Prior PCI Prior PCIDate Prior CABG Prior CABGDate Surgery No Yes 01/18/2017 Yes 10/16/2005 Cerebrovascular Peripheral Artery Chronic Lung On Dialysis Diabetes Disease Disease Disease No No No No No History: Symptoms/Diagnosis Selection Items Chest pain History: Stress Tests Stress or Imaging Studies Performed No History: Other Current Smoker No Labs Hgb (g/dl) Hct (%) WBC (l/cumm) Platelets (thousands) 11.60-17.00 35.00-51.00 4.00-11.00 150.00-450.00 15.1 44.1 6.9 155 Glucose (mg/dl) BUN (mg/dl) Creatinine (mg/dl) BUN:Creatinine (1:x) 74.00-106.00 7.00-18.00 0.50-1.30 10.00-20.00 94 21 1.4 15 Na (meq/l) K (meq/l) 136.00-145.00 3.50-5.10 141 4.1 INR (PTT:PT) 0.90-1.10 1 Troponin I (ng/ml) CPK (u/l) CPK-MB (ng/ML) 0.02-0.05 26.00-308.00 0.50-3.60 2.17 91 2.8 Medication Medication Total Dose (Bolus/Oral) Medication Total Dosage/Unit 1% XYLOCAINE 15 mL AGGRASTAT BOLUS 42 mL FENTANYL 100 mcg HEPARIN 6000 units NTG (IC) 500 mcg VERSED 4 mg Medications (Bolus/Oral) Medication Time Given Dosage/Unit Administered By Reason VERSED 02/27/2018 1:48:38 PM 2 mg Danilo Goff RN 2 mg VERSED given in lab by Danilo Goff RN in Right Antecubital via Peripheral IV. Ordered by Mando Wright. 1% XYLOCAINE 02/27/2018 1:48:47 PM 15 mL Mando Wright 15 mL 1% XYLOCAINE given in lab by Mando Wright in Right Groin via Subcutaneous. Ordered by Prince Wright enn. FENTANYL 02/27/2018 1:50:12 PM 50 mcg Danilo Goff RN 50 mcg FENTANYL given in lab by Danilo Goff RN in Right Antecubital via Peripheral IV. Ordered by Mando Dunham. AGGRASTAT BOLUS 02/27/2018 2:04:50 PM 42 mL Danilo Goff RN 42 mL AGGRASTAT BOLUS given in lab by Danilo Goff RN via Peripheral IV. Ordered by Mando Wright. HEPARIN 02/27/2018 2:05:14 PM 6000 units Danilo Goff RN 6000 units HEPARIN given in lab by Danilo Goff RN via Peripheral IV. Ordered by Mando Wright. NTG (IC) 02/27/2018 2:25:24 PM 100 mcg Mando Wright 100 mcg NTG (IC) given in lab by Mando Wright via Intra-coronary. Ordered by Mando Wright. VERSED 02/27/2018 2:25:41 PM 2 mg Danilo Goff RN 2 mg VERSED given in lab by Danilo Goff RN via Peripheral IV. Ordered by Mando Wright. NTG (IC) 02/27/2018 2:26:29 PM 100 mcg Mando Wright 100 mcg NTG (IC) given in lab by Mando Wright via Intra-coronary. Ordered by Mando Wright. NTG (IC) 02/27/2018 2:26:53 PM 100 mcg Mando Wright 100 mcg NTG (IC) given in lab by Mando Wright via Intra-coronary. Ordered by Mando Wright. NTG (IC) 02/27/2018 2:28:55 PM 100 mcg Mando Wright 100 mcg NTG (IC) given in lab by Mando Wright via Intra-coronary. Ordered by Mando Wright. FENTANYL 02/27/2018 2:29:14 PM 50 mcg Danilo Goff RN 50 mcg FENTANYL given in lab by Danilo Goff RN via Peripheral IV. Ordered by Mando Wright. NTG (IC) 02/27/2018 2:33:49 PM 100 mcg Mando Wright 100 mcg NTG (IC) given in lab by Mando Wright via Intra-coronary. Ordered by Mando Wright. Medication (Drip) Medication Time Given Dosage/Unit Concentration/Unit Diluent (ml) Solution AGGRASTAT DRIP 02/27/2018 2:10:26 PM 0.074 mcg/kg/min 12.5 mg 250 NaCl .9 0.074 mcg/kg/min AGGRASTAT DRIP given in lab by Danilo Goff RN via Peripheral IV. Pump/Drip Flow = 7 .4 ml/hr using NaCl .9 with a concentration of 12.5 mg in 250 ml. Ordered by Mando Wright. IV Solutions 02/27/2018 1:23:29 PM 50 mL (IV) NaCl .9 Patient arrived on IV Solutions in Right Antecubital via Peripheral IV. Pump/Drip Flow using NaCl .9. Initial Case Assessment Cardiovascular HR Rhythm NIBP Chest Pain 81 sr 136/90 0 Edema Present Skin color Skin None Normal Warm Dry Circulatory - Right Pulses Dorsalis Pedis Femoral 2 3 Scale (0,1,2,3,4,d) Circulatory - Left Pulses Dorsalis Pedis Femoral 2 3 Scale (0,1,2,3,4,d) Circulatory - Lower Extremities Color Lower Right Color Lower Left Normal Normal Neurological State Oriented to time-place- Alert Moves all extremities person Respiration - General Respiration Rate SpO2 (%) (B/min) 22 94 Final Case Assessment Cardiovascular HR Rhythm NIBP Chest Pain 81 sr 136/90 0 Edema Present Skin color Skin None Normal Warm Dry Circulatory - Right Pulses Dorsalis Pedis Femoral 2 3 Scale (0,1,2,3,4,d) Circulatory - Left Pulses Dorsalis Pedis Femoral 2 3 Scale (0,1,2,3,4,d) Circulatory - Lower Extremities Color Lower Right Color Lower Left Normal Normal Neurological State Oriented to time-place- Alert Moves all extremities person Respiration - General Respiration Rate SpO2 (%) (B/min) 22 94 Chronological Log Time Study Chronological Log 13:16:14 Patient Name, D.O.B, / Armband Verified By R.N. 13:23:09 Patient arrived via Bed. Vitals capture started with the following parameters, Patient=Adult, Interval=5 min, Initial Pr wvstii=280 mmHg, 13:23:17 Deflation Rate=5 mmHg, Cuff placed on Left Arm 13:23:18 Consent signed by the physician and the patient and verified by the Data Analyst staff. 13:23:19 Pre-op and post- op instructions given; patient acknowledges understanding of instructions. 13:23:19 Verbal Stimulation=2 Physical Stimulation=2 Airway=2 Respiration=2 TOTAL=8. (0=absent, 1=li mited, 2=present) 13:23:23 Patient has been NPO for More than 6Hrs. 13:23:24 Skin Breakdown- none per patient 13:23:25 Patient Warmer Placed on the Table. 13:23:26 Berry Prominences Protected 13:23:29 A # 20 IV was noted in the Antecubital (right). Grade = 0 13:23:29 Patient arrived on IV Solutions in Right Antecubital via Peripheral IV. Pump/Drip Flow usin g NaCl .9. 13:23:30 History and physical on the chart or being dictated. Assessment: Initial Case, HR=81 BPM, Rhythm=sr, NNLH=469/90 mmhg, Chest Pain=0, Edema=None, Col or=Normal, Skin = Warm, Dry Right Pulses: Jesse Ped=2, Femoral=3 Left Pulses: Jesse Ped=2, Femoral=3 13:23:31 Lower Right Extremities: Color=Normal Lower Left Extremities: Color=Normal Neurological: State=Alert, Ox3, SANDRA Respiration: Resp=22 B/min, SpO2=94 % 13:27:42 HR=76 bpm, NALA=257/90 mmhg, SpO2=94.0 %, Resp=16 B/min, Pain=0, Yohan=10, Jeffery=2 13:28:46 Bilateral groins prepped with 2% chlorhexidine, and draped after a 3 minute waiting time. 13:29:28 Reference ECG taken 13:32:43 HR=83 bpm, ZVYP=476/91 mmhg, SpO2=96.0 %, Resp=18 B/min, Pain=0, Yohan=10, Jeffery=2 13:33:56 Pressure channel 1 zeroed. 13:34:29 MD paged 13:37:44 HR=83 bpm, VFPC=852/88 mmhg, SpO2=95.0 %, Resp=15 B/min, Pain=0, Yohan=10, Jeffery=2 13:41:06 MD responded 13:42:45 HR=97 bpm, IDOA=429/81 mmhg, SpO2=96.0 %, Resp=20 B/min, Pain=0, Yohan=10, Jeffery=2 13:44:58 MD arrived. 13:47:44 HR=81 bpm, HTVK=714/88 mmhg, SpO2=95.0 %, Resp=16 B/min, Pain=0, Yohan=10, Jeffery=2 Time Out. Correct patient, correct procedure, correct physician, power injector not loaded with contrast with surgical 13:47:52 team present. Time Out Concurred by MD and individual staff in procedure. 13:48:07 Case Start 13:48:38 2 mg VERSED given in lab by Danilo Goff RN in Right Antecubital via Peripheral IV. Ordered by Mando Wright. 13:48:47 15 mL 1% XYLOCAINE given in lab by Mando Wright in Right Groin via Subcutaneous. Ordered by Mando Wright. 13:50:12 50 mcg FENTANYL given in lab by Danilo Goff RN in Right Antecubital via Peripheral IV. Ord ered by Mando Wright. 13:50:28 Access site was Right Femoral Artery. 13:50:34 A SHEATH, FR6.5 PRELUDE 11CM FR 6.5 was advanced into the Fem Art (right) using the Percuta neous technique. A 3DRC INFINITI CATHETER FR 6 was advanced over a wire. OMNIPAQUE, 350 MG, 150ML 150ML was used for 13:52:13 injections. 13:52:45 HR=90 bpm, EUDT=906/87 mmhg, SpO2=89.0 %, Resp=9 B/min, Pain=0, Yohan=10, Jeffery=2 Recorded Pressure: Ao, HR=78, Condition=Condition 1 13:53:43 (Aorta) Ao 120/74/93 13:54:11 The RCA was injected and visualized at various angles. OMNIPAQUE, 350 MG, 150ML 150ML used . 13:55:11 The GAFFNEY-LAD was injected and visualized at various angles. OMNIPAQUE, 350 MG, 150ML 150ML used. After removing the current catheter a JL 4.0 INFINITI CATHETER FR 6 was advanced over a WIRE, E XCHANGE 260CM 13:55:46 3MMJ 260CM. 13:57:46 RE=620 bpm, TIFK=986/67 mmhg, SpO2=89.0 %, Resp=8 B/min, Pain=0, Yohan=10, Jeffery=2 13:57:51 The LCA was injected and visualized at various angles. OMNIPAQUE, 350 MG, 150ML 150ML used . 13:58:30 Catheter was removed A LCB INFINITI CATHETER FR 6 was advanced over a wire. OMNIPAQUE, 350 MG, 150ML 150ML was used for 13:58:39 injections. 14:01:19 Activated Clotting Time Drawn 14:01:21 Catheter was removed 14:02:43 HR=94 bpm, VAAX=072/72 mmhg, SpO2=92.0 %, Resp=18 B/min, Pain=0, Yohan=10, Jeffery=2 14:03:44 A AL 1 GUIDE CATHETER FR 6 was advanced over a wire. OMNIPAQUE, 350 MG, 150ML 150ML was use d for injections. 14:04:01 ACT (Normal Range 90-180) = 152 14:04:50 42 mL AGGRASTAT BOLUS given in lab by Danilo Goff RN via Peripheral IV. Ordered by Mando Wright. 14:05:14 6000 units HEPARIN given in lab by Danilo Goff RN via Peripheral IV. Ordered by Kd Wright. 14:05:35 Catheter was removed 14:07:33 A LCB GUIDE CATHETER FR 6 was advanced over a wire. OMNIPAQUE, 350 MG, 150ML 150ML was used for injections. 14:07:46 HR=83 bpm, YGIA=865/65 mmhg, SpO2=89.0 %, Resp=13 B/min, Pain=0, Yohan=10, Jeffery=2 14:08:29 A WIRE, ASAHI PROWATER 180CM 180CM was inserted via Fem Art (right). 0.074 mcg/kg/min AGGRASTAT DRIP given in lab by Danilo Goff RN via Peripheral IV. Pump/Drip Fl ow = 7.4 ml/hr 14:10: using NaCl .9 with a concentration of 12.5 mg in 250 ml. Ordered by Mando Wright. 14:11:04 The previous wire was exchanged for a WIRE, WHISPER W/HYDROCOAT 190CM 190CM. 14:11:47 Activated Clotting Time Drawn 14:12:41 HR=72 bpm, QPTG=419/70 mmhg, SpO2=94.0 %, Resp=7 B/min, Pain=0, Yohan=10, Jeffery=2 14:13:30 Interventional wire has crossed the lesion A BALLOON, 2.25 X 10MM EUPHORA 10MM was inserted over WIRE, WHISPER W/HYDROCOAT 190CM 190CM via the 14:14:44 Fem Art (right). A BALLOON, 2.25 X 10MM EUPHORA 10MM over a WIRE, WHISPER W/HYDROCOAT 190CM 190CM in the [facility] 14:15:30 was inflated using a 30 MICAH INDEFLATOR at 13 micah for 35 sec. A BALLOON, 2.25 X 10MM EUPHORA 10MM over a WIRE, WHISPER W/HYDROCOAT 190CM 190CM in the [facility]-OM 14:16:26 was inflated using a 30 MICAH INDEFLATOR at 13 micah for 30 sec. A BALLOON, 2.25 X 10MM EUPHORA 10MM over a WIRE, WHISPER W/HYDROCOAT 190CM 190CM in the [facility] 14:17:32 was inflated using a 30 MICAH INDEFLATOR at 14 micah for 30 sec. 14:17:42 HR=78 bpm, NJOR=742/80 mmhg, Resp=20 B/min, Pain=0, Yohan=10, Jeffery=2 A BALLOON, 2.25 X 10MM EUPHORA 10MM over a WIRE, WHISPER W/HYDROCOAT 190CM 190CM in the SVG-OM 14:18:38 was inflated using a 30 MICAH INDEFLATOR at 14 micah for 30 sec. 14:19:10 ACT (Normal Range 90-180) = 412 14:19:44 Balloon Removed. A BALLOON, 2.25 X 12MM NC EUPHORA 12MM was inserted over WIRE, WHISPER W/HYDROCOAT 190CM 190CM via 14:20:56 the Fem Art (right). A BALLOON, 2.25 X 12MM NC EUPHORA 12MM over a WIRE, WHISPER W/HYDROCOAT 190CM 190CM in the SVG- OM 14:22:24 was inflated using a 30 MICAH INDEFLATOR at 17 micah for 35 sec. 14:23:18 HR=87 bpm, WKGL=173/107 mmhg, SpO2=95.0 %, Resp=4 B/min, Pain=0, Oyhan=10, Jeffery=2 A BALLOON, 2.25 X 12MM NC EUPHORA 12MM over a WIRE, WHISPER W/HYDROCOAT 190CM 190CM in the SVG- OM 14:24:29 was inflated using a 30 MICAH INDEFLATOR at 17 micah for 40 sec. 14:25:24 100 mcg NTG (IC) given in lab by Mando Wright via Intra-coronary. Ordered by Mando Wright. 14:25:41 2 mg VERSED given in lab by Danilo Goff RN via Peripheral IV. Ordered by Mando Wright. A BALLOON, 2.25 X 12MM NC EUPHORA 12MM over a WIRE, WHISPER W/HYDROCOAT 190CM 190CM in the SVG- OM 14:25:53 was inflated using a 30 MICAH INDEFLATOR at 19 micah for 35 sec. 14:26:29 100 mcg NTG (IC) given in lab by Mando Wright via Intra-coronary. Ordered by Mando Wright. 14:26:53 100 mcg NTG (IC) given in lab by Mando Wright via Intra-coronary. Ordered by Mando Wright. 14:27:47 TX=666 bpm, LJWJ=607/87 mmhg, SpO2=94.0 %, Resp=9 B/min, Pain=0, Yohan=10, Jeffery=2 14:27:59 Balloon Removed. 14:28:55 100 mcg NTG (IC) given in lab by Mando Wright via Intra-coronary. Ordered by Mando Wright. 14:29:14 50 mcg FENTANYL given in lab by Danilo Goff RN via Peripheral IV. Ordered by Mando Wright. A STENT, 2.25 22MM KIMBERLEE 2.25 22MM was advanced through a LCB GUIDE CATHETER FR 6 over a WIRE, W HISPER 14:29:44 W/HYDROCOAT 190CM 190CM. A STENT, 2.25 22MM KIMBERLEE 2.25 22MM was deployed using a 30 MICAH INDEFLATOR at 14 atmospheres for 40 seconds 14:32:22 in the SVG-OM. 14:33:20 IR=408 bpm, XZXI=773/92 mmhg, SpO2=96.0 %, Resp=19 B/min, Pain=0, Yohan=10, Jeffery=2 14:33:45 Delivery device removed 14:33:49 100 mcg NTG (IC) given in lab by Mando Wright via Intra-coronary. Ordered by Mando Wright. 14:36:09 Whisper Wire removed 14:36:12 Guide Catheter was removed 14:37:16 Activated Clotting Time Drawn 14:37:21 Case End 14:38:32 HR=76 bpm, EDJJ=383/86 mmhg, SpO2=90.0 %, Resp=16 B/min, Pain=0, Yohan=10, Jeffery=2 14:39:05 VASCADE, FR6 CLOSURE SYSTEM FR 6\7 placement in the Fem Art (right) Assessment: Final Case, HR=81 BPM, Rhythm=sr, ZHHR=193/90 mmhg, Chest Pain=0, Edema=None, [place] r=Normal, Skin = Warm, Dry Right Pulses: Jesse Ped=2, Femoral=3 Left Pulses: Jesse Ped=2, Femoral=3 14:39:16 Lower Right Extremities: Color=Normal Lower Left Extremities: Color=Normal Neurological: State=Alert, Ox3, SANDRA Respiration: Resp=22 B/min, SpO2=94 % 14:39:35 Catheter(s) removed without difficulty 14:39:38 Sterile dressing applied to site 14:39:39 No case complications noted. 14:39:41 Cine recording checked. 14:39:42 Bedside Report will be given. 14:39:47 A Left Heart Cath was performed. 14:42:48 HR=90 bpm, SNGP=799/92 mmhg, SpO2=95.0 %, Resp=20 B/min, Pain=0, Yohan=10, Jeffery=2 14:47:48 ACT (Normal Range 90-180) = 397 14:47:51 HR=94 bpm, HXJC=122/97 mmhg, SpO2=94.0 %, Resp=13 B/min, Pain=0, Yohan=10, Jeffery=2 14:52:52 HR=72 bpm, UNMY=715/91 mmhg, SpO2=95.0 %, Resp=14 B/min, Pain=0, Yohan=10, Jeffery=2 14:55:39 Vitals capture stopped. 14:59:14 [facility] - Contrast Media Used In Study Contrast Total Opened (mL) Total Used (mL) Total Wasted (mL) Omnipaque 160 160 0 End Study - Maximum Contrast Load Max Contrast Load (mL) 299.7 End Study - Radiation Exposure Fluoro Time (minutes) 15.4 End Study - Sheaths Sheaths Pulled By Sheath Hold Time (min) Teri Doyle End Study - Patient Disposition Complications Transferred To Interventional Outcome No Critical Care Bed successful
--- NOTE | 2018-02-27 15:14 | MA ---
cc: Mando Wright MD DATE: 02/27/2018 DATE OF : 1950 PROCEDURE: Selective coronary and graft angiography, angioplasty and stent of the vein graft to the obtuse marginal. PROCEDURE NOTES: The patient was brought to the cardiac catheterization laboratory in a fasting state after having signed informed consent. The right groin was prepped and draped as per policy and anesthetized with 1% lidocaine. Arterial access was obtained via the right femoral artery and a 6-Sammarinese sheath placed. Coronary arteriography was performed using 6-Sammarinese Maria M left 4.0 and right progressive catheters. The left internal mammary artery graft was engaged with the progressive right catheter. The Y-graft to the diagonal and obtuse marginal was engaged with a left coronary bypass catheter. Percutaneous graft intervention was done as described below. There were no apparent immediate complications. CORONARY ARTERIOGRAPHY: The left main is a large caliber though short vessel with possibly up to 15% distal tapering. The left anterior descending is totally occluded proximally. The left circumflex is a small caliber vessel with approximately 40% stenosis proximally. There is a small caliber second obtuse marginal which appears to be totally occluded proximally. The right coronary artery is a large, dominant vessel which has a number of stents encompassing its proximal to distal portions. Overall, there are mild diffuse luminal irregularities of the stents. There may be up to 25% proximal disease in an unstented region. Two small caliber posterolateral branches have diffuse 60-70% disease proximally. The continuation of the very distal right coronary has diffuse up to 40% disease. GRAFT ANGIOGRAPHY: The left internal mammary artery to the LAD is widely patent. There is retrograde filling into a small caliber diagonal which has severe ostial and proximal disease. The mid to distal LAD appears to be normal. The Y-graft to the obtuse marginal and diagonal demonstrates a 90% lesion right at the origin of the limb to the obtuse marginal. The limb to the diagonal is widely patent. PERCUTANEOUS GRAFT INTERVENTION DESCRIPTION: Aggrastat was given as per protocol. Adequate heparin was given to achieve an ACT greater than 250 seconds. Using a 6-Sammarinese left coronary bypass guiding catheter, the ostium of the Y-graft to the obtuse marginal and diagonal was reengaged. Efforts to wire the lesion with a Prowater wire were unsuccessful. We were able to wire the stenosis easily with a Whisper wire. A number of predilations were done using a 2.25 mm Euphora balloon catheter and then a noncompliant 2.25 mm Euphora balloon catheter. Stenting was finally done using a 2.25 x 22 mm Resolute [place] stent which was deployed at 14 atmospheres for 40 seconds. Final angiography shows overall good results with reduction of the stenosis to roughly 0% residual with no definite evidence for dissection or distal embolization. The patient did develop chest pain with balloon inflations relieved by balloon deflations as well as numerous administrations of intracoronary nitroglycerin. CONCLUSIONS: 1. Severe three-vessel [place] coronary artery disease. 2. Patent left internal mammary artery to the left anterior descending. 3. Patent Y-graft to the diagonal and obtuse marginal, although with a severe lesion in the limb to the obtuse marginal, now status post angioplasty and stent of this region. 4. Widely patent numerous stent sites in the [place] right coronary, encompassing the proximal to distal vessel. DISCUSSION: The moderate to severe residual disease in the [place] posterolateral branches off the right coronary will be treated medically. These branches are of relatively small caliber. MD ADRIANNA Schreiber/CHRISTOPHER , 02:48 PM , 03:13 PM MTDD
[2018-02-27] MEDS ORDERED: IOHEXOL 350 MG/ML 100 ML BTL (for Cath Lab) OTHER ONE (18:24)
[2018-02-27] MEDS: hydrALAZINE HCL 20 MG/ML VIAL IV PUSH PRN (18:42)
[2018-02-27] MEDS ORDERED: SODIUM CHLORID 0.9% 500 ML INJ 500 ML IV ONE (20:15)
[2018-02-27] MEDS ORDERED: EPINEPHrine HCL (1:10,000) 1 MG/10 ML SYRINGE ONE (20:51)
[2018-02-27] MEDS ORDERED: TIROFIBAN INFUSION INJ 250 ML IV SCH (21:00)
--- NOTE | 2018-02-27 21:11 | PD.CONS ---
[facility] Service Critical Care Medicine Consult Requested By Primary Care Physician Leopoldo Jiménez MD History of Present Illness 67-year-old gentleman who is still working daily and is quite active admitted with 2 weeks of intermittent chest discomfort and tightness worse with cardiovascular exercise and improved with rest. Patient does have paroxysmal atrial fibrillation and noted increased palpitations. He has not had dizziness but notes that the chest discomfort radiates into the neck and into his shoulders. He was quite concerned given his history of a cardiac bypass and atrial fibrillation. He came to the hospital and was found to have a elevation in the cardiac enzymes and his troponin is 2.13. He was admitted to with a diagnosis of non-ST elevation MD. He was taken urgently to cardiac catheterization lab where he was found to have severe lesion in the limb to the obtuse marginal, which is now status post angioplasty and stent of this region. While in the CICU unit he developed sudden onset of uncontrolled tachycardia. He denies chest pain or shortness of breath. His troponins is elevated to 9. He had a stat CT of the abdomen and pelvis to rule out retroperitoneal bleed. This has been negative. Review of Systems ROS Constitutional: DENIES: Diaphoretic episodes, Fatigue, Fever, Weight gain, Weight loss, Chills, Dizziness, Change in appetite, Night Sweats Endocrine: DENIES: Heat/cold intolerance, Polydipsia, Polyuria, Polyphagia Eyes: DENIES: Blurred vision, Diplopia, Eye inflammation, Eye pain, Vision loss , Photosensitivity, Double Vision Ears, nose, mouth, throat: DENIES: Tinnitus, Hearing loss, Vertigo, Nasal discharge, Oral lesions, Throat pain, Hoarseness, Ear Pain, Running Nose, Epistaxis, Sinus Pain, Toothache, Odynophagia Respiratory: DENIES: Apneas, Cough, Snoring, Wheezing, Hemoptysis, Sputum production, Shortness of breath Cardiovascular: COMPLAINS OF: Chest pain, Palpitations, DENIES: Syncope, Dyspnea on Exertion, PND, Lower Extremity Edema, Orthopnea, Claudication Gastrointestinal: DENIES: Abdominal pain, Black stools, Bloody stools, Constipation, Diarrhea, Nausea, Vomiting, Difficulty Swallowing, Anorexia Genitourinary: DENIES: Sexual dysfunction, Urinary frequency, Urinary incontinence, Urgency, Hematuria, Dysuria, Nocturia, Penile Discharge, Testicular Pain, Testicular Swelling Musculoskeletal: DENIES: Joint pain, Muscle aches, Stiffness, Joint Swelling, Back pain, Neck pain Integumentary: DENIES: Abnormal pigmentation, Nail changes, Pruritus, Rash Immunologic/allergic: DENIES: Eczema, Urticaria Neurologic: DENIES: Abnormal gait, Headache, Localized weakness, Paresthesias, Seizures, Speech Problems, Tremor, Poor Balance Psychiatric: DENIES: Anxiety, Confusion, Mood changes, Depression, Hallucinations, Agitation, Suicidal Ideation, Homicidal Ideation, Delusions Except as stated in HPI: all other systems reviewed are Neg Past Family Social History Allergies: Coded Allergies: Sulfa (Sulfonamide Antibiotics) (Verified Allergy, Intermediate, Hives, itching , 02/26/18) Past Medical History Coronary artery disease Arthritis Paroxysmal A. fib Past Surgical History Right knee, left knee, right rotator cuff Cardiac bypass, cardiac stenting Right hernial repair Reported Medications Reported Meds & Active Scripts Active Reported Aspirin 325 Mg Tab 325 Mg PO DAILY Simvastatin 5 Mg Tab 5 Mg PO DAILY Metoprolol Tartrate 100 Mg Tab 100 Mg PO DAILY Ramipril 10 Mg Cap 10 Mg PO BID Brilinta (Ticagrelor) 90 Mg Tab 90 Mg PO BID Active Ordered Medications Current Medications Medications (Trade) Dose Ordered Sig/Ananda Route PRN Reason Start Time Stop Time Status Last Admin Dose Admin Heparin Sodium (Porcine) (Heparin Inj) 5,000 units UNSCH PRN IV PUSH APTT LESS THAN 25 02/26/18 16:30 Heparin Sodium (Porcine) (Heparin Inj) 2,500 units UNSCH PRN IV PUSH APTT 25 TO 39 02/26/18 16:30 Heparin Sodium/ Dextrose 250 ml @ 10 mls/hr TITRATE IV 02/26/18 10:30 02/27/18 08:59 Sodium Chloride (NS Flush) 2 ml BID IV FLUSH 02/26/18 21:00 02/27/18 07:27 Sodium Chloride (NS Flush) 2 ml UNSCH PRN IV FLUSH FLUSH AFTER USING IV ACCESS 02/26/18 11:30 02/27/18 18:43 Aspirin (Ecotrin Ec) 325 mg DAILY PO 02/27/18 09:00 02/27/18 08:53 Nitroglycerin (Nitrostat Sl) 0.4 mg Q5M PRN SL CHEST PAIN 02/26/18 11:30 Morphine Sulfate (Morphine Inj) 2 mg Q30M PRN IV PUSH CHEST PAIN 02/26/18 11:30 Hydralazine HCl (Apresoline Inj) 10 mg Q4H PRN IV PUSH SBP>160, DBP>90 02/26/18 13:15 02/27/18 18:42 Ticagrelor (Brilinta) 90 mg BID PO 02/26/18 21:00 02/27/18 08:54 Sodium Chloride 1,000 ml @ 100 mls/hr Q10H IV 02/26/18 14:13 03/03/18 14:12 02/27/18 15:30 Diphenhydramine HCl (Benadryl) 50 mg [employer] PO 02/26/18 14:15 03/02/18 14:14 Diazepam (Valium) 10 mg [employer]ESSOR PO 02/26/18 14:15 03/02/18 14:14 Midazolam HCl (Versed Inj) 1 mg [employer]OR IV PUSH 02/26/18 14:15 03/02/18 14:14 Metoprolol Succinate (Toprol Xl) 100 mg DAILY PO 02/27/18 09:00 02/27/18 07:24 Ramipril (Altace) 10 mg BID PO 02/26/18 21:00 02/27/18 08:53 Nitroglycerin (Nitroglycerin 2% Oint) 1 inch Q6HR TOPICAL 02/26/18 18:00 02/27/18 18:43 Morphine Sulfate (Morphine Inj) 4 mg Q3H PRN IV PUSH CHEST PAIN 02/26/18 18:00 Atorvastatin Calcium (Lipitor) 40 mg HS PO 02/28/18 21:00 Sodium Chloride 1,000 ml @ 100 mls/hr Q10H IV 02/27/18 20:00 02/28/18 19:59 Temazepam (Restoril) 15 mg HS PRN PO SLEEP 02/27/18 15:00 Family History Hypertension and coronary disease Social History No tobacco or alcohol dependency, works out daily, is working daily Physical Exam Vital Signs Vital Signs Date Time Temp Pulse Resp B/P (MAP) Pulse Ox O2 Delivery O2 Flow Rate FiO2 02/27/18 18:00 82 02/27/18 17:00 86 02/27/18 17:00 98.7 88 18 134/79 (97) 94 02/27/18 16:24 115 02/27/18 15:55 104 155/96 (115) 02/27/18 15:40 110 134/79 (97) 02/27/18 15:24 89 134/79 (97) 02/27/18 15:09 84 134/79 (97) 02/27/18 11:39 98.2 80 18 117/73 (88) 02/27/18 07:35 97.9 129 18 119/75 (90) 92 02/27/18 06:00 72 02/27/18 05:00 100 02/27/18 04:00 88 02/27/18 03:30 94 108/67 (81) 02/27/18 03:25 122 124/76 (92) 02/27/18 03:20 133 131/61 (84) 02/27/18 03:15 98.4 133 18 127/66 (86) 96 02/27/18 03:00 98 02/27/18 02:00 126 116/60 (78) 02/27/18 02:00 150 02/27/18 01:00 83 02/27/18 00:00 75 02/26/18 23:30 98.2 74 16 115/67 (83) 93 02/26/18 23:00 116 02/26/18 22:00 80 Physical Exam GENERAL: Well-nourished, well-developed patient. SKIN: Warm and dry. HEAD: Normocephalic. EYES: No scleral icterus. No injection or drainage. NECK: Supple, trachea midline. No JVD or lymphadenopathy. CARDIOVASCULAR: Regular rate and rhythm without murmurs, gallops, or rubs. Tachycardia RESPIRATORY: Breath sounds equal bilaterally. No accessory muscle use. GASTROINTESTINAL: Abdomen soft, non-tender, nondistended. MUSCULOSKELETAL: No cyanosis, or edema. BACK: Nontender without obvious deformity. NEURO EXAM: GCS: 15 Mental Status: The patient is alert and oriented to person, place, and time with normal speech. Cranial Nerves: Visual acuity intact bilaterally. Visual riddle normal in all quadrants. Pupils are round, reactive to light. Extraocular movements are intact without ptosis. Hearing is normal bilaterally. Voice is normal. Tongue protrudes midline and moves symmetrically. Reflexes: Biceps, patellar, and Achilles are 2/4 bilaterally. No clonus. Sensation: Sensation is intact bilaterally to pain and light touch. Two-point discrimination is intact. Motor: Good muscle tone. Strength is 5/5 bilaterally. Cerebellar: [id number] and [id number] test normal bilaterally. Laboratory Laboratory Tests Test 02/27/18 00:22 02/27/18 02:42 02/27/18 10:25 Total Creatine Kinase 91 Troponin I 2.17 Activated Partial Thromboplast Time 45.9 Blood Urea Nitrogen 16 Creatinine 1.33 Random Glucose 86 Calcium Level 8.3 Sodium Level 140 Potassium Level 3.9 Chloride Level 108 Carbon Dioxide Level 24.1 Anion Gap 8 Estimat Glomerular Filtration Rate 54 Result Diagram: 02/26/18 0900 02/27/18 1025 Alen Cartwright MD February 27, 2018 9:11 pm
--- NOTE | 2018-02-27 21:18 | RADRPT ---
EXAM DATE/TIME: 02/27/2018 21:05 [place] COMPARISON: CHEST SINGLE AP, February 26, 2018, 9:02. INDICATIONS : Abdominal pain post heart catherization today. ORAL CONTRAST: No oral contrast ingested. RADIATION DOSE: 12.13 CTDIvol (mGy) MEDICAL HISTORY : Myocardial infarction. Gastroesophageal reflux disease. Hypertension.DVT. SURGICAL HISTORY : CABG Coronary artery stent.Inguinal hernia repair. ENCOUNTER: Initial ACUITY: 1 day PAIN SCALE: 8/10 LOCATION: Abdomen. TECHNIQUE: Volumetric scanning of the abdomen and pelvis was performed. Using automated exposure control and ad justment of the mA and/or kV according to patient size, radiation dose was kept as low as reasonably achievable to obtain optimal diagnostic quality images. DICOM format image data is available electro nically for review and comparison. FINDINGS: LOWER LUNGS: There is a benign-appearing calcified mass in the deep soft tissues adjacent to the right scapula, th is noted on the recent chest x-ray. Visualized lungs are clear. Mild cardiac enlargement with dense c oronary calcifications present. LIVER: Homogeneous density without lesion. There is no dilation of the biliary tree. No calcified gallston es. SPLEEN: Normal size without lesion. PANCREAS: Within normal limits. KIDNEYS: Exophytic cyst arising from the lateral lower pole cortex of the left kidney. No evidence of hydronep hrosis. ADRENAL GLANDS: Within normal limits. VASCULAR: Mild aortic ectasia. Patchy atherosclerotic calcifications in aorta and branch vessels. Mild indurati on adjacent to the common femoral vessels consistent with recent catheterization. BOWEL/MESENTERY: Prominent distal colonic diverticulosis. No abnormal dilatation, wall thickening or focal inflammator y changes. ABDOMINAL WALL: Within normal limits. RETROPERITONEUM: There is no lymphadenopathy. BLADDER: No wall thickening or mass. REPRODUCTIVE: Within normal limits. INGUINAL: Mild induration adjacent to the common femoral vessels on the right consistent with recent catheteriz ation. Findings suggest hematoma, pseudoaneurysm or other significant complication. MUSCULOSKELETAL: Within normal limits for patient age. CONCLUSION: No acute CT findings in the abdomen or pelvis. Ari Beltran MD on February 27, 2018 at 21:11 Board Certified Radiologist. This report was verified electronically.
[2018-02-27 22:12] LABS: PROTHROMBIN TIME - PATIENT 10.1 SEC (9.8-11.6)
[2018-02-27 22:14] LABS: HEMATOCRIT 41.1 % (39.0-51.0); HEMOGLOBIN 13.8 GM/DL (13.0-17.0); MEAN CELL VOLUME 81.4 FL (80.0-100.0); MEAN CORPUSCULAR HEMOGLOBIN 27.4 PG (27.0-34.0); MEAN CORPUSCULAR HGB CONC 33.6 % (32.0-36.0); MEAN PLATELET VOLUME 9.1 FL (7.0-11.0); PLATELET COUNT 133 TH/MM3 (150-450); RED BLOOD COUNT 5.05 MIL/MM3 (4.50-5.90)
[2018-02-27] MEDS ORDERED: METOPROLOL TARTRATE 5 MG/5 ML VIAL ONE (22:16)
[2018-02-27 22:32] LABS: ALBUMIN 3.3 GM/DL (3.4-5.0); ALT (GPT) 31 U/L (12-78); AST (GOT) 49 U/L (15-37); BLOOD UREA NITROGEN 15 MG/DL (7-18); CALCIUM 7.9 MG/DL (8.5-10.1); CHLORIDE 107 MEQ/L (98-107); CREATININE 1.33 MG/DL (0.60-1.30); GLOMERULAR FILTRATION RATE 54 ML/MIN (>89); GLUCOSE,RANDOM 106 MG/DL (74-106); MAGNESIUM 2.2 MG/DL (1.5-2.5); PHOSPHORUS 2.2 MG/DL (2.5-4.9); SODIUM (NA) 141 MEQ/L (136-145)
[2018-02-27 22:34] LABS: ALKALINE PHOSPHATASE 65 U/L (45-117); TOTAL BILIRUBIN ADULT 0.3 MG/DL (0.2-1.0); TOTAL PROTEIN 7.1 GM/DL (6.4-8.2)
[2018-02-27] MEDS ORDERED: SODIUM CHLOR 0.9% 1000 ML INJ 1,000 ML IV ONE (22:45)
[2018-02-27] MEDS ORDERED: METOPROLOL TARTRATE 5 MG/5 ML VIAL IV PUSH PRN (22:45)
[2018-02-27] MEDS: ACETAMINOPHEN 500 MG CPLT PO PRN (23:37)
[2018-02-28] VITALS (12 sets, daily range): BP systolic 143–166; BP diastolic 76–87; PULSE 54–115; RESP 18–23; TEMP 97.4–99; O2SAT 97–100
[2018-02-28] MEDS: NITROGLYCERIN 2% OINT 1 GM PACKET TOPICAL SCH (01:30)
[2018-02-28] MEDS: RAMIPRIL 5 MG CAP PO SCH ×3 (02:57→21:25)
[2018-02-28] MEDS: TICAGRELOR 90 MG TAB PO SCH ×3 (02:57→21:24)
[2018-02-28 03:34] LABS: AUTOMATED NEUTROPHIL # 6.6 TH/MM3 (1.8-7.7); BASOPHIL % 0.4 % (0.0-2.0); EOSINOPHIL # 0.1 TH/MM3 (0-0.4); EOSINOPHIL % 1.1 % (0.0-4.0); HEMATOCRIT 39.9 % (39.0-51.0); HEMOGLOBIN 13.5 GM/DL (13.0-17.0); LYMPH % 12.9 % (9.0-44.0); LYMPHOCYTE # 1.1 TH/MM3 (1.0-4.8); MEAN CELL VOLUME 81.1 FL (80.0-100.0); MEAN CORPUSCULAR HEMOGLOBIN 27.5 PG (27.0-34.0); MEAN CORPUSCULAR HGB CONC 33.9 % (32.0-36.0); MEAN PLATELET VOLUME 8.8 FL (7.0-11.0); MONO % 8.9 % (0.0-8.0); MONOCYTE # 0.8 TH/MM3 (0-0.9); NEUT % 76.7 % (16.0-70.0); PLATELET COUNT 131 TH/MM3 (150-450); RED BLOOD COUNT 4.92 MIL/MM3 (4.50-5.90); RED CELL DISTRIBUTION WIDTH 14.7 % (11.6-17.2); WHITE BLOOD COUNT 8.6 TH/MM3 (4.0-11.0)
[2018-02-28 03:59] LABS: BICARBONATE 24.8 MEQ/L (21.0-32.0); CREATININE 1.16 MG/DL (0.60-1.30)
[2018-02-28] MEDS: hydrALAZINE HCL 20 MG/ML VIAL IV PUSH PRN (04:03)
[2018-02-28 04:25] LABS: CHOLESTEROL/ HDL RATIO 1.92 RATIO; HDL CHOLESTEROL 62.5 MG/DL (40.0-60.0)
[2018-02-28] MEDS: HEPARIN-D5W 25,000 U/250 ML 250 ML IV SCH ×2 (04:37→11:46)
[2018-02-28] MEDS: SODIUM CHLOR 0.9% 1000 ML INJ 1,000 ML IV SCH ×4 (06:00→16:13)
[2018-02-28] MEDS ORDERED: DIGOXIN 0.5 MG/2 ML VIAL IV PUSH ONE (06:45)
--- NOTE | 2018-02-28 06:48 | HHI.CCPN ---
Subjective Remarks/Hospital Course 67-year-old gentleman who is still working daily and is quite active admitted with 2 weeks of intermittent chest discomfort and tightness worse with cardiovascular exercise and improved with rest. Patient does have paroxysmal atrial fibrillation and noted increased palpitations. He has not had dizziness but notes that the chest discomfort radiates into the neck and into his shoulders. He was quite concerned given his history of a cardiac bypass and atrial fibrillation. He came to the hospital and was found to have a elevation in the cardiac enzymes and his troponin is 2.13. He was admitted to with a diagnosis of non-ST elevation TN. He was taken urgently to cardiac catheterization lab where he was found to have severe lesion in the limb to the obtuse marginal, which is now status post angioplasty and stent of this region. While in the CICU unit he developed sudden onset of uncontrolled tachycardia. He denies chest pain or shortness of breath. His troponins is elevated to 9. He had a stat CT of the abdomen and pelvis to rule out retroperitoneal bleed. This has been negative. SUBJECTIVE: 02/28: Patient resting in bed in no acute distress. Heart rate well controlled. Denies chest pain or shortness of breath. No hematoma at catheterization site. Objective Vital Signs Date Time Temp Pulse Resp B/P (MAP) Pulse Ox O2 Delivery O2 Flow Rate FiO2 02/28/18 06:00 84 02/28/18 04:00 97.8 18 166/84 (111) 99 02/26/18 16:00 Room Air Intake and Output 02/28/18 02/28/18 03/01/18 08:00 16:00 00:00 Intake Total 300 ml Output Total 750 ml Balance -450 ml Result Diagram: 02/28/18 0320 02/28/18 0320 Imaging Last Impressions Abdomen/Pelvis CT 02/27/18 0000 Signed Impressions: Service Date/Time: Tuesday, February 27, 2018 21:05 - CONCLUSION: No acute CT findings in the abdomen or pelvis. Ari Beltran MD Chest X-Ray 02/26/18 0857 Signed Impressions: Service Date/Time: Monday, February 26, 2018 09:02 - CONCLUSION: 1. 2.8 x 2.6 cm partially calcified mass in the lateral margin of the right lung stable compared to previous dated 02/22/16. Randolph Mascorro MD Objective Remarks GENERAL: 67-year-old male resting in bed in no acute distress. Well- nourished, well-developed patient. SKIN: Warm and dry. HEAD: Normocephalic. EYES: No scleral icterus. No injection or drainage. NECK: Supple, trachea midline. No JVD or lymphadenopathy. CARDIOVASCULAR: IRR. S1, S2 predose 4. 2/6 murmur systolic left upper sternal border RESPIRATORY: Breath sounds equal bilaterally. No accessory muscle use. GASTROINTESTINAL: Abdomen soft, non-tender, nondistended. Hypoactive bowel sounds are appreciated. MUSCULOSKELETAL: No significant peripheral edema. NEURO EXAM: Cranial nerves II through XII grossly intact. Strength is equal and symmetric. Normal sensation Urinary Catheter: No Assessment to: Continue Vascular Central Line Catheter: No Assessment to: Continue A/P Assessment and Plan Neuro/Psych: Acetaminophen 500 mg p.o. every 4 hours as needed headache Morphine sulfate 2-4 mg IV every 30 minutes as needed pain Temazepam 15 mg at night as needed insomnia CV: Coronary artery disease status post CABG [address] Gupta Coronary artery disease -stent/angioplasty to Y-graft to the obtuse marginal and diagonal Essential hypertension Hyperlipidemia with elevated HDL Atrial fibrillation with rapid ventricular response Elevated troponin Dr. Wright/cardiology following Currently on Ticagrelor 90 mg p.o. twice daily, aspirin 81 mg daily for stent patency. On 325 mg aspirin at home. Currently on metoprolol succinate 200 mg daily. On metoprolol tartrate 100 mg daily at home On atorvastatin 40 mg daily for dyslipidemia. On simvastatin 5 mill grams daily at home Continue ramipril 10 mg twice daily for hypertension/home medication Continue heparin drip Currently receiving as needed Lopressor for tachycardia. Will give 1 dose digoxin up to 5 mg IV 1 now. [id number] score is 4. Resp: Stable right lung calcified mass Nasal cannula to maintain saturations greater than or equal to 92% Incentive spirometry while awake Chest x-ray revealed a stable right lung mass/calcified. Recommend routine follow-up GI: Colonic diverticulosis Heart healthy diet Famotidine for GI prophylaxis Docusate sodium/senna 1 tablet twice daily for bowel regimen CT abdomen/pelvis revealed colonic diverticulosis only. No signs of bleeding. Induration at site of right femoral artery : No indication for Weathers catheter placement Endo: Sliding scale insulin if indicated to maintain euglycemia Check hemoglobin A1c and TSH Renal: Chronic kidney disease stage II Creatinine clearance currently around 60. Monitor urine output Accurate I's and O's Heme: CBC within normal limits Monitor for signs and symptomatology of bleeding. CT abdomen/pelvis revealed no retroperitoneal hematoma ID: Monitor for signs and symptomatology of infection FEN: Replace electrolytes as clinically indicated. Goal keep potassium greater than 4, magnesium greater than 2. 20 mEq KCl p.o. 1 now. MSK: OA PT evaluate and treat Access -Utilize peripheral IV. Central line if indicated Prophylaxis -GI -famotidine -DVT -SCD/heparin drip provides DVT prophylaxis Level 2 follow-up Patient is stable from a critical care medicine standpoint. We will assign care to hospitalist in a.m. 03/01. Amando Danielson MD February 28, 2018 06:48
[2018-02-28] MEDS ORDERED: POTASSIUM CHLORIDE 20 MEQ CONTROLLED RELEASE TAB PO ONE (07:00)
[2018-02-28] MEDS ORDERED: MAGNESIUM SULFATE 1 GM PREMIX 100 ML IV ONE (07:00)
[2018-02-28] MEDS ORDERED: LABETALOL HCL 100 MG/20 ML VIAL IV PUSH PRN (07:15)
[2018-02-28] MEDS ORDERED: ENALAPRILAT 2.5 MG/2 ML VIAL IV PUSH PRN (07:15)
[2018-02-28] MEDS: ACETAMINOPHEN 500 MG CPLT PO PRN (07:26)
--- NOTE | 2018-02-28 08:45 | PD.CARD.PN ---
Subjective Subjective Remarks No further CP. No dyspnea, palpitations, dizziness, groin pain, back pain. Slept well. Objective Medications Item Value Date Time Atorvastatin 40 mg 02/28/182099 Calcium HS/PO (Lipitor) Aspirin 81 mg 02/28/18 0900 (Ecotrin Ec) DAILY/PO Metoprolol 200 mg 02/28/18 0900 Succinate DAILY/PO (Toprol Xl) Ticagrelor 90 mg 02/26/182099 (Brilinta) BID/PO 02/28/18256 Ramipril 10 mg 02/26/182099 (Altace) BID/PO 02/28/18 025 Current Medications Medications (Trade) Dose Ordered Sig/Ananda Route Start Time Stop Time Status Last Admin (Heparin Inj) 5,000 units UNSCH PRN IV PUSH 02/26/18 16:30 (Heparin Inj) 2,500 units UNSCH PRN IV PUSH 02/26/18 16:30 Heparin Sodium/ Dextrose 250 ml @ 10 mls/hr TITRATE IV 02/26/18 10:30 02/28/18 04:37 (NS Flush) 2 ml BID IV FLUSH 02/26/18 21:00 02/27/18 21:00 (NS Flush) 2 ml UNSCH PRN IV FLUSH 02/26/18 11:30 02/27/18 18:43 (Nitrostat Sl) 0.4 mg Q5M PRN SL 02/26/18 11:30 (Morphine Inj) 2 mg Q30M PRN IV PUSH 02/26/18 11:30 (Brilinta) 90 mg BID PO 02/26/18 21:00 02/28/18 02:57 Sodium Chloride 1,000 ml @ 100 mls/hr Q10H IV 02/26/18 14:13 03/03/18 14:12 02/27/18 15:30 (Benadryl) 50 mg GEOLOGICAL SCOUT PO 02/26/18 14:15 03/02/18 14:14 (Valium) 10 mg GEOLOGICAL SCOUT PO 02/26/18 14:15 03/02/18 14:14 (Versed Inj) 1 mg GEOLOGICAL SCOUT IV PUSH 02/26/18 14:15 03/02/18 14:14 (Altace) 10 mg BID PO 02/26/18 21:00 02/28/18 02:57 (Morphine Inj) 4 mg Q3H PRN IV PUSH 02/26/18 18:00 (Lipitor) 40 mg HS PO 02/28/18 21:00 Sodium Chloride 1,000 ml @ 100 mls/hr Q10H IV 02/27/18 20:00 02/28/18 19:59 02/27/18 23:53 (Restoril) 15 mg HS PRN PO 02/27/18 15:00 02/27/18 23:37 (Lopressor Inj) 5 mg Q5M PRN IV PUSH 02/27/18 22:45 02/27/18 23:30 (Tylenol) 500 mg Q4H PRN PO 02/27/18 23:15 02/28/18 07:26 (Ecotrin Ec) 81 mg DAILY PO 02/28/18 09:00 (Toprol Xl) 200 mg DAILY PO 02/28/18 09:00 (Trandate Inj) 10 mg Q1H PRN IV PUSH 02/28/18 07:15 (Vasotec Inj) 2.5 mg Q6H PRN IV PUSH 02/28/18 07:15 Vital Signs / I&O Vital Signs Date Time Temp Pulse Resp B/P (MAP) Pulse Ox O2 Delivery O2 Flow Rate FiO2 02/28/18 06:00 84 02/28/18 05:00 84 02/28/18 04:00 97.8 86 18 166/84 (111) 99 02/28/18 04:00 86 02/28/18 03:00 115 02/28/18 01:00 101 161/82 (108) 02/27/18 23:30 85 147/85 (105) 02/27/18 23:30 106 140/89 (106) 02/27/18 23:00 97.6 108 19 163/79 (107) 97 02/27/18 23:00 108 02/27/18 22:30 97.2 154 26 149/95 (113) 99 02/27/18 20:00 98.3 150 18 147/97 (114) 95 02/27/18 19:00 150 02/27/18 18:55 150 02/27/18 18:54 152 02/27/18 18:50 150 02/27/18 18:45 128 02/27/18 18:40 148 02/27/18 18:35 118 02/27/18 18:00 82 02/27/18 17:00 86 02/27/18 17:00 98.7 88 18 134/79 (97) 94 02/27/18 16:24 115 02/27/18 15:55 104 155/96 (115) 02/27/18 15:40 110 134/79 (97) 02/27/18 15:24 89 134/79 (97) 02/27/18 15:09 84 134/79 (97) 02/27/18 11:39 98.2 80 18 117/73 (88) I/O 02/27/18 02/27/18 02/27/18 02/28/18 02/28/18 02/28/18 07:00 15:00 23:00 07:00 15:00 23:00 Intake Total 480 ml 0 ml 956 ml 300 ml Output Total 700 ml 600 ml 650 ml 750 ml Balance -220 ml -600 ml 306 ml -450 ml Intake Oral 480 ml 0 ml 725 ml 300 ml IV Total 231 ml Output Urine Total 700 ml 600 ml 650 ml 750 ml # Bowel Movements 0 0 Physical Exam GENERAL: Well developed, well nourished. No acute distress. HEENT: Jugular venous pressure is normal. CHEST: Lungs clear to auscultation anteriorly. CARDIAC: Regular rate and rhythm without S3, S4. I/ MINERVA LUSB. ABDOMEN: Soft, nontender, no hepatosplenomegaly. Bowel sounds present. EXTREMITIES: No clubbing, cyanosis, or edema. Right groin nontender, no hematoma. Laboratory Laboratory Tests Test 02/27/18 10:25 02/27/18 21:41 02/28/18 03:20 Blood Urea Nitrogen 16 MG/DL 15 MG/DL 13 MG/DL Creatinine 1.33 MG/DL 1.33 MG/DL 1.16 MG/DL Random Glucose 86 MG/DL 106 MG/DL 101 MG/DL Calcium Level 8.3 MG/DL 7.9 MG/DL 8.0 MG/DL Sodium Level 140 MEQ/L 141 MEQ/L 142 MEQ/L Potassium Level 3.9 MEQ/L 3.7 MEQ/L 3.9 MEQ/L Chloride Level 108 MEQ/L 107 MEQ/L 109 MEQ/L Carbon Dioxide Level 24.1 MEQ/L 28.0 MEQ/L 24.8 MEQ/L Anion Gap 8 MEQ/L 6 MEQ/L 8 MEQ/L Estimat Glomerular Filtration Rate 54 ML/MIN 54 ML/MIN 63 ML/MIN White Blood Count 7.0 TH/MM3 8.6 TH/MM3 Red Blood Count 5.05 MIL/MM3 4.92 MIL/MM3 Hemoglobin 13.8 GM/DL 13.5 GM/DL Hematocrit 41.1 % 39.9 % Mean Corpuscular Volume 81.4 FL 81.1 FL Mean Corpuscular Hemoglobin 27.4 PG 27.5 PG Mean Corpuscular Hemoglobin Concent 33.6 % 33.9 % Red Cell Distribution Width 15.0 % 14.7 % Platelet Count 133 TH/MM3 131 TH/MM3 Mean Platelet Volume 9.1 FL 8.8 FL Prothrombin Time 10.1 SEC Prothromb Time International Ratio 1.0 RATIO Fibrinogen 354 mg/dL Total Protein 7.1 GM/DL Albumin 3.3 GM/DL Phosphorus Level 2.2 MG/DL Magnesium Level 2.2 MG/DL Alkaline Phosphatase 65 U/L Aspartate Amino Transf (AST/SGOT) 49 U/L Alanine Aminotransferase (ALT/SGPT) 31 U/L Total Bilirubin 0.3 MG/DL Troponin I 9.56 NG/ML 17.70 NG/ML Neutrophils (%) (Auto) 76.7 % Lymphocytes (%) (Auto) 12.9 % Monocytes (%) (Auto) 8.9 % Eosinophils (%) (Auto) 1.1 % Basophils (%) (Auto) 0.4 % Neutrophils # (Auto) 6.6 TH/MM3 Lymphocytes # (Auto) 1.1 TH/MM3 Monocytes # (Auto) 0.8 TH/MM3 Eosinophils # (Auto) 0.1 TH/MM3 Basophils # (Auto) 0.0 TH/MM3 CBC Comment DIFF FINAL Differential Comment Activated Partial Thromboplast Time 29.4 SEC Total Creatine Kinase 387 U/L Creatine Kinase MB 41.3 NG/ML Creatine Kinase MB % 10.7 % Triglycerides Level 86 MG/DL Cholesterol Level 120 MG/DL LDL Cholesterol 40 MG/DL HDL Cholesterol 62.5 MG/DL Cholesterol/HDL Ratio 1.92 RATIO Assessment and Plan Problem List: (1) Coronary artery disease ICD Codes: I25.10 - Atherosclerotic heart disease of [place] coronary artery without angina pectoris Status: Chronic Plan: Stable overnight. No further angina. Cath yesterday showed widely patent multiple stent sites in [place] RCA, patent GAFFNEY to LAD, new severe disease (90%) in limb of Y graft to diagonal/obtuse marginal going to OM. This region stented yesterday. REC check echo move out of ICU ambulate this afternoon, possible discharge tomorrow (2) Paroxysmal atrial fibrillation ICD Codes: I48.0 - Paroxysmal atrial fibrillation Status: Chronic Plan: Remains in an atrial tachycardia/flutter. Has been largely chronic past few months. Thromboembolic risk overall low. HR's increased last night, better now on increased metoprolol dosing. REC continue aspirin add diltiazem (3) Hyperlipidemia ICD Codes: E78.5 - Hyperlipidemia, unspecified Status: Chronic Plan: Continue statin therapy. Good lipid profile this admission. (4) Hypertension ICD Codes: I10 - Essential (primary) hypertension Status: Chronic Plan: Mild to moderately hypertensive. To add diltiazem as above. Code Status full code Discussed Condition With patient Problem Qualifiers (1) Coronary artery disease: Qualified Codes: I25.110 - Atherosclerotic heart disease of [place] coronary artery with unstable angina pectoris (2) Hyperlipidemia: Qualified Codes: E78.2 - Mixed hyperlipidemia (3) Hypertension: Qualified Codes: I10 - Essential (primary) hypertension Mando Wright MD February 28, 2018 08:45
[2018-02-28] MEDS ORDERED: ASPIRIN EC 325 MG TABEC PO SCH (09:00)
--- NOTE | 2018-02-28 09:18 | ECHRPT ---
Indication: CHEST PAIN CONCLUSIONS Mild concentric left ventricular hypertrophy. The left ventricular systolic function is moderate to severely reduced with an estimated ejection fr action in the range of 35-40%. There is global left ventricular dysfunction, possible inferior akinesis. Mild mitral valve regurgitation. Trace aortic valve regurgitation. There is mild tricuspid valve regurgitation. BP: 140 / 89 HR: 106 Rhythm: Sinus MEASUREMENTS (Male / Female) Normal Values Technical Quality:Fair 2D ECHO LV Diastolic Diameter PLAX 5.5 cm 4.2 - 5.9 / 3.9 - 5.3 cm LV Systolic Diameter PLAX 4.8 cm IVS Diastolic Thickness 1.1 cm 0.6 - 1.0 / 0.6 - 0.9 cm LVPW Diastolic Thickness 0.7 cm 0.6 - 1.0 / 0.6 - 0.9 cm LV Relative Wall Thickness 0.3 RV Internal Dim ED PLAX 2.6 cm LVOT Diameter 2.9 cm Aortic Root Diameter 3.4 cm LA Systolic Diameter LX 2.8 cm 3.0 - 4.0 / 2.7 - 3.8 cm M-MODE AV Cusp Separation MM 1.6 cm DOPPLER AV Peak Velocity 170.0 cm/s AV Peak Gradient 11.6 mmHg AV Mean Gradient 6.0 mmHg AV Velocity Time Integral 27.5 cm LVOT Peak Velocity 49.3 cm/s LVOT Peak Gradient 1.0 mmHg LVOT Velocity Time Integral 7.9 cm AV Area Cont Eq vti 1.9 cm AV Area Cont Eq pk 1.9 cm Mitral E Point Velocity 77.3 cm/s LV E' Lateral Velocity 11.6 cm/s Mitral E to LV E' Lateral Ratio 6.7 LV E' Septal Velocity 6.8 cm/s Mitral E to LV E' Septal Ratio 11.4 TR Peak Velocity 297.0 cm/s TR Peak Gradient 35.3 mmHg Right Atrial Pressure 10.0 mmHg Pulmonary Artery Systolic Pressu 45.3 mmHg Right Ventricular Systolic Press 45.3 mmHg PV Peak Velocity 55.6 cm/s PV Peak Gradient 1.2 mmHg FINDINGS LEFT VENTRICLE Normal left ventricular size. Mild concentric left ventricular hypertrophy. The left ventricular systolic function is moderate to severely reduced with an estimated ejection fr action in the range of 35-40% There is global left ventricular dysfunction, possible inferior akinesis. RIGHT VENTRICLE Normal right ventricular size and systolic function. LEFT ATRIUM The left atrial size is mildly dilated. RIGHT ATRIUM The right atrial size is normal. ATRIAL SEPTUM No atrial level shunt is demonstrated by color flow Doppler interrogation. AORTA The aortic root and proximal ascending aorta are normal in size on limited imaging. MITRAL VALVE Structurally normal mitral valve. No mitral valve stenosis. Mild mitral valve regurgitation. AORTIC VALVE Trileaflet aortic valve. Aortic valve sclerosis is present. Trace aortic valve regurgitation. No aortic valve stenosis. TRICUSPID VALVE Structurally normal tricuspid valve. There is mild tricuspid valve regurgitation. The estimated pulmonary arterial pressure is 45.3 mmHg. PULMONARY VALVE Trivial pulmonary valve regurgitation. VESSELS The inferior vena cava is normal in size. PERICARDIUM No pericardial effusion. Kade Stroud DO (Electronically Signed) Final Date:28 Feb 2018 09:17
[2018-02-28] MEDS: METOPROLOL SUCCINATE 50 MG EXTENDED RELEASE TAB PO SCH (09:56)
[2018-02-28] MEDS: DILTIAZEM-CD 180 MG CAP ER PO SCH (09:57)
[2018-02-28] MEDS: SODIUM CHLORIDE 0.9% FLUSH 10 ML FLUSH IV FLUSH SCH ×2 (09:57→21:00)
[2018-02-28] MEDS ORDERED: ATORVASTATIN 40 MG TAB PO SCH (21:00)
[2018-02-28] MEDS ORDERED: FAMOTIDINE 20 MG TAB PO SCH (21:00)
--- NOTE | 2018-02-28 22:27 | EKG ---
Date Performed: 02/27/2018 Time Performed: 20:01:48 PTAGE: 67 years EKG: Probable sinus tachycardia Left axis deviation Inferior infarct - age undetermined Possible anterior infarct - age undetermined Lateral ST-T changes may be due to myocardial ischemia Abnormal ECG PREVIOUS TRACING : 02/26/2018 16.07 DOCTOR: Carlos Botello Interpretating Date/Time 02/28/2018 22:25:57
[2018-03-01] VITALS: BP 155/71; PULSE 60; RESP 22; TEMP 97.8; O2SAT 100
[2018-03-01 03:05] LABS: AUTOMATED NEUTROPHIL # 5.7 TH/MM3 (1.8-7.7); BASOPHIL # 0.1 TH/MM3 (0-0.2); BASOPHIL % 0.7 % (0.0-2.0); EOSINOPHIL # 0.2 TH/MM3 (0-0.4); EOSINOPHIL % 2.2 % (0.0-4.0); HEMATOCRIT 42.5 % (39.0-51.0); HEMOGLOBIN 14.4 GM/DL (13.0-17.0); LYMPH % 20.1 % (9.0-44.0); LYMPHOCYTE # 1.7 TH/MM3 (1.0-4.8); MEAN CELL VOLUME 81.6 FL (80.0-100.0); MEAN CORPUSCULAR HEMOGLOBIN 27.7 PG (27.0-34.0); MEAN PLATELET VOLUME 8.9 FL (7.0-11.0); MONO % 8.4 % (0.0-8.0); MONOCYTE # 0.7 TH/MM3 (0-0.9); NEUT % 68.6 % (16.0-70.0); PLATELET COUNT 129 TH/MM3 (150-450); RED CELL DISTRIBUTION WIDTH 14.6 % (11.6-17.2); WHITE BLOOD COUNT 8.3 TH/MM3 (4.0-11.0)
[2018-03-01 03:21] LABS: ALBUMIN 3.2 GM/DL (3.4-5.0); ALT (GPT) 31 U/L (12-78); AST (GOT) 49 U/L (15-37); BLOOD UREA NITROGEN 14 MG/DL (7-18); CALCIUM 8.3 MG/DL (8.5-10.1); CHLORIDE 108 MEQ/L (98-107); CREATININE 1.25 MG/DL (0.60-1.30); GLOMERULAR FILTRATION RATE 58 ML/MIN (>89); GLUCOSE,RANDOM 95 MG/DL (74-106); MAGNESIUM 2.6 MG/DL (1.5-2.5); PHOSPHORUS 2.6 MG/DL (2.5-4.9); SODIUM (NA) 141 MEQ/L (136-145)
[2018-03-01 03:31] LABS: ALKALINE PHOSPHATASE 65 U/L (45-117); TOTAL BILIRUBIN ADULT 0.7 MG/DL (0.2-1.0); TOTAL PROTEIN 7.6 GM/DL (6.4-8.2)
[2018-03-01 04:00] VITALS: BP 157/59; PULSE 59; RESP 15; TEMP 98.5; O2SAT 99
[2018-03-01 08:00] VITALS: BP 164/97; PULSE 74; RESP 19; TEMP 98.4; O2SAT 96
--- NOTE | 2018-03-01 08:34 | PD.CARD.PN ---
Subjective Subjective Remarks No chest pain, dyspnea, palpitations, dizziness. Objective Medications Item Value Date Time Atorvastatin 40 mg 02/28/182099 Calcium HS/PO 02/28/182123 (Lipitor) Aspirin 81 mg 02/28/1800 (Ecotrin Ec) DAILY/PO 02/28/18 0957 Metoprolol 200 mg 02/28/18899 Succinate DAILY/PO 02/28/18 0956 (Toprol Xl) Diltiazem HCl 180 mg 02/28/18 0900 (Cardizem Cd) DAILY/PO 02/28/1857 Ticagrelor 90 mg 02/26/182099 (Brilinta) BID/PO 02/28/182123 Ramipril 10 mg 02/26/182099 (Altace) BID/PO 02/28/182124 Current Medications Medications (Trade) Dose Ordered Sig/Ananda Route Start Time Stop Time Status Last Admin (Heparin Inj) 5,000 units UNSCH PRN IV PUSH 02/26/18 16:30 (Heparin Inj) 2,500 units UNSCH PRN IV PUSH 02/26/18 16:30 02/28/18 11:45 Heparin Sodium/ Dextrose 250 ml @ 10 mls/hr TITRATE IV 02/26/18 10:30 02/28/18 11:46 (NS Flush) 2 ml BID IV FLUSH 02/26/18 21:00 02/28/18 09:57 (NS Flush) 2 ml UNSCH PRN IV FLUSH 02/26/18 11:30 02/27/18 18:43 (Nitrostat Sl) 0.4 mg Q5M PRN SL 02/26/18 11:30 (Morphine Inj) 2 mg Q30M PRN IV PUSH 02/26/18 11:30 (Brilinta) 90 mg BID PO 02/26/18 21:00 02/28/18 21:24 (Benadryl) 50 mg [employer] PO 02/26/18 14:15 03/02/18 14:14 (Valium) 10 mg [employer] PO 02/26/18 14:15 03/02/18 14:14 (Versed Inj) 1 mg [employer] IV PUSH 02/26/18 14:15 03/02/18 14:14 (Altace) 10 mg BID PO 5/14/18 21:00 02/28/18 21:25 (Morphine Inj) 4 mg Q3H PRN IV PUSH 02/26/18 18:00 (Lipitor) 40 mg HS PO 02/28/18 21:00 02/28/18 21:24 (Restoril) 15 mg HS PRN PO 02/27/18 15:00 02/27/18 23:37 (Lopressor Inj) 5 mg Q5M PRN IV PUSH 02/27/18 22:45 02/27/18 23:30 (Tylenol) 500 mg Q4H PRN PO 02/27/18 23:15 02/28/18 07:26 (Ecotrin Ec) 81 mg DAILY PO 02/28/18 09:00 02/28/18 09:57 (Toprol Xl) 200 mg DAILY PO 02/28/18 09:00 02/28/18 09:56 (Trandate Inj) 10 mg Q1H PRN IV PUSH 02/28/18 07:15 (Vasotec Inj) 2.5 mg Q6H PRN IV PUSH 02/28/18 07:15 (Cardizem Cd) 180 mg DAILY PO 02/28/18 09:00 02/28/18 09:57 (Pepcid) 20 mg HS PO 02/28/18 21:00 02/28/18 21:25 Vital Signs / I&O Vital Signs Date Time Temp Pulse Resp B/P (MAP) Pulse Ox O2 Delivery O2 Flow Rate FiO2 03/01/18 04:00 98.5 59 15 157/59 (91) 99 03/01/18 00:00 97.8 60 22 155/71 (99) 100 02/28/18 23:00 59 02/28/18 20:00 99.0 68 20 166/76 (106) 100 02/28/18 16:00 54 02/28/18 16:00 98.1 54 23 144/86 (105) 100 02/28/18 12:00 98.0 74 20 157/87 (110) 97 02/28/18 12:00 74 02/28/18 10:00 93 I/O 02/28/18 02/28/18 02/28/18 03/01/18 03/01/18 03/01/18 06:59 14:59 22:59 06:59 14:59 22:59 Intake Total 300 ml 170 ml 720 ml Output Total 750 ml 2200 ml 900 ml Balance -450 ml 170 ml -1480 ml -900 ml Intake Oral 300 ml 720 ml IV Total 170 ml Output Urine Total 750 ml 2200 ml 900 ml # Bowel Movements 1 0 Physical Exam GENERAL: Well developed, well nourished. No acute distress. HEENT: Jugular venous pressure is normal. CHEST: Lungs clear to auscultation anteriorly. CARDIAC: Irregular rate and rhythm without S3, S4. I/ MINERVA LUSB. ABDOMEN: Soft, nontender, no hepatosplenomegaly. Bowel sounds present. EXTREMITIES: No clubbing, cyanosis, or edema. Laboratory Laboratory Tests Test 02/28/18 10:45 02/28/18 20:39 03/01/18 02:52 Activated Partial Thromboplast Time 39.4 SEC 47.0 SEC 52.7 SEC Troponin I 22.10 NG/ML 20.30 NG/ML White Blood Count 8.3 TH/MM3 Red Blood Count 5.20 MIL/MM3 Hemoglobin 14.4 GM/DL Hematocrit 42.5 % Mean Corpuscular Volume 81.6 FL Mean Corpuscular Hemoglobin 27.7 PG Mean Corpuscular Hemoglobin Concent 34.0 % Red Cell Distribution Width 14.6 % Platelet Count 129 TH/MM3 Mean Platelet Volume 8.9 FL Neutrophils (%) (Auto) 68.6 % Lymphocytes (%) (Auto) 20.1 % Monocytes (%) (Auto) 8.4 % Eosinophils (%) (Auto) 2.2 % Basophils (%) (Auto) 0.7 % Neutrophils # (Auto) 5.7 TH/MM3 Lymphocytes # (Auto) 1.7 TH/MM3 Monocytes # (Auto) 0.7 TH/MM3 Eosinophils # (Auto) 0.2 TH/MM3 Basophils # (Auto) 0.1 TH/MM3 CBC Comment DIFF FINAL Differential Comment Blood Urea Nitrogen 14 MG/DL Creatinine 1.25 MG/DL Random Glucose 95 MG/DL Total Protein 7.6 GM/DL Albumin 3.2 GM/DL Calcium Level 8.3 MG/DL Phosphorus Level 2.6 MG/DL Magnesium Level 2.6 MG/DL Alkaline Phosphatase 65 U/L Aspartate Amino Transf (AST/SGOT) 49 U/L Alanine Aminotransferase (ALT/SGPT) 31 U/L Total Bilirubin 0.7 MG/DL Sodium Level 141 MEQ/L Potassium Level 4.1 MEQ/L Chloride Level 108 MEQ/L Carbon Dioxide Level 26.0 MEQ/L Anion Gap 7 MEQ/L Estimat Glomerular Filtration Rate 58 ML/MIN Total Creatine Kinase 180 U/L Thyroid Stimulating Hormone 3rd Gen 1.760 uIU/ML Assessment and Plan Problem List: (1) Coronary artery disease ICD Codes: I25.10 - Atherosclerotic heart disease of [place] coronary artery without angina pectoris Status: Chronic Plan: Doing well. No further angina. Cath 02/27/18 showed widely patent multiple stent sites in [place] RCA, patent GAFFNEY to LAD, new severe disease (90% ) in limb of Y graft to diagonal/obtuse marginal going to OM. This region stented. EF 35-40% by echo. Compensated. No CHF. REC OK to discharge from cardiac standpoint on current medications, 3-4 week f// u with me (2) Paroxysmal atrial fibrillation ICD Codes: I48.0 - Paroxysmal atrial fibrillation Status: Chronic Plan: Remains in an atrial tachycardia/flutter. Has been largely chronic past few months. Thromboembolic risk overall low. HR's controlled on metoprolol/ diltiazem. REC continue same regimen; to consider ablation in the near future (3) Hyperlipidemia ICD Codes: E78.5 - Hyperlipidemia, unspecified Status: Chronic Plan: Continue statin therapy. Good lipid profile this admission. (4) Hypertension ICD Codes: I10 - Essential (primary) hypertension Status: Chronic Plan: Still suboptimal BP control. To monitor and treat further as outpatient. Code Status full code Discussed Condition With patient Problem Qualifiers (1) Coronary artery disease: Qualified Codes: I25.110 - Atherosclerotic heart disease of [place] coronary artery with unstable angina pectoris (2) Hyperlipidemia: Qualified Codes: E78.2 - Mixed hyperlipidemia (3) Hypertension: Qualified Codes: I10 - Essential (primary) hypertension Mando Wright MD March 01, 2018 08:34
[2018-03-01] MEDS: TICAGRELOR 90 MG TAB PO SCH (08:53)
[2018-03-01] MEDS: RAMIPRIL 5 MG CAP PO SCH (08:53)
[2018-03-01] MEDS: SODIUM CHLORIDE 0.9% FLUSH 10 ML FLUSH IV FLUSH SCH (08:54)
[2018-03-01] MEDS: METOPROLOL SUCCINATE 50 MG EXTENDED RELEASE TAB PO SCH (08:54)
[2018-03-01] MEDS: DILTIAZEM-CD 180 MG CAP ER PO SCH (08:54)
[2018-03-01] MEDS ORDERED: ASPIRIN EC 81 MG TABEC PO SCH (09:00)
--- NOTE | 2018-03-01 10:34 | HHI.PR ---
Subjective Remarks 67-year-old gentleman who is still working daily and is quite active admitted with 2 weeks of intermittent chest discomfort and tightness worse with cardiovascular exercise and improved with rest. Patient does have paroxysmal atrial fibrillation and noted increased palpitations. He has not had dizziness but notes that the chest discomfort radiates into the neck and into his shoulders. He was quite concerned given his history of a cardiac bypass and atrial fibrillation. He came to the hospital and was found to have a elevation in the cardiac enzymes and his troponin is 2.13. He was admitted to with a diagnosis of non-ST elevation [place]. He was taken urgently to cardiac catheterization lab where he was found to have severe lesion in the limb to the obtuse marginal, which is now status post angioplasty and stent of this region. While in the CICU unit he developed sudden onset of uncontrolled tachycardia. He denies chest pain or shortness of breath. His troponins is elevated to 9. He had a stat CT of the abdomen and pelvis to rule out retroperitoneal bleed. This has been negative. SUBJECTIVE: 02/28: Patient resting in bed in no acute distress. Heart rate well controlled. Denies chest pain or shortness of breath. No hematoma at catheterization site. 03-01 TRANSFERRED TO OUR SERVICE TODAY HAS BEEN CLEARED BY CARDIOLOGY CAN BE DC ON ASPIRIN AND BRILINTA BID DW RN AND PT DC TO HOME TODAY Objective Vitals Vital Signs Date Time Temp Pulse Resp B/P (MAP) Pulse Ox O2 Delivery O2 Flow Rate FiO2 03/01/18 08:00 98.4 74 19 164/97 (119) 96 03/01/18 04:00 98.5 59 15 157/59 (91) 99 03/01/18 00:00 97.8 60 22 155/71 (99) 100 02/28/18 23:00 59 02/28/18 20:00 99.0 68 20 166/76 (106) 100 02/28/18 16:00 54 02/28/18 16:00 98.1 54 23 144/86 (105) 100 02/28/18 12:00 98.0 74 20 157/87 (110) 97 02/28/18 12:00 74 I/O 02/28/18 02/28/18 02/28/18 03/01/18 03/01/18 03/01/18 07:00 15:00 23:00 07:00 15:00 23:00 Intake Total 300 ml 170 ml 720 ml Output Total 750 ml 2200 ml 900 ml Balance -450 ml 170 ml -1480 ml -900 ml Intake Oral 300 ml 720 ml IV Total 170 ml Output Urine Total 750 ml 2200 ml 900 ml # Bowel Movements 1 0 Result Diagram: 03/01/18 0252 03/01/18 0252 Other Results Laboratory Tests Test 02/26/18 16:00 02/26/18 20:43 02/27/18 00:22 02/27/18 02:42 Total Creatine Kinase 109 U/L 91 U/L Creatine Kinase MB 2.8 NG/ML Troponin I 2.29 NG/ML 2.17 NG/ML Activated Partial Thromboplast Time 42.5 SEC 45.9 SEC Test 02/27/18 10:25 02/27/18 21:41 02/28/18 03:20 02/28/18 10:45 Blood Urea Nitrogen 16 MG/DL 15 MG/DL 13 MG/DL Creatinine 1.33 MG/DL 1.33 MG/DL 1.16 MG/DL Random Glucose 86 MG/DL 106 MG/DL 101 MG/DL Calcium Level 8.3 MG/DL 7.9 MG/DL 8.0 MG/DL Sodium Level 140 MEQ/L 141 MEQ/L 142 MEQ/L Potassium Level 3.9 MEQ/L 3.7 MEQ/L 3.9 MEQ/L Chloride Level 108 MEQ/L 107 MEQ/L 109 MEQ/L Carbon Dioxide Level 24.1 MEQ/L 28.0 MEQ/L 24.8 MEQ/L Anion Gap 8 MEQ/L 6 MEQ/L 8 MEQ/L Estimat Glomerular Filtration Rate 54 ML/MIN 54 ML/MIN 63 ML/MIN White Blood Count 7.0 TH/MM3 8.6 TH/MM3 Red Blood Count 5.05 MIL/MM3 4.92 MIL/MM3 Hemoglobin 13.8 GM/DL 13.5 GM/DL Hematocrit 41.1 % 39.9 % Mean Corpuscular Volume 81.4 FL 81.1 FL Mean Corpuscular Hemoglobin 27.4 PG 27.5 PG Mean Corpuscular Hemoglobin Concent 33.6 % 33.9 % Red Cell Distribution Width 15.0 % 14.7 % Platelet Count 133 TH/MM3 131 TH/MM3 Mean Platelet Volume 9.1 FL 8.8 FL Prothrombin Time 10.1 SEC Prothromb Time International Ratio 1.0 RATIO Fibrinogen 354 mg/dL Total Protein 7.1 GM/DL Albumin 3.3 GM/DL Phosphorus Level 2.2 MG/DL Magnesium Level 2.2 MG/DL Alkaline Phosphatase 65 U/L Aspartate Amino Transf (AST/SGOT) 49 U/L Alanine Aminotransferase (ALT/SGPT) 31 U/L Total Bilirubin 0.3 MG/DL Troponin I 9.56 NG/ML 17.70 NG/ML 22.10 NG/ML Neutrophils (%) (Auto) 76.7 % Lymphocytes (%) (Auto) 12.9 % Monocytes (%) (Auto) 8.9 % Eosinophils (%) (Auto) 1.1 % Basophils (%) (Auto) 0.4 % Neutrophils # (Auto) 6.6 TH/MM3 Lymphocytes # (Auto) 1.1 TH/MM3 Monocytes # (Auto) 0.8 TH/MM3 Eosinophils # (Auto) 0.1 TH/MM3 Basophils # (Auto) 0.0 TH/MM3 CBC Comment DIFF FINAL Differential Comment Activated Partial Thromboplast Time 29.4 SEC 39.4 SEC Total Creatine Kinase 387 U/L Creatine Kinase MB 41.3 NG/ML Creatine Kinase MB % 10.7 % Triglycerides Level 86 MG/DL Cholesterol Level 120 MG/DL LDL Cholesterol 40 MG/DL HDL Cholesterol 62.5 MG/DL Cholesterol/HDL Ratio 1.92 RATIO Test 02/28/18 20:39 03/01/18 02:52 Activated Partial Thromboplast Time 47.0 SEC 52.7 SEC White Blood Count 8.3 TH/MM3 Red Blood Count 5.20 MIL/MM3 Hemoglobin 14.4 GM/DL Hematocrit 42.5 % Mean Corpuscular Volume 81.6 FL Mean Corpuscular Hemoglobin 27.7 PG Mean Corpuscular Hemoglobin Concent 34.0 % Red Cell Distribution Width 14.6 % Platelet Count 129 TH/MM3 Mean Platelet Volume 8.9 FL Neutrophils (%) (Auto) 68.6 % Lymphocytes (%) (Auto) 20.1 % Monocytes (%) (Auto) 8.4 % Eosinophils (%) (Auto) 2.2 % Basophils (%) (Auto) 0.7 % Neutrophils # (Auto) 5.7 TH/MM3 Lymphocytes # (Auto) 1.7 TH/MM3 Monocytes # (Auto) 0.7 TH/MM3 Eosinophils # (Auto) 0.2 TH/MM3 Basophils # (Auto) 0.1 TH/MM3 CBC Comment DIFF FINAL Differential Comment Blood Urea Nitrogen 14 MG/DL Creatinine 1.25 MG/DL Random Glucose 95 MG/DL Total Protein 7.6 GM/DL Albumin 3.2 GM/DL Calcium Level 8.3 MG/DL Phosphorus Level 2.6 MG/DL Magnesium Level 2.6 MG/DL Alkaline Phosphatase 65 U/L Aspartate Amino Transf (AST/SGOT) 49 U/L Alanine Aminotransferase (ALT/SGPT) 31 U/L Total Bilirubin 0.7 MG/DL Sodium Level 141 MEQ/L Potassium Level 4.1 MEQ/L Chloride Level 108 MEQ/L Carbon Dioxide Level 26.0 MEQ/L Anion Gap 7 MEQ/L Estimat Glomerular Filtration Rate 58 ML/MIN Total Creatine Kinase 180 U/L Troponin I 20.30 NG/ML Thyroid Stimulating Hormone 3rd Gen 1.760 uIU/ML Imaging Last Impressions Abdomen/Pelvis CT 02/27/18 0000 Signed Impressions: Service Date/Time: Tuesday, February 27, 2018 21:05 - CONCLUSION: No acute CT findings in the abdomen or pelvis. Ari Beltran MD Chest X-Ray 02/26/18 0857 Signed Impressions: Service Date/Time: Monday, February 26, 2018 09:02 - CONCLUSION: 1. 2.8 x 2.6 cm partially calcified mass in the lateral margin of the right lung stable compared to previous dated 02/22/16. Randolph Mascorro MD Objective Remarks GENERAL: Awake alert and oriented 3 SKIN: Warm and dry. HEAD: Atraumatic. Normocephalic. EYES: Pupils equal and round. No scleral icterus. No injection or drainage. Extraocular muscles intact ENT: No nasal bleeding or discharge. Mucous membranes pink and moist. NECK: Trachea midline. No JVD. CARDIOVASCULAR: IRRegular rate and rhythm. S1-S2 no S3 or S4 RESPIRATORY: No accessory muscle use. Clear to auscultation. Breath sounds equal bilaterally. GASTROINTESTINAL: Abdomen soft, non-tender, nondistended. Hepatic and splenic margins not palpable. MUSCULOSKELETAL: Extremities without clubbing, cyanosis, or edema. No obvious deformities. NEUROLOGICAL: Awake and alert. No obvious cranial nerve deficits. Motor grossly within normal limits. Five out of 5 muscle strength in the arms and legs. Normal speech. PSYCHIATRIC: Appropriate mood and affect; insight and judgment normal. Procedures Kyle,Mando H MD DATE: 02/27/2018 DATE OF : 1950 PROCEDURE: Selective coronary and graft angiography, angioplasty and stent of the vein graft to the obtuse marginal. PROCEDURE NOTES: The patient was brought to the cardiac catheterization laboratory in a fasting state after having signed informed consent. The right groin was prepped and draped as per policy and anesthetized with 1% lidocaine. Arterial access was obtained via the right femoral artery and a 6-[place]ian sheath placed. Coronary arteriography was performed using 6-[place]ian Maria M left 4.0 and right progressive catheters. The left internal mammary artery graft was engaged with the progressive right catheter. The Y-graft to the diagonal and obtuse marginal was engaged with a left coronary bypass catheter. Percutaneous graft intervention was done as described below. There were no apparent immediate complications. CORONARY ARTERIOGRAPHY: The left main is a large caliber though short vessel with possibly up to 15% distal tapering. The left anterior descending is totally occluded proximally. The left circumflex is a small caliber vessel with approximately 40% stenosis proximally. There is a small caliber second obtuse marginal which appears to be totally occluded proximally. The right coronary artery is a large, dominant vessel which has a number of stents encompassing its proximal to distal portions. Overall, there are mild diffuse luminal irregularities of the stents. There may be up to 25% proximal disease in an unstented region. Two small caliber posterolateral branches have diffuse 60-70% disease proximally. The continuation of the very distal right coronary has diffuse up to 40% disease. GRAFT ANGIOGRAPHY: The left internal mammary artery to the LAD is widely patent. There is retrograde filling into a small caliber diagonal which has severe ostial and proximal disease. The mid to distal LAD appears to be normal. The Y-graft to the obtuse marginal and diagonal demonstrates a 90% lesion right at the origin of the limb to the obtuse marginal. The limb to the diagonal is widely patent. PERCUTANEOUS GRAFT INTERVENTION DESCRIPTION: Aggrastat was given as per protocol. Adequate heparin was given to achieve an ACT greater than 250 seconds. Using a 6-[place] left coronary bypass guiding catheter, the ostium of the Y-graft to the obtuse marginal and diagonal was reengaged. Efforts to wire the lesion with a [place] wire were unsuccessful. We were able to wire the stenosis easily with a Whisper wire. A number of predilations were done using a 2.25 mm Euphora balloon catheter and then a noncompliant 2.25 mm Euphora balloon catheter. Stenting was finally done using a 2.25 x 22 mm Resolute Matt stent which was deployed at 14 atmospheres for 40 seconds. Final angiography shows overall good results with reduction of the stenosis to roughly 0% residual with no definite evidence for dissection or distal embolization. The patient did develop chest pain with balloon inflations relieved by balloon deflations as well as numerous administrations of intracoronary nitroglycerin. CONCLUSIONS: 1. Severe three-vessel [place] coronary artery disease. 2. Patent left internal mammary artery to the left anterior descending. 3. Patent Y-graft to the diagonal and obtuse marginal, although with a severe lesion in the limb to the obtuse marginal, now status post angioplasty and stent of this region. 4. Widely patent numerous stent sites in the [place] right coronary, encompassing the proximal to distal vessel. DISCUSSION: The moderate to severe residual disease in the [place] posterolateral branches off the right coronary will be treated medically. These branches are of relatively small caliber. Medications and IVs Current Medications Nitroglycerin (Nitrostat Sl) 0.4 mg Q5M PRN SL CHEST PAIN Last administered on 02/26/18at 10:10; Start 02/26/18 at 09:15; Stop 02/26/18 at 11:23; Status DC Sodium Chloride (NS Flush) 2 ml BID IV FLUSH ; Start 02/26/18 at 21:00; Stop at 21:00; Status DC Sodium Chloride (NS Flush) 2 ml UNSCH PRN IV FLUSH FLUSH AFTER USING IV ACCESS ; Start 02/26/18 at 10:30; Stop 02/26/18 at 11:50; Status DC Heparin Sodium (Porcine) (Heparin Inj) 5,000 units UNSCH PRN IV PUSH APTT LESS THAN 25; Start 02/26/18 at 16:30 Heparin Sodium (Porcine) (Heparin Inj) 2,500 units UNSCH PRN IV PUSH APTT 25 TO 39 Last administered on 02/28/18at 11:45; Start 02/26/18 at 16:30 Heparin Sodium/ Dextrose 250 ml @ 10 mls/hr TITRATE IV Last administered on at 11:46; Start 02/26/18 at 10:30 Sodium Chloride (NS Flush) 2 ml BID IV FLUSH Last administered on 03/01/18at 08: 54; Start 02/26/18 at 21:00 Sodium Chloride (NS Flush) 2 ml UNSCH PRN IV FLUSH FLUSH AFTER USING IV ACCESS Last administered on 02/27/18at 18:43; Start 02/26/18 at 11:30 Aspirin (Ecotrin Ec) 325 mg DAILY PO Last administered on 02/27/18at 08:53; Start 02/27/18 at 09:00; Stop 02/28/18 at 05:41; Status DC Clopidogrel Bisulfate (Plavix) 75 mg DAILY PO Last administered on 02/26/18at 12 :21; Start 02/26/18 at 12:00; Stop 02/26/18 at 13:23; Status DC Nitroglycerin (Nitrostat Sl) 0.4 mg Q5M PRN SL CHEST PAIN; Start 02/26/18 at 11 :30 Morphine Sulfate (Morphine Inj) 2 mg Q30M PRN IV PUSH CHEST PAIN; Start at 11:30 Carvedilol (Coreg) 3.125 mg BID PO ; Start 02/26/18 at 12:00; Stop 02/26/18 at 17:54; Status DC Hydralazine HCl (Apresoline Inj) 10 mg ONCE ONCE IV PUSH Last administered on 02/26/18at 13:25; Start 02/26/18 at 13:15; Stop 02/26/18 at 13:16; Status DC Hydralazine HCl (Apresoline Inj) 10 mg Q4H PRN IV PUSH SBP>160, DBP>90 Last administered on 02/28/18at 04:03; Start 02/26/18 at 13:15; Stop 02/28/18 at 07:10 ; Status DC Ticagrelor (Brilinta) 90 mg BID PO Last administered on 03/01/18at 08:53; Start 02/26/18 at 21:00 Sodium Chloride 1,000 ml @ 100 mls/hr Q10H IV Last administered on 02/27/18at 15:30; Start 02/26/18 at 14:13; Stop 02/28/18 at 16:44; Status DC Diphenhydramine HCl (Benadryl) 50 mg CARDIOLOGY RN PO ; Start 02/26/18 at 14:15; Stop 03/02/18 at 14:14 Diazepam (Valium) 10 mg CARDIOLOGY RN PO ; Start 02/26/18 at 14:15; Stop 03/02/18 at 14:14 Midazolam HCl (Versed Inj) 1 mg CARDIOLOGY RN IV PUSH ; Start 02/26/18 at 14:15; Stop 03/02/18 at 14:14 Metoprolol Succinate (Toprol Xl) 100 mg DAILY PO Last administered on at 07:24; Start 02/27/18 at 09:00; Stop 02/28/18 at 05:41; Status DC Ramipril (Altace) 10 mg BID PO Last administered on 03/01/18at 08:53; Start at 21:00 Nitroglycerin (Nitroglycerin 2% Oint) 1 inch Q6HR TOPICAL Last administered on 02/28/18at 01:30; Start 02/26/18 at 18:00; Stop 02/28/18 at 05:41; Status DC Morphine Sulfate (Morphine Inj) 4 mg Q3H PRN IV PUSH CHEST PAIN; Start at 18:00 Calcium Carbonate (Tums Chew) 500 mg ONCE ONCE CHEW Last administered on at 21:47; Start 02/26/18 at 21:15; Stop 02/26/18 at 21:30; Status DC Pneumococcal Polyvalent Vaccine (Pneumovax-23 Inj) 25 mcg ONCE ONCE IM ; Start 02/27/18 at 10:00; Stop 02/27/18 at 10:01; Status DC Metoprolol Tartrate (Lopressor Inj) 5 mg ONCE ONCE IV PUSH Last administered on 02/27/18at 03:13; Start 02/27/18 at 03:00; Stop 02/27/18 at 03:04; Status DC Atorvastatin Calcium (Lipitor) 40 mg ONCE ONCE PO Last administered on at 11:31; Start 02/27/18 at 09:15; Stop 02/27/18 at 09:18; Status DC Atorvastatin Calcium (Lipitor) 40 mg HS PO Last administered on 02/28/18at 21:24 ; Start 02/28/18 at 21:00 Heparin Sodium/ Sodium Chloride 2,000 ml @ As Directed STK-MED ONCE IV FLUSH Last administered on 02/27/18at 00:00; Start 02/27/18 at 12:52; Stop 02/27/18 at 12:53; Status DC Midazolam HCl (Versed Inj) 2 mg STK-MED ONCE .ROUTE Last administered on at 13:48; Start 02/27/18 at 13:23; Stop 02/27/18 at 13:24; Status DC Fentanyl Citrate (fentaNYL INJ) 100 mcg STK-MED ONCE .ROUTE Last administered on 02/27/18at 13:50; Start 02/27/18 at 13:49; Stop 02/27/18 at 13:50; Status DC Tirofiban/Sodium Chloride 250 ml @ As Directed STK-MED ONCE IV Last administered on 02/27/18 14:04; Start 02/27/18 at 14:02; Stop 02/27/18 at 14:03 ; Status DC Heparin Sodium (Porcine) (Heparin Inj) 10,000 units STK-MED ONCE .ROUTE Last administered on 02/27/18at 14:05; Start 02/27/18 at 14:05; Stop 02/27/18 at 14:06 ; Status DC Midazolam HCl (Versed Inj) 2 mg STK-MED ONCE .ROUTE Last administered on at 14:25; Start 02/27/18 at 14:25; Stop 02/27/18 at 14:26; Status DC Sodium Chloride 1,000 ml @ 100 mls/hr Q10H IV Last administered on 02/27/18at 23:53; Start 02/27/18 at 20:00; Stop 02/28/18 at 16:44; Status DC Temazepam (Restoril) 15 mg HS PRN PO SLEEP Last administered on 02/27/18at 23:37 ; Start 02/27/18 at 15:00 Tirofiban/Sodium Chloride 250 ml @ 14.85 mls/ hr [id number] IV ; Start 02/27/18 at 21:00; Stop 02/27/18 at 21:00; Status DC Iohexol (OMNIPAQUE 350 INJ (Radiopharmacist)) 100 ml STK-MED ONCE OTHER ; Start at 18:24; Stop 02/27/18 at 18:25; Status DC Sodium Chloride 500 ml @ 999 mls/hr Q31M ONCE IV ; Start 02/27/18 at 20:15; Stop 02/27/18 at 20:45; Status DC Epinephrine HCl (EPINEPHrine (1:10,000) INJ) 1 mg STK-MED ONCE .ROUTE ; Start at 20:51; Stop 02/27/18 at 20:52; Status DC Metoprolol Tartrate (Lopressor Inj) 5 mg STK-MED ONCE .ROUTE Last administered on 02/27/18at 23:00; Start 02/27/18 at 22:16; Stop 02/27/18 at 22:17; Status DC Metoprolol Tartrate (Lopressor Inj) 5 mg NOW ONCE IV PUSH Last administered on 02/27/18at 22:16; Start 02/27/18 at 22:16; Stop 02/27/18 at 22:36; Status DC Sodium Chloride 1,000 ml @ 999 mls/hr BOLUS ONCE IV ; Start 02/27/18 at 22:45 ; Stop 02/27/18 at 23:45; Status DC Metoprolol Tartrate (Lopressor Inj) 5 mg Q5M PRN IV PUSH HR>100 Last administered on 02/27/18at 23:30; Start 02/27/18 at 22:45 Acetaminophen (Tylenol) 500 mg Q4H PRN PO Headache Last administered on at 07:26; Start 02/27/18 at 23:15 Aspirin (Ecotrin Ec) 81 mg DAILY PO Last administered on 02/28/18at 09:57; Start 02/28/18 at 09:00; Stop 03/01/18 at 08:57; Status DC Metoprolol Succinate (Toprol Xl) 200 mg DAILY PO Last administered on at 08:54; Start 02/28/18 at 09:00 Digoxin (Lanoxin Inj) 0.25 mg ONCE ONCE IV PUSH Last administered on at 07:58; Start 02/28/18 at 06:45; Stop 02/28/18 at 06:57; Status DC Potassium Chloride (KCl) 20 meq ONCE ONCE PO Last administered on 02/28/18at 09 :58; Start 02/28/18 at 07:00; Stop 02/28/18 at 07:01; Status DC Magnesium Sulfate/ Dextrose 100 ml @ 100 mls/hr ONCE ONCE IV Last administered on 02/28/18at 09:56; Start 02/28/18 at 07:00; Stop 02/28/18 at 07:59 ; Status DC Labetalol HCl (Trandate Inj) 10 mg Q1H PRN IV PUSH SBP>160, DBP>90, HR>65; Start 02/28/18 at 07:15 Enalaprilat (Vasotec Inj) 2.5 mg Q6H PRN IV PUSH SBP>160, DBP>90; Start at 07:15 Diltiazem HCl (Cardizem Cd) 180 mg DAILY PO Last administered on 03/01/18at 08: 54; Start 02/28/18 at 09:00 Famotidine (Pepcid) 20 mg HS PO Last administered on 02/28/18at 21:25; Start at 21:00 Aspirin (Ecotrin Ec) 81 mg DAILY PO Last administered on 03/01/18at 09:40; Start 03/01/18 at 09:00 Urinary Catheter: No Vascular Central Line Catheter: No A/P Problem List: (1) Calcified nodule ICD Code: R22.9 - Localized swelling, mass and lump, unspecified Plan: \patient will be admitted Continue with medical management of morphine, oxygen, nitro, aspirin, Plavix Patient does take Brilinta, metoprolol, simvastatin and ramipril which we will continue as tolerated Blood pressure has been elevated and hydralazine IV has been added (2) NSTEMI (non-ST elevated myocardial infarction) ICD Code: I21.4 - Non-ST elevation (NSTEMI) myocardial infarction Status: Resolved Plan: This appears to coincide with the right sided scapular nodule the patient has had since the . Patient is aware of these findings and periodically has them on x-ray and it does not appear to be an acute pulmonary issue. Patient will continue to follow with his primary care provider Assessment and Plan Neuro/Psych: Acetaminophen 500 mg p.o. every 4 hours as needed headache Morphine sulfate 2-4 mg IV every 30 minutes as needed pain Temazepam 15 mg at night as needed insomnia CV: Coronary artery disease status post CABG [address] Gupta Coronary artery disease -stent/angioplasty to Y-graft to the obtuse marginal and diagonal Essential hypertension Hyperlipidemia with elevated HDL Atrial fibrillation with rapid ventricular response Elevated troponin Dr. Wright/cardiology following Currently on Ticagrelor 90 mg p.o. twice daily, aspirin 81 mg daily for stent patency. On 325 mg aspirin at home. Currently on metoprolol succinate 200 mg daily. On metoprolol tartrate 100 mg daily at home On atorvastatin 40 mg daily for dyslipidemia. On simvastatin 5 mill grams daily at home Continue ramipril 10 mg twice daily for hypertension/home medication Continue heparin drip Currently receiving as needed Lopressor for tachycardia. Will give 1 dose digoxin up to 5 mg IV 1 now. [id number] score is 4. congestive heart failure ejection fraction 35-40% likely chronic systolic. -2D echocardiogram 2015 revealed EF 35-40%. No regional wall motion abnormality per moderate MR. On cardiac catheterization, left main 50%. LAD proximally occluded. Left circumflex proximally occluded 40%. OM 2 occluded. RCA with [address] 70% stenosis. GAFFNEY to LAD patent. Stent placed Y graft to obtuse marginal/ diagonal. Received 1 dose digoxin 0.25 mg IV 1 now. Nitropaste discontinued per cardiology Resp: Stable right lung calcified mass Nasal cannula to maintain saturations greater than or equal to 92% Incentive spirometry while awake Chest x-ray revealed a stable right lung mass/calcified. Recommend routine follow-up GI: Colonic diverticulosis Heart healthy diet Famotidine for GI prophylaxis Docusate sodium/senna 1 tablet twice daily for bowel regimen CT abdomen/pelvis revealed colonic diverticulosis only. No signs of bleeding. Induration at site of right femoral artery : No indication for Weathers catheter placement Endo: Sliding scale insulin if indicated to maintain euglycemia Check hemoglobin A1c and TSH Renal: Chronic kidney disease stage II Creatinine clearance currently around 60. Monitor urine output Accurate I's and O's Heme: CBC within normal limits Monitor for signs and symptomatology of bleeding. CT abdomen/pelvis revealed no retroperitoneal hematoma ID: Monitor for signs and symptomatology of infection FEN: Replace electrolytes as clinically indicated. Goal keep potassium greater than 4, magnesium greater than 2. 20 mEq KCl p.o. 1 now. MSK: OA PT evaluate and treat Access -Utilize peripheral IV. Central line if indicated Prophylaxis -GI -famotidine -DVT -SCD/heparin drip provides DVT prophylaxis Discharge Planning DC TO HOME ON PO MEDS TODAY Westley Santana DO March 01, 2018 10:34
[2018-03-01] MEDS ORDERED: CARD180C5 PO (10:38)
[2018-03-01] MEDS ORDERED: BRIL90TA PO (10:38)
[2018-03-01] MEDS ORDERED: METO1TAB9 PO (10:38)
[2018-03-01] MEDS ORDERED: FAMO20TA2 PO (10:38)
[2018-03-01] MEDS ORDERED: RAMI10CA PO (10:38)
[2018-03-01] MEDS ORDERED: NITR0.4S SL (10:38)
[2018-03-01] MEDS ORDERED: ASPI-183 PO (10:38)
[2018-03-01] MEDS ORDERED: ATOR40TA16 PO (10:38)
--- NOTE | 2018-03-01 10:40 | HHI.DS ---
Discharge Summary Admission Date February 26, 2018 at 11:14 Discharge Date: March 01, 2018 Admitting Diagnosis NSTEMI (1) Calcified nodule ICD Code: R22.9 - Localized swelling, mass and lump, unspecified Diagnosis: Secondary (2) NSTEMI (non-ST elevated myocardial infarction) ICD Code: I21.4 - Non-ST elevation (NSTEMI) myocardial infarction Diagnosis: Principal Status: Resolved (3) Hypertension ICD Code: I10 - Essential (primary) hypertension Diagnosis: Secondary Status: Chronic (4) Paroxysmal atrial fibrillation ICD Code: I48.0 - Paroxysmal atrial fibrillation Diagnosis: Secondary Status: Chronic (5) Hyperlipidemia ICD Code: E78.5 - Hyperlipidemia, unspecified Status: Chronic (6) Coronary artery disease ICD Code: I25.10 - Atherosclerotic heart disease of [place] coronary artery without angina pectoris Diagnosis: Principal Status: Chronic (7) Chest pain ICD Code: R07.9 - Chest pain, unspecified Diagnosis: Principal Status: Acute Procedures Mando Wright MD DATE: 02/27/2018 DATE OF : 1950 PROCEDURE: Selective coronary and graft angiography, angioplasty and stent of the vein graft to the obtuse marginal. PROCEDURE NOTES: The patient was brought to the cardiac catheterization laboratory in a fasting state after having signed informed consent. The right groin was prepped and draped as per policy and anesthetized with 1% lidocaine. Arterial access was obtained via the right femoral artery and a 6-[place] sheath placed. Coronary arteriography was performed using 6-[place] Maria M left 4.0 and right progressive catheters. The left internal mammary artery graft was engaged with the progressive right catheter. The Y-graft to the diagonal and obtuse marginal was engaged with a left coronary bypass catheter. Percutaneous graft intervention was done as described below. There were no apparent immediate complications. CORONARY ARTERIOGRAPHY: The left main is a large caliber though short vessel with possibly up to 15% distal tapering. The left anterior descending is totally occluded proximally. The left circumflex is a small caliber vessel with approximately 40% stenosis proximally. There is a small caliber second obtuse marginal which appears to be totally occluded proximally. The right coronary artery is a large, dominant vessel which has a number of stents encompassing its proximal to distal portions. Overall, there are mild diffuse luminal irregularities of the stents. There may be up to 25% proximal disease in an unstented region. Two small caliber posterolateral branches have diffuse 60-70% disease proximally. The continuation of the very distal right coronary has diffuse up to 40% disease. GRAFT ANGIOGRAPHY: The left internal mammary artery to the LAD is widely patent. There is retrograde filling into a small caliber diagonal which has severe ostial and proximal disease. The mid to distal LAD appears to be normal. The Y-graft to the obtuse marginal and diagonal demonstrates a 90% lesion right at the origin of the limb to the obtuse marginal. The limb to the diagonal is widely patent. PERCUTANEOUS GRAFT INTERVENTION DESCRIPTION: Aggrastat was given as per protocol. Adequate heparin was given to achieve an ACT greater than 250 seconds. Using a 6-[place] left coronary bypass guiding catheter, the ostium of the Y-graft to the obtuse marginal and diagonal was reengaged. Efforts to wire the lesion with a [place] wire were unsuccessful. We were able to wire the stenosis easily with a Whisper wire. A number of predilations were done using a 2.25 mm Euphora balloon catheter and then a noncompliant 2.25 mm Euphora balloon catheter. Stenting was finally done using a 2.25 x 22 mm Resolute Matt stent which was deployed at 14 atmospheres for 40 seconds. Final angiography shows overall good results with reduction of the stenosis to roughly 0% residual with no definite evidence for dissection or distal embolization. The patient did develop chest pain with balloon inflations relieved by balloon deflations as well as numerous administrations of intracoronary nitroglycerin. CONCLUSIONS: 1. Severe three-vessel [place] coronary artery disease. 2. Patent left internal mammary artery to the left anterior descending. 3. Patent Y-graft to the diagonal and obtuse marginal, although with a severe lesion in the limb to the obtuse marginal, now status post angioplasty and stent of this region. 4. Widely patent numerous stent sites in the [place] right coronary, encompassing the proximal to distal vessel. DISCUSSION: The moderate to severe residual disease in the [place] posterolateral branches off the right coronary will be treated medically. These branches are of relatively small caliber. Brief History - From Admission This patient is a very pleasant 67-year-old gentleman who is still working daily and is quite active who comes in with 2 weeks of intermittent chest discomfort and tightness worse with cardiovascular exercise and improved with rest. Patient does have paroxysmal atrial fibrillation and noted increased palpitations. He has not had dizziness but notes that the chest discomfort radiates into the neck and into his shoulders. He described is mild and dull. He was quite concerned given his history of a cardiac bypass and atrial fibrillation. He came to the hospital and was found to have a elevation in the cardiac enzymes and his troponin is 2.13. On my review his EKG does show some minimal evidence of a flutter but no yossi ST elevation. He will admitted to the hospital for further evaluation of a non-ST elevation [place] CBC/BMP: 03/01/18 0252 03/01/18 0252 Significant Findings Laboratory Tests Test 02/26/18 16:00 02/26/18 20:43 02/27/18 00:22 02/27/18 02:42 Troponin I 2.29 NG/ML (0.02-0.05) 2.17 NG/ML (0.02-0.05) Activated Partial Thromboplast Time 42.5 SEC (24.3-30.1) 45.9 SEC (24.3-30.1) Test 02/27/18 10:25 02/27/18 21:41 02/28/18 03:20 02/28/18 10:45 Creatinine 1.33 MG/DL (0.60-1.30) 1.33 MG/DL (0.60-1.30) Calcium Level 8.3 MG/DL (8.5-10.1) 7.9 MG/DL (8.5-10.1) 8.0 MG/DL (8.5-10.1) Chloride Level 108 MEQ/L (98-107) 109 MEQ/L (98-107) Estimat Glomerular Filtration Rate 54 ML/MIN (>89) 54 ML/MIN (>89) 63 ML/MIN (>89) Platelet Count 133 TH/MM3 (150-450) 131 TH/MM3 (150-450) Albumin 3.3 GM/DL (3.4-5.0) Phosphorus Level 2.2 MG/DL (2.5-4.9) Aspartate Amino Transf (AST/SGOT) 49 U/L (15-37) Troponin I 9.56 NG/ML (0.02-0.05) 17.70 NG/ML (0.02-0.05) 22.10 NG/ML (0.02-0.05) Neutrophils (%) (Auto) 76.7 % (16.0-70.0) Monocytes (%) (Auto) 8.9 % (0.0-8.0) Total Creatine Kinase 387 U/L (39-308) Creatine Kinase MB 41.3 NG/ML (0.5-3.6) Creatine Kinase MB % 10.7 % (0.0-4.0) HDL Cholesterol 62.5 MG/DL (40.0-60.0) Activated Partial Thromboplast Time 39.4 SEC (24.3-30.1) Test 02/28/18 20:39 03/01/18 02:52 Activated Partial Thromboplast Time 47.0 SEC (24.3-30.1) 52.7 SEC (24.3-30.1) Platelet Count 129 TH/MM3 (150-450) Monocytes (%) (Auto) 8.4 % (0.0-8.0) Albumin 3.2 GM/DL (3.4-5.0) Calcium Level 8.3 MG/DL (8.5-10.1) Magnesium Level 2.6 MG/DL (1.5-2.5) Aspartate Amino Transf (AST/SGOT) 49 U/L (15-37) Chloride Level 108 MEQ/L (98-107) Estimat Glomerular Filtration Rate 58 ML/MIN (>89) Troponin I 20.30 NG/ML (0.02-0.05) Imaging Last Impressions Abdomen/Pelvis CT 02/27/18 0000 Signed Impressions: Service Date/Time: Tuesday, February 27, 2018 21:05 - CONCLUSION: No acute CT findings in the abdomen or pelvis. Ari Beltran MD Chest X-Ray 02/26/18 0857 Signed Impressions: Service Date/Time: Monday, February 26, 2018 09:02 - CONCLUSION: 1. 2.8 x 2.6 cm partially calcified mass in the lateral margin of the right lung stable compared to previous dated 02/22/16. Randolph Mascorro MD PE at Discharge GENERAL: Awake alert and oriented 3 SKIN: Warm and dry. HEAD: Atraumatic. Normocephalic. EYES: Pupils equal and round. No scleral icterus. No injection or drainage. Extraocular muscles intact ENT: No nasal bleeding or discharge. Mucous membranes pink and moist. NECK: Trachea midline. No JVD. CARDIOVASCULAR: IRRegular rate and rhythm. S1-S2 no S3 or S4 RESPIRATORY: No accessory muscle use. Clear to auscultation. Breath sounds equal bilaterally. GASTROINTESTINAL: Abdomen soft, non-tender, nondistended. Hepatic and splenic margins not palpable. MUSCULOSKELETAL: Extremities without clubbing, cyanosis, or edema. No obvious deformities. NEUROLOGICAL: Awake and alert. No obvious cranial nerve deficits. Motor grossly within normal limits. Five out of 5 muscle strength in the arms and legs. Normal speech. PSYCHIATRIC: Appropriate mood and affect; insight and judgment normal. Hospital Course 67-year-old gentleman who is still working daily and is quite active admitted with 2 weeks of intermittent chest discomfort and tightness worse with cardiovascular exercise and improved with rest. Patient does have paroxysmal atrial fibrillation and noted increased palpitations. He has not had dizziness but notes that the chest discomfort radiates into the neck and into his shoulders. He was quite concerned given his history of a cardiac bypass and atrial fibrillation. He came to the hospital and was found to have a elevation in the cardiac enzymes and his troponin is 2.13. He was admitted to with a diagnosis of non-ST elevation [place]. He was taken urgently to cardiac catheterization lab where he was found to have severe lesion in the limb to the obtuse marginal, which is now status post angioplasty and stent of this region. While in the CICU unit he developed sudden onset of uncontrolled tachycardia. He denies chest pain or shortness of breath. His troponins is elevated to 9. He had a stat CT of the abdomen and pelvis to rule out retroperitoneal bleed. This has been negative. SUBJECTIVE: 02/28: Patient resting in bed in no acute distress. Heart rate well controlled. Denies chest pain or shortness of breath. No hematoma at catheterization site. 03-01 TRANSFERRED TO OUR SERVICE TODAY HAS BEEN CLEARED BY CARDIOLOGY CAN BE DC ON ASPIRIN AND BRILINTA BID FOR STENT PLACED DW RN AND PT DC TO HOME TODAY Pt Condition on Discharge: Good Discharge Disposition: Discharge Home Discharge Time: > 30 minutes Discharge Instructions DIET: Follow Instructions for: Heart Healthy Diet Speech Therapy-Diet Recommends: Regular Activities you can perform: Regular-No Restrictions Other Activity Instructions: No tub baths or swimming for 1 week Follow up Referrals: Cardiology, Interventional - 3 Weeks with Mando Wright MD PCP Follow-up - 3-5 Days with Leopoldo Jiménez MD New Medications: Atorvastatin (Atorvastatin) 40 Mg Tab 40 MG PO HS for Cholesterol Management, #30 TAB Diltiazem CD 24 HR (Cardizem CD 24 HR) 180 Mg Caper 180 MG PO DAILY for Regulate Heart Beat, #30 CAP Famotidine (Famotidine) 20 Mg Tab 20 MG PO HS for Manage Heartburn, #30 TAB Metoprolol Succinate ER 24 HR (Metoprolol Succinate ER 24 HR) 50 Mg Tab 200 MG PO DAILY for Blood Pressure Management, #120 TAB Nitroglycerin SL (Nitrostat SL) 0.4 Mg Subl 0.4 MG SL Q5M PRN for CHEST PAIN, #60 TAB Continued Medications: Aspirin (Aspirin) 325 Mg Tab 325 MG PO DAILY for Blood Clot Prevention, #30 TAB 0 Refills (This prescription has been renewed) Ramipril (Ramipril) 10 Mg Cap 10 MG PO BID for Blood Pressure Management, #60 CAP 0 Refills (This prescription has been renewed) Ticagrelor (Brilinta) 90 Mg Tab 90 MG PO BID for Blood Clot Prevention, #60 TAB 0 Refills (This prescription has been renewed) Discontinued Medications: Metoprolol Tartrate (Metoprolol Tartrate) 100 Mg Tab 100 MG PO DAILY, #30 TAB 0 Refills Simvastatin (Simvastatin) 5 Mg Tab 5 MG PO DAILY for Cholesterol Management, #30 TAB 0 Refills Westley Santana DO March 01, 2018 10:40
[2018-03-01 15:44] LABS: HEMOGLOBIN A1C 5.7 % (4.3-6.0)
== END 2018-03-01 11:45 | disposition home or self-care (01) | DRG 247 ==
LOC: PHED 08:53 → PHEDA 11:14 → HCPC 16:45 → N03A 02-27 22:03
PROVIDERS: ADMIT Hospitalist; ATTEND Hospitalist
PROC: B2131ZZ Fluoroscopy of Multiple Coronary Artery Bypass Grafts using Low Osmolar Contrast (ICD-10-PCS; 2018-02-27)
PROC: B2111ZZ Fluoroscopy of Multiple Coronary Arteries using Low Osmolar Contrast (ICD-10-PCS; 2018-02-27)
PROC: 027034Z Dilation of Coronary Artery, One Artery with Drug-eluting Intraluminal Device, Percutaneous Approach (ICD-10-PCS; principal; 2018-02-27 13:45)
DX: I21.4 Non-ST elevation (NSTEMI) myocardial infarction (principal); N17.9 Acute kidney failure, unspecified; I13.0 Hypertensive heart and chronic kidney disease with heart failure and stage 1 through stage 4 chronic kidney disease, or unspecified chronic kidney disease; I50.22 Chronic systolic (congestive) heart failure; N18.2 Chronic kidney disease, stage 2 (mild); I48.0 Paroxysmal atrial fibrillation; I25.810 Atherosclerosis of coronary artery bypass graft(s) without angina pectoris; I25.110 Atherosclerotic heart disease of native coronary artery with unstable angina pectoris; Z95.5 Presence of coronary angioplasty implant and graft; M19.90 Unspecified osteoarthritis, unspecified site; R22.9 Localized swelling, mass and lump, unspecified; E78.5 Hyperlipidemia, unspecified; Z79.82 Long term (current) use of aspirin; I25.5 Ischemic cardiomyopathy; K57.30 Diverticulosis of large intestine without perforation or abscess without bleeding; Z87.891 Personal history of nicotine dependence
CPT/HCPCS: 71045; 74176; 80048; 80053; 80061; 82550; 82552; 83036; 83735; 84100; 84443; 84484; 85002; 85025; 85027; 85384; 85610; 85730; 86850; 86900; 86901; 93005; 93306; 93454; 96365; 99152; 99153; C1725; C1760; C1769; C1874; C1887; C1893; G0269; J0171; J0360; J1160; J1644; J2250; J3010; J3246; J3475; J7030; Q9967